=== PATIENT | female | born 1965 | race Caucasian/White ===

== ENCOUNTER 2018-05-13 12:10 | Emergency (ER) | payer MEDICARE, SELFPAY ==
[2018-05-13] VITALS (8 sets, daily range): BP systolic 106–135; BP diastolic 72–99; PULSE 116–145; RESP 2–33; TEMP 36.5–37.4; O2SAT 88–95
--- NOTE | 2018-05-13 12:49 | DI.RAD_ITS ---
SYMPTOMS/DIAGNOSIS: DYSPNEA CHEST: Frontal and lateral views. Comparison 06/16/13. The heart size and pulmonary vasculature are within normal limits. There is an infiltrate seen in the left lower lobe. The right lung is clear. No effusions or pneumothoraces are identified. Degenerative changes are seen in the spine. There are air filled loops of bowel seen in the abdomen. This may represent an ileus or possible obstruction. Please correlate clinically. IMPRESSION: Left lower lobe pneumonia.
[2018-05-13] MEDS: Albuterol/Ipratropium 3 ML UPD VIAL ×2 (12:53→13:00)
[2018-05-13] MEDS: Lactated Ringers 1,000 ML 1000 ML IV (13:20)
--- NOTE | 2018-05-13 13:27 | NUR.NOTE ---
To xray with Hallie via stretcher.Nursing Note:
--- NOTE | 2018-05-13 14:12 | DI.VRAD_ITS ---
EXAM: XR Chest, 2 Views EXAM DATE/TIME: 05/13/2018 1:43 PM CLINICAL HISTORY: 53 years old, female; Signs and symptoms; Other: Dyspnea TECHNIQUE: XR of the chest, 2 views. COMPARISON: CR CHEST 2 VIEWS PA,LAT 06/16/2013 5:49 PM FINDINGS: Lungs: Opacity in the left lower lobe may represent atelectasis or pneumonia. Pleural space: Unremarkable. No pleural effusion. No pneumothorax. Heart/Mediastinum: Stable cardiac silhouette Upper abdomen: Multiple air-filled loops of bowel may represent obstruction or ileus. Bones/joints: Osseous structures are stable IMPRESSION: 1. Multiple air-filled loops of bowel may represent obstruction or ileus. 2. Opacity in the left lower lobe may represent atelectasis or pneumonia. Dictated and Authenticated by: Steve Hinson MD. Ordering:SKINNY Vincent MD
[2018-05-13] MEDS: Azithromycin 250 MG TAB 500 MG PO (14:44)
[2018-05-13] MEDS: predniSONE 20 MG TAB 40 MG PO (14:46)
--- NOTE | 2018-05-13 15:00 | NUR.NOTE ---
Patient reports dizziness after sitting at stretcher edge x5 minutes. Return supine. HR and RR elevated; SpO2 on RA 88. Dr. Valero notified and now in room to reassess.Nursing Note:
[2018-05-13] MEDS: Lactated Ringers 500 ML IV ×2 (15:21→17:20)
[2018-05-13 15:23] LABS: Abs Immature Grans 0.09 k/cumm (0.0-0.09); Basophils % 0.1; HCT 40.4 % (36.0-46.0); HGB 13.5 g/dL (12.0-15.5); Immature Grans % 0.3; Lymphocytes % 2.4; Mean Corp. HGB Concentration 33.4 g/dL (32.0-36.0); Mean Corpuscular Hemoglobin 30.3 pg (27.0-33.0); Mean Corpuscular Volume 90.8 fL (80-95); Mean Platelet Volume 10.6 fL (8.0-11.0); Monocytes % 2.6; Neutrophils % 94.6; Platelet Count 331 x1000/uL (130-400); RBC 4.45 m/cumm (4.00-5.20); RBC Distribution Width 12.6 % (11.7-14.6)
[2018-05-13 15:27] LABS: Absolute Basophil Count 0.03 k/cumm (0.0-0.2); Absolute Lymphocyte Count 0.67 k/cumm (1.2-3.4); Absolute Monocyte Count 0.72 k/cumm (0.11-0.7); Absolute Neutrophil Count 26.31 k/cumm (1.2-6.7); White Blood Cell Count 27.81 k/cumm (4.4-10.8)
[2018-05-13 16:12] LABS: Anion Gap 14.8 mmol/L (3-11); BUN 16 mg/dL (7-18); CO2 22.2 mmol/L (21.0-32.0); CREATININE 1.21 mg/dL (0.55-1.02); Calcium 8.9 mg/dL (8.5-10.1); Chloride 101 mmol/L (98-107); Estimated GFR 46.55 (mL/min/1.73m2); Glucose 177 mg/dL (70-100); Potassium 3.9 mmol/L (3.5-5.1); Sodium 138 mmol/L (136-145)
[2018-05-13 16:20] LABS: Diff Comment Diff Reviewed; RBC Morphology Normal
--- NOTE | 2018-05-13 17:42 | NUR.NOTE ---
patient walked about 20 stepso2 sat maintained at 94% RA then HR increased 140 bpm and patient tachypenic Nursing Note:
--- NOTE | 2018-05-13 20:10 | ED.GENADUL_ITS ---
Discharge Plan Disposition Patient Disposition: HOME Condition: Improving Discharge Details Chief Complaint: RespSymp Clinical Impression: Bronchitis Primary Care Provider: ROMAIN MASTERSON ED Provider: Carlton Valero Home Meds and New Rx's Prescriptions: New azithromycin 250 mg tablet 250 mg PO DAILY 4 Days RF: 0 No Action gabapentin 300 MG capsule 300 mg PO TID RF: 0 Advair Diskus 1 EACH blister with device 1 puff Inhalation BID RF: 0 omeprazole 20 MG capsule,delayed release(DR/EC) 20 mg PO DAILY@0730 RF: 0 Proventil HFA 6.7 GM HFA aerosol inhaler 2 puff Inhalation PRN PRNRF: 0 fluoxetine 20 MG capsule 60 mg PO DAILY RF: 0 amitriptyline 25 mg Tablet 75 mg PO HS RF: 0 amlodipine 2.5 mg Tablet 2.5 mg PO DAILY RF: 0 mirtazapine 30 mg Tablet 30 mg PO HS RF: 0 aspirin 81 mg Tablet,Chewable 81 mg PO DAILY RF: 0 calcium carbonate-vitamin D3 [Calcium 500 + D (D3)] 500 mg(1,250mg) -125 unit Tablet 1 tab PO DAILY RF: 0 Discharge Instructions Instructions: Acute Bronchitis (ED) Additional Instructions: 1. Drink plenty fluids. 2. Continue usual medications, including prednisone as directed. 3. Azithromycin 250 mg once a day starting tomorrow. Return for worsening fever, difficulty breathing, chest pain, palpitations, nausea/vomiting, or any concerns. Referrals: ROMAIN MASTERSON [Primary Care Provider] - Medical Decision Making 53-year-old woman with previous episodes of bronchitis/RAD. Presents for persistent cough and dyspnea refractory to outpatient management with prednisone and albuterol. No distress on initial evaluation with mild tachypnea and diffuse wheezing. Minimal subjective improvement after receiving albuterol x2, however has improved respiratory function on reevaluation. Patient with mild hypoxia (SaO2 = 88) on room air and tachycardia. Gradual clinical improvement with IV hydration. Labs nondiagnostic (leukocytosis on steroids), CXR sugge stive of a possible left lower lobe process. Treated in the ED with additional prednisone and azithromycin. Multiple re-evaluations with gradual improvement in respiratory function and heart rate. Later walked in the ED with SaO2 = 94 on room air and heart rate 105. Discharge home with a plan for aggressive hydration, continue prednisone and albuterol, and azithromycin. She will follow-up with her PCP. Given usual and customary return instructions prior to discharge. Medical Records Medical records reviewed: Yes I reviewed the patient's medical records. Imaging Data Radiologic Study: Attestation: I personally reviewed and interpreted this imaging study as follows: Imaging: X-Ray My impression: No acute pulmonary findings. Images and interpreted independently and contemporaneously myself. Radiologist's impression: Possible left lower lobe opacity. Air-filled loops of bowel. Lab Data Lab results reviewed: Yes I reviewed the patient's lab results. Lab results narrative: WBC = 20 8K (patient on steroids), GFR = 47, glucose = 177 ECG Data Attestation: I personally reviewed and interpreted this ECG (s) as follows: (Rhythm strip: sinus tachycardia) 53-year-old woman with past medical history of anxiety, diverticulitis, and recurrent bronchitis/RAD. She typically uses albuterol at home as needed. Recently evaluated by her PCP for cough and dyspnea. Treated with prednisone. However, presents with persistent cough and subjective lack of improvement from her Tessalon Perles, prednisone, and albuterol. Denies fever/chills, chest pain, abdominal pain, palpitations. Symptoms it feels subjectively similar to previous episodes of bronchitis. HPI General Date/Time Provider Initiated Documentation: 05/13/18 12:35 . Related Data Home Medications Medication Instructions Recorded Confirmed Proventil HFA 2 puff INHALATION PRN PRN 09/26/12 05/13/18 fluoxetine 60 mg PO DAILY 09/26/12 05/13/18 fluticasone-salmeterol [Advair 1 puff INHALATION BID 09/26/12 05/13/18 250/50 Diskus] omeprazole 20 mg PO DAILY@0730 09/26/12 05/13/18 gabapentin 300 mg PO TID tab-cap NS 08/04/15 05/13/18 amitriptyline 75 mg PO HS 05/13/18 05/13/18 amlodipine 2.5 mg PO DAILY 05/13/18 05/13/18 aspirin 81 mg PO DAILY 05/13/18 05/13/18 azithromycin 250 mg PO DAILY 4 Days tab NS 05/13/18 calcium carbonate-vitamin D3 1 tab PO DAILY 05/13/18 05/13/18 [Calcium 500 + D (D3)] mirtazapine 30 mg PO HS 05/13/18 05/13/18 Previous Rx's Medication Instructions Recorded azithromycin 250 mg PO DAILY 4 Days tab NS 05/13/18 Allergies Allergy/AdvReac Type Severity Reaction Status Date / Time No Known Allergies Allergy Unverified 05/13/18 15:23 General Stated Complaint: RespSymp NIRU: 2 Review of Systems Review of Systems All systems reviewed & are unremarkable except as noted in HPI and below Constitutional Denies excessive sweating and Denies fatigue Eyes Denies change in vision ENT Reports as per HPI, Denies dysphagia and Denies dizziness Cardiovascular Reports as per HPI, Denies chest pain, Denies leg edema and Reports dyspnea Respiratory Reports cough, Reports dyspnea and Reports wheezing Gastrointestinal Denies dysphagia Genitourinary Reports as per HPI Musculoskeletal Reports as per HPI, Denies back pain and Denies muscle weakness Neurologic Denies confusion and Denies dizziness Psychiatric Reports as per HPI, Denies anxiety, Denies change in appetite and Denies confusion Endocrine Denies excessive sweating and Denies fatigue Hematologic/Lymphatic Denies easy bleeding and Denies easy bruising Allergic/Immunologic Reports wheezing PFSH Medical History Abnormal finding on EKG Anxiety Asthma Candidiasis of skin Depression GERD (gastroesophageal reflux disease) Hip pain IBS (irritable bowel syndrome) Learning disability Surgical History Appendectomy Arthroplasty of knee section Laparoscopy, diagnostic Ligation of fallopian tube Replacement of total knee joint cardiac cath Family History Other Diabetes Essential hypertension Hyperlipidemia Social History Smoking/Tobacco Use Status: Never Exam Const General: cooperative, comfortable and not in acute distress Orientation: alert and awake HENMT Head: normocephalic and atraumatic Eyes Conjunctivae: conjunctivae normal Sclera: sclerae normal Neck Neck: normal visual inspection and full ROM Resp Effort & Inspection: abnormal respiratory pattern, audible wheezes (DIFFUSE) and tachypneic (MILD) Auscultation: clear to auscultation bilaterally, no rales, no rhonchi and no wheezes Cardio Rate: regular rate Rhythm: regular rhythm Heart Sounds: S1 normal and S2 normal GI Palpation: soft, not rigid and nontender Skin Lesions: no lesions Rashes: no rashes Neuro General: alert and awake Speech: speech normal Motor: muscle tone normal throughout Extrem General: no edema Psych Mental Status: mental status grossly normal Speech and Movement: speech and movement normal Course Vital Signs Temperature 98.1 F 05/13/18 12:25 Pulse 145 H 05/13/18 12:25 Respiratory Rate 24 05/13/18 12:25 Blood Pressure 122/99 H 05/13/18 12:25 Pulse Oximetry 92 L 05/13/18 12:25 Temperature 98.1 F 05/13/18 12:25 Temperature Source Temporal Artery Scan 05/13/18 12:25 Pulse 145 H 05/13/18 12:25 Respiratory Rate 24 05/13/18 12:25 Blood Pressure 122/99 H 05/13/18 12:25 Blood Pressure Position Sitting 05/13/18 12:25 Pulse Oximetry 92 L 05/13/18 12:25 Oxygen Delivery Method Room Air 05/13/18 12:25 Oxygen Flow Rate 0 05/13/18 12:25 Pain Level 0 05/13/18 12:25
== END 2018-05-13 18:39 | disposition home or self-care (01) ==
PROVIDERS: Emergency Provider Emergency Medicine; PCP Family Medicine
DX: J40 Bronchitis, not specified as acute or chronic (principal)
CPT/HCPCS: 36415; 80048; 87449; 93005; 94640; 96360; 96361; 99284; 71046; 85025; 93010; 99283; J7512; J7620

== ENCOUNTER 2020-08-30 07:36 | Observation (INO) | payer SELFPAY ==
[2020-08-30] VITALS (94 sets, daily range): BP systolic 99–133; BP diastolic 55–104; PULSE 64–87; RESP 11–26; TEMP 36.1–36.9; O2SAT 95–100
--- NOTE | 2020-08-30 07:30 | RT.EKG_ITS ---
APPROVED REPORT Exam: Resting ECG Patient Location: E HR:81 bpm ECG Measurements Heart Rate 81 AXIS WA 175 P 54 QRSd 88 QRS 44 QT 390 T 35 QTc 455 Conclusion Sinus rhythm...normal P axis, V-rate 60- 99 Abnormal T, consider ischemia, anterior leads...T <-0.20mV, V2-V4 Physician: EKG 7: 47 Sinus rhythm, rate 81, intervals normal, inverted T waves and slight depression in V2 through V4. No reciprocal ST elevations. No evidence of STEMI. Comparison from prior EKG on 05/13/2018 demonstrates similar findings but the depression seems to be more pronounced now in V3.
--- NOTE | 2020-08-30 08:09 | DI.RAD_ITS ---
EXAM: XR PORTABLE CHEST AP CLINICAL HISTORY: chest heaviness. TECHNIQUE: 2D digital imaging was performed. COMPARISON: CR XR CHEST 2V PA LATERAL from 05/13/2018 FINDINGS: Heart size is normal. The mediastinum is not widened. Lungs are clear. No infiltrates nor obvious pleural effusions. Chest leads in place. IMPRESSION: No acute pulmonary findings on this single AP portable view of the chest. DATA REPOSITORY: RADIATION DOSE DELIVERED: All CT scans at this facility use at least one of these dose optimization techniques: automated exposure control; mA and/or kV adjustment per patient size (includes targeted e xams where dose is matched to clinical indication); or iterative reconstruction.
[2020-08-30] MEDS: nitroGLYcerin 0.4 MG TAB SL ×2 (08:21→08:33)
[2020-08-30] MEDS: Aspirin 81 MG CHEW 324 MG CH (08:21)
[2020-08-30 08:23] LABS: Abs Immature Grans 0.02 10^3/uL (0.0-0.06); Absolute Basophil Count 0.06 10^3/uL (0.0-0.2); Absolute Eosinophil Count 0.13 10^3/uL (0.0-0.7); Absolute Lymphocyte Count 1.96 10^3/uL (1.2-3.4); Absolute Monocyte Count 0.28 10^3/uL (0.1-0.8); Absolute Neutrophil Count 4.95 10^3/uL (1.2-6.7); Basophils % 0.8; Eosinophils % 1.8; HCT 41.4 % (36.0-46.0); HGB 13.6 g/dL (11.2-15.7); Immature Grans % 0.3; Lymphocytes % 26.5; MCH 30.8 pg (27.0-33.0); MCHC 32.9 % (32.0-36.0); MCV 93.9 fL (80-95); MPV 9.5 fL (8.0-11.0); Monocytes % 3.8; Neutrophils % 66.8; Nucleated RBC 0 %; Platelet Count 321 10^3/uL (130-400); RBC 4.41 10^6/uL (3.93-5.22); RDW 12.2 % (11.7-14.6); RDW-SD 42.5 fL
--- NOTE | 2020-08-30 08:28 | ED.GENADUL_ITS ---
Discharge Plan Disposition Patient Disposition: [facility] INPATIENT Condition: Stable Discharge Details Chief Complaint: Chest Pain Clinical Impression: Chest pain Primary Care Provider: Blanca Sky ED Provider: Gene Alberts Home Meds and New Rx's Prescriptions: No Action gabapentin 300 MG capsule 300 mg PO TID RF: 0 fluticasone propion-salmeterol [Advair Diskus] 1 EACH blister with device 1 puff Inhalation BID RF: 0 omeprazole 20 MG capsule,delayed release(DR/EC) 20 mg PO DAILY@0730 RF: 0 albuterol sulfate [Proventil HFA] 6.7 GM HFA aerosol inhaler 2 puff Inhalation PRN PRNRF: 0 fluoxetine 20 MG capsule 60 mg PO DAILY RF: 0 amitriptyline 25 mg Tablet 75 mg PO HS RF: 0 amlodipine 2.5 mg Tablet 2.5 mg PO DAILY RF: 0 mirtazapine 30 mg Tablet 30 mg PO HS RF: 0 aspirin 81 mg Tablet,Chewable 81 mg PO DAILY RF: 0 calcium carbonate-vitamin D3 [Calcium 500 + D (D3)] 500 mg(1,250mg) -125 unit Tablet 1 tab PO DAILY RF: 0 Medical Decision Making 55-year-old female with a past medical history of diverticulitis, GERD, anxiety, who has had previous chest pain and subsequent negative cardiac catheterization 3 years ago presents today for evaluation of left-sided chest pain. Patient states that since yesterday she has been having mild chest heaviness which she describes as a heavy brick being on her chest. It radiates to her left arm and has associated tingling down her left arm in her fingertips. It seems to be worsened with activity when she gets up and performs her work or goes up a flight of stairs, and seems to be mildly improved when she rests but does not go away with rest completely. She did take a single baby aspirin at home with no change. She has admitted to a significant amount of stress at home however over the last 2 days she states that she has been avoiding the person of stress and this is not been seemingly contributing to her symptoms. She denies any pleuritic chest pain, tearing sensation in her chest, syncope, previous cardiac disease or family history of heart attack. Denies PE risk factors such as recent long car rides, immobilization, recent surgery, prior history of DVT or PE, family history of PE or DVT, morbid obesity, exogenous estrogen and smoking, hemoptysis, history of cancer. Physical exam is unremarkable, no evidence of significant reproducible tenderness, vital signs are stable. Patient does not have any risk factors for ACS, however her symptoms of exertional and activity related chest pain are concerning. Her negative cardiac catheterization 3 years ago is certainly reassuring. Initial work-up here demonstrates normal CBC, unremarkable electrolytes, proBNP is not significantly elevated suggesting no significant cardiac strain. Symptoms appear inconsistent with PE or aortic dissection. Initial troponin is normal. EKG does show some concern. Inverted T waves with slight depression in V2 through V4. Previous EKG from 05/13/2018 demonstrates similar findings but the data depression seem to be slightly more exacerbated now. 2 nitroglycerin were given and this did slightly improve the patient's pain from 10 to a 6, but did not resolve it. Pain does seem to be mild though still at this time. She was given full dose aspirin. With her age and symptomatology in conjunction with EKG findings I do feel that observation and stress test tomorrow is indicated. We will contact the hospitalist for admis slava. 12:19 PM We did contact the hospitalist Dr. Daly. She did request that we get a repeat troponin prior to admission. Repeat troponin has returned and is normal. Patient remains clinically stable. Will admit for continued serial troponins and likely stress testing tomorrow. Dr. Daly agrees with plan and is placing orders for admission. I have extensively reviewed the treatment plan with the patient. I have addressed all patient concerns at this time. I have also discussed the plan with the admitting physician and they agree with the current assessment and plan and have agreed to assume responsibility for the patient. All parties demonstrate verbal understanding and agreement with our assessment and plan at this time. The documentation in this chart was dictated using [employer] dictation software. Please excuse any dictation errors. EKG 7: 47 Sinus rhythm, rate 81, intervals normal, inverted T waves and slight depression in V2 through V4. No reciprocal ST elevations. No evidence of STEMI. Comparison from prior EKG on 2017 demonstrates similar findings but the depression seems to be more pronounced now in V3. FINDINGS: Lungs: Unremarkable. No consolidation. Pleural spaces: Unremarkable. No pleural effusion. No pneumothorax. Heart/Mediastinum: The cardiomediastinal silhouette is fairly stable in appearance, allowing for differences in technique. Bones/joints: Unremarkable. IMPRESSION: No evidence for acute pulmonary disease. Thank you for allowing us to participate in the care of your patient. Dictated and Authenticated by: Mike Freeman MD 08/30/2020 10:03 AM Eastern Time ([place] & [place]) HPI General Date/Time Provider Initiated Documentation: 08/30/20 07:58 . HPI Narrative: 55-year-old female with a past medical history of diverticulitis, GERD, anxiety, who has had previous chest pain and subsequent negative cardiac catheterization 3 years ago presents today for evaluation of left-sided chest pain. Patient states that since yesterday she has been having mild chest heaviness which she describes as a heavy brick being on her chest. It radiates to her left arm and has associated tingling down her left arm in her fingertips. It seems to be worsened with activity when she gets up and performs her work or goes up a flight of stairs, and seems to be mildly improved when she rests but does not go away with rest completely. She did take a single baby aspirin at home with no change. She has admitted to a significant amount of stress at home however over the last 2 days she states that she has been avoiding the person of stress and this is not been seemingly contributing to her symptoms. She denies any pleuritic chest pain, tearing sensation in her chest, syncope, previous cardiac disease or family history of heart attack. Denies PE risk factors such as recent long car rides, immobilization, recent surgery, prior history of DVT or PE, family history of PE or DVT, morbid obesity, exogenous estrogen and smoking, hemoptysis, history of cancer. Related Data Home Medications Medication Instructions Recorded Confirmed albuterol sulfate [Proventil HFA] 2 puff INHALATION PRN PRN 09/26/12 08/30/20 fluoxetine 60 mg PO DAILY 09/26/12 08/30/20 fluticasone propion-salmeterol 1 puff INHALATION BID 09/26/12 08/30/20 [Advair 250/50 Diskus] omeprazole 20 mg PO DAILY@0730 09/26/12 08/30/20 gabapentin 300 mg PO TID tab-cap NS 08/04/15 08/30/20 amitriptyline 75 mg PO HS 05/13/18 08/30/20 amlodipine 2.5 mg PO DAILY 05/13/18 08/30/20 aspirin 81 mg PO DAILY 05/13/18 08/30/20 calcium carbonate-vitamin D3 1 tab PO DAILY 05/13/18 08/30/20 [Calcium 500 + D (D3)] mirtazapine 30 mg PO HS 05/13/18 08/30/20 Allergies Allergy/AdvReac Type Severity Reaction Status Date / Time No Known Allergies Allergy Unverified 05/13/18 15:23 General Stated Complaint: Chest Pain NIRU: 3 Review of Systems All systems reviewed & are unremarkable except as noted in HPI and below PFSH Medical History Abnormal finding on EKG had normal cath in past. Saw Cardiology resently and was cleared for surgery Anxiety Asthma Candidiasis of skin Depression GERD (gastroesophageal reflux disease) Hip pain IBS (irritable bowel syndrome) Learning disability Surgical History Appendectomy Arthroplasty of knee left cardiac cath section Laparoscopy, diagnostic with drainage of ovarian cyst Ligation of fallopian tube Replacement of total knee joint right Family History Other Diabetes Essential hypertension Hyperlipidemia Social History Smoking/Tobacco Use Status: Never Smoking risk assessment performed?: Yes Alcohol Intake: never Drug use: Never Substance use type: does not use Do you feel safe at home: Yes Do you feel safe in your relationship?: Yes Exam Narrative Exam Narrative: 1.Const: Well-nourished, Well-developed, appearing stated age 2.Eyes: PERRL, no conjunctival injection, and symmetrical lids. 3.ENT: Atraumatic external nose and ears. Moist MM. Neck: Symmetric, trachea midline, No thyromegaly. 4.CVS: +S1/S2, No murmurs or gallops. Peripheral pulses 2+ and equal in all extremities. Brisk capillary refill in all extremities. 5.RESP: Unlabored respiratory effort. Clear to auscultation bilaterally. No wheezes rales or rhonchi. No reproducible chest wall tenderness 6.GI: Soft, Nontender/Nondistended, No hepatosplenomegaly. No guarding or rebound. 7.MSK: Normocephalic/Atraumatic, Extremities w/o deformity or ttp No cyanosis or clubbing, Normal movement of all extremities 8.Skin: Warm, Dry. No rashes or lesions. 9.Neuro: sas clinical programmer II-XII grossly intact. Sensation grossly intact, no focal neurologic deficits. 10.Psych: (AAO) x3. Appropriate mood and affect Course Vital Signs Vital signs: Vital Signs Temperature 36.5 C 08/30/20 07:42 Pulse 77 08/30/20 07:42 Respiratory Rate 18 08/30/20 07:42 Blood Pressure 132/89 08/30/20 07:42 Pulse Oximetry 99 08/30/20 07:42 Temperature 36.5 C 08/30/20 07:42 Temperature Source Temporal Artery Scan 08/30/20 07:42 Pulse 75 08/30/20 08:26 Pulse 75 08/30/20 08:26 Respiratory Rate 14 08/30/20 08:26 Respiratory Effort Non-Labored 08/30/20 07:55 Respiratory Depth Normal 08/30/20 07:55 Respiratory Pattern Normal 08/30/20 07:55 Blood Pressure 126/72 08/30/20 08:26 Blood Pressure Mean 86 08/30/20 08:26 Blood Pressure Position Sitting 08/30/20 07:42 Pulse Oximetry 98 08/30/20 08:26 Oxygen Delivery Method Room Air 08/30/20 07:42 Oxygen Flow Rate 0 08/30/20 07:42 Lab/Test Results Lab/Test Results: Laboratory Tests Range/Units 08/30/20 07:52 WBC (4.4-10.8) 10^3/uL 7.40 RBC (3.93-5.22) 10^6/uL 4.41 Hgb (11.2-15.7) g/dL 13.6 Hct (36.0-46.0) % 41.4 MCV (80-95) fL 93.9 MCH (27.0-33.0) pg 30.8 MCHC (32.0-36.0) % 32.9 RDW (11.7-14.6) % 12.2 Plt Count (130-400) 10^3/uL 321 MPV (8.0-11.0) fL 9.5 Immature Gran % 0.3 Neutrophils % 66.8 Lymphocytes % 26.5 Monocytes % 3.8 Eosinophils % 1.8 Basophils % 0.8 Nucleated RBC % % 0 Absolute Neutrophils (1.2-6.7) 10^3/uL 4.95 Absolute Lymphocytes (1.2-3.4) 10^3/uL 1.96 Absolute Monocytes (0.1-0.8) 10^3/uL 0.28 Absolute Eosinophils (0.0-0.7) 10^3/uL 0.13 Absolute Basophils (0.0-0.2) 10^3/uL 0.06
[2020-08-30 08:39] LABS: PTT Activated 23.8 sec (21.0-27.5); Prothrombin Time 10.3 sec (9.3-11.0)
[2020-08-30 08:45] LABS: ALT 17 U/L (14-59); AST 9 U/L (15-37); Albumin 3.6 g/dL (3.4-5.0); Alkaline Phosphatase 86 U/L (46-116); BUN 21 mg/dL (7-18); Bilirubin, Total 0.3 mg/dL (0.2-1.0); CREATININE 0.8 mg/dL (0.55-1.02); Calcium 8.8 mg/dL (8.5-10.1); Chloride 107 mmol/L (98-107); Glucose 73 mg/dL (74-106); NT-proBNP 377 pg/mL (<300); Potassium 3.6 mmol/L (3.5-5.1); Sodium 144 mmol/L (136-145)
[2020-08-30 08:50] LABS: Troponin I < 0.05 ng/mL (<0.06)
--- NOTE | 2020-08-30 10:04 | DI.VRAD_ITS ---
PROCEDURE INFORMATION: Exam: XR Chest Exam date and time: 08/30/2020 9:31 AM Age: 55 years old Clinical indication: Other: Chest heaviness TECHNIQUE: Imaging protocol: XR of the chest. Views: 1 view. (2 images total) COMPARISON: CR XR CHEST 2V PA LATERAL 05/13/2018 1:37 PM FINDINGS: Lungs: Unremarkable. No consolidation. Pleural spaces: Unremarkable. No pleural effusion. No pneumothorax. Heart/Mediastinum: The cardiomediastinal silhouette is fairly stable in appearance, allowing for differences in technique. Bones/joints: Unremarkable. IMPRESSION: No evidence for acute pulmonary disease. Dictated and Authenticated by: Mike Freeman MD. Ordering:ABIEL Mills MD
[2020-08-30 11:33] LABS: Troponin I < 0.05 ng/mL (<0.06)
[2020-08-30 12:36] LABS: Source Nasal/Nares
--- NOTE | 2020-08-30 13:05 | W.PM.HP.N ---
Date of service: 08/30/20 Time of Service: 13:16 Assessment and Plan Assessment and plan (1) Chest pain: Start date: 08/30/20 Start time: 13:41 Status: Acute Assessment and plan: CP sounds to be more anxiety related with increased stresses in life in the last 2 weeks, however per ED abnormal EKG although she has had 2 negative cardiac caths and trops negative Will admit to obs on teley NPO after MN Stress in am Valium for anxiety Give prozac now as she has not taken yet Chest pain when pressing on chest. no numbness tingling or other associated sx at this time. (2) Anxiety: Start date: 08/30/20 Start time: 13:44 Status: Chronic Assessment and plan: as above. case discussed with Dr. Daly History of Present Illness History of Present Illness Chief Complaint: CP, Anxiety Narrative: 55 y.o female with hx of HLD, depression, anxiety, states worsening anxiety over the last week dealing with her mother and her nephew. She lives with her mother in a small 2 bd room apartment and states she has realized over the last 2 weeks she can no longer continue to live with her due to the way she is treated by her. Pt states CP started yesterday after dealing with her mother giving her nephew her cell phone and being treated poorly she developed CP, no associated SOB or other symptoms. She thought it was nothing until the chest pain started traveling down her left arm with numbness tingling to her fingers. ED work up with nothing unremarkable bnp 377, otherwise normal, imaging no evidence of acute pulmonary disease. She is being admitted to m/s on teley for further management. NPO after MN with Stress test tomorrow. Pain is point tenderness. Review of Systems All systems reviewed & are unremarkable except as noted in HPI and below PFSH Medical History Abnormal finding on EKG had normal cath in past. Saw Cardiology resently and was cleared for surgery Anxiety Asthma Candidiasis of skin Depression GERD (gastroesophageal reflux disease) Hip pain IBS (irritable bowel syndrome) Learning disability Surgical History Appendectomy Arthroplasty of knee left cardiac cath section Laparoscopy, diagnostic with drainage of ovarian cyst Ligation of fallopian tube Replacement of total knee joint right Family History Other Diabetes Essential hypertension Hyperlipidemia Social History Smoking/Tobacco Use Status: Never Smoking risk assessment performed?: Yes Alcohol Intake: never Drug use: Never Substance use type: does not use Do you feel safe at home: Yes Do you feel safe in your relationship?: Yes Meds Allergies and Home Medications Allergies Allergy/AdvReac Type Severity Reaction Status Date / Time No Known Allergies Allergy Unverified 05/13/18 15:23 Home Medications Medication Instructions Recorded Confirmed Type albuterol sulfate [Proventil HFA] 2 puff INHALATION PRN PRN 09/26/12 08/30/20 History fluoxetine 60 mg PO DAILY 09/26/12 08/30/20 History fluticasone propion-salmeterol 1 puff INHALATION BID 09/26/12 08/30/20 History [Advair 250/50 Diskus] omeprazole 20 mg PO DAILY@0730 09/26/12 08/30/20 History gabapentin 300 mg PO TID tab-cap NS 08/04/15 08/30/20 History amitriptyline 75 mg PO HS 05/13/18 08/30/20 History amlodipine 2.5 mg PO DAILY 05/13/18 08/30/20 History aspirin 81 mg PO DAILY 05/13/18 08/30/20 History calcium carbonate-vitamin D3 1 tab PO DAILY 05/13/18 08/30/20 History [Calcium 500 + D (D3)] mirtazapine 30 mg PO HS 05/13/18 08/30/20 History Exam Const General: cooperative, comfortable, no acute distress, No well groomed (disheveled), anxious and disheveled Nutritional Appearance: average body habitus Orientation: alert, awake and oriented x3 HENMT Head: normal to inspection, normocephalic and atraumatic Mouth: moist mucous membranes Teeth and gingiva: abnormal dentition and poor dentition Eyes Pupils: PERRL EOM: EOM intact bilaterally Neck Neck: full ROM and no JVD Lymphatic: no lymphadenopathy noted Chest Chest: normal inspection of the chest Resp Effort & Inspection: normal respiratory effort Auscultation: clear to auscultation bilaterally Cardio Jugular venous pressure: no JVD Rate: regular rate Rhythm: regular rhythm Heart Sounds: S1 normal and S2 normal GI Inspection: normal to inspection Auscultation: normal bowel sounds Skin General skin exam: no rashes or lesions noted Neuro General: patient alert, patient awake and patient oriented x3 Extrem General: normal to inspection, full ROM and no pedal edema Psych Appearance: disheveled Mental Status: mental status grossly normal Speech and Movement: speech and movement normal Mood: anxious mood Results Labs Result diagrams: 08/30/20 07:52 08/30/20 07:52 Labs: Laboratory Results - last 24 hr 08/30/20 08/30/20 08/30/20 07:52 07:52 07:52 WBC 7.40 RBC 4.41 Hgb 13.6 Hct 41.4 MCV 93.9 MCH 30.8 MCHC 32.9 RDW 12.2 Plt Count 321 MPV 9.5 Immature Gran % 0.3 Neutrophils % 66.8 Lymphocytes % 26.5 Monocytes % 3.8 Eosinophils % 1.8 Basophils % 0.8 Nucleated RBC % 0 Absolute Neutrophils 4.95 Absolute Lymphocytes 1.96 Absolute Monocytes 0.28 Absolute Eosinophils 0.13 Absolute Basophils 0.06 PT 10.3 INR 1.0 APTT 23.8 Sodium 144 Potassium 3.6 Chloride 107 Carbon Dioxide 29.0 Anion Gap 8.0 BUN 21 H Creatinine 0.8 Estimated GFR/1.73 m2 >= 60.00 Glucose 73 L Calcium 8.8 Magnesium 2.0 Total Bilirubin 0.3 AST 9 L ALT 17 Alkaline Phosphatase 86 Troponin I < 0.05 NT-Pro-B Natriuret Pep 377 H Total Protein 7.0 Albumin 3.6 COVID-19 Source 08/30/20 08/30/20 11:09 12:30 WBC RBC Hgb Hct MCV MCH MCHC RDW Plt Count MPV Immature Gran % Neutrophils % Lymphocytes % Monocytes % Eosinophils % Basophils % Nucleated RBC % Absolute Neutrophils Absolute Lymphocytes Absolute Monocytes Absolute Eosinophils Absolute Basophils PT INR APTT Sodium Potassium Chloride Carbon Dioxide Anion Gap BUN Creatinine Estimated GFR/1.73 m2 Glucose Calcium Magnesium Total Bilirubin AST ALT Alkaline Phosphatase Troponin I < 0.05 NT-Pro-B Natriuret Pep Total Protein Albumin COVID-19 Source Nasal/nares Last Vital Signs Temp 36.5 C 08/30/20 07:42 Pulse 75 08/30/20 12:31 Resp 22 08/30/20 12:31 BP 129/81 08/30/20 12:31 Pulse Ox 97 08/30/20 12:31 COVID-19 Screening Have you, or household traveled for leisure in last 14 days?: No Had IN PERSON contact w/suspected or confirmed C-19 person: No
[2020-08-30] MEDS: Enoxaparin 40 MG/0.4 ML SYR SC (13:58)
[2020-08-30] MEDS: FLUoxetine 20 MG CAP 60 MG PO (13:58)
[2020-08-30] MEDS: Gabapentin 300 MG CAP PO ×2 (13:58→19:47)
[2020-08-30] MEDS: diazePAM 5 MG TAB PO (13:58)
--- NOTE | 2020-08-30 15:45 | RT.EKG_ITS ---
APPROVED REPORT Exam: Resting ECG Patient Location: I HR:65 bpm ECG Measurements Heart Rate 65 AXIS MS 194 P 33 QRSd 89 QRS 41 QT 420 T 17 QTc 438 Conclusion Sinus rhythm...normal P axis, V-rate 60- 99 Abnormal T, consider ischemia, anterior leads...T <-0.20mV, V2-V4
[2020-08-30] MEDS: Ibuprofen 600 MG TAB PO ×2 (16:24→19:46)
[2020-08-30 19:40] LABS: COVID-19 PCR Negative (Negative)
[2020-08-30] MEDS: Budesonide/Formoterol 160/4.5 6 GM 60 PUFF INH IH (19:47)
[2020-08-30] MEDS: Normal Saline Flush 10 ML SYR IVP (20:28)
[2020-08-30 21:08] LABS: Troponin I < 0.05 ng/mL (<0.06)
[2020-08-30] MEDS: Amitriptyline 25 MG TAB 75 MG PO (21:09)
[2020-08-30] MEDS: Mirtazapine 15 MG TAB 30 MG PO (21:10)
[2020-08-31 00:27] VITALS: PULSE 68
[2020-08-31 03:53] VITALS: BP 102/67; PULSE 66; RESP 17; TEMP 36; O2SAT 95
[2020-08-31 06:37] VITALS: BP 105/71; PULSE 68; RESP 17; TEMP 36.2; O2SAT 97
[2020-08-31 07:09] LABS: Anion Gap 8.6 mmol/L (3-11); BUN 20 mg/dL (7-18); CO2 27.4 mmol/L (21.0-32.0); CREATININE 0.8 mg/dL (0.55-1.02); Calcium 8.9 mg/dL (8.5-10.1); Chloride 109 mmol/L (98-107); Glucose 83 mg/dL (74-106); Potassium 4.1 mmol/L (3.5-5.1); Sodium 145 mmol/L (136-145)
[2020-08-31 07:20] VITALS: PULSE 71
[2020-08-31] MEDS: Ibuprofen 600 MG TAB PO ×2 (07:48→14:01)
[2020-08-31] MEDS: Gabapentin 300 MG CAP PO ×2 (07:48→14:01)
[2020-08-31] MEDS: Omeprazole 20 MG CAPCR PO (07:48)
[2020-08-31] MEDS: Aspirin 81 MG CHEW PO (07:48)
[2020-08-31] MEDS: Normal Saline Flush 10 ML SYR IVP (07:49)
[2020-08-31] MEDS: FLUoxetine 20 MG CAP 60 MG PO (07:49)
[2020-08-31] MEDS: amLODIPine 2.5 MG TAB PO (07:49)
[2020-08-31] MEDS: Budesonide/Formoterol 160/4.5 6 GM 60 PUFF INH IH (09:26)
--- NOTE | 2020-08-31 12:19 | PDOC.CMIN ---
- If Service Date Differs Date of service: 08/31/20 Time of Service: 12:19 Care Management Initial Assess REASON FOR HOSPITALIZATION:: Chest Pain PAST MEDICAL HISTORY/PAST SURGICAL HISTORY:: Anxiety, Chest pain, abnormal finding on EKG, asthma, candidiasis of skin, depression, GERD, IBS, hip pain, learning disability, appendectomy, arthroplasty of knee, cardiac cath, section, diagnostic laparoscopy with drainage of ovarian cyst, ligation of fallopian tube, right TKA, picking self injurious behavior r/t anxiety with scattered scarring on body. Moderna vaccine [facility] in [place]. PREVIOUS FUNCTIONAL STATUS/SOCIAL/FAMILY SUPPORTS:: Ana resides in [place] with her mother and nephew in an apartment. She is and belongs to [employer]. She is employed and independent at baseline in the community. CURRENT FUNCTIONAL STATUS:: Ana discharged prior to CM connecting with her. IA developed from case review and chart review. CHAD Sumner connected with Ana who shared no concerns re: discharge and identified no additional needs at that time. ADVANCE DIRECTIVES:: On file at [facility]-patient provided new copy to update. Has patient been provided with info about the portal/API?: Yes Did the patient sign up for the portal?: No CODE STATUS:: Full Code INSURANCE COVERAGE / FINANCIAL ISSUES:: Self Pay-JOSE referral for education and financial asst. CURRENT HOME/COMMUNITY SERVICES/EQUIPMENT:: Hearing aide. PRIMARY CARE PHYSICIAN:: Blanca Sky POTENTIAL DISCHARGE NEEDS:: JOSE-insurance, updated AD, discussion central to anxiety/depression and self harm resources. Follow up appointments. MPI Stress test. PATIENT/FAMILY EDUCATION NEEDS:: Review of discharge instructions, discuss Ask Me Three. ANTICIPATED BARRIERS TO DISCHARGE:: None identified. TRANSPORTATION:: Via private vehicle with family/friend. PLAN:: Anticipate Ana will return home when ready per MD. She will follow up with her PCP and plan of care as prescribed. She will transport via private vehicle with family/friend.
--- NOTE | 2020-08-31 13:27 | W.PM.DS.N ---
Date of service: 08/31/20 Time of Service: 13:28 DS: Diagnosis Discharge Diagnosis (1) Chest pain: Status: Acute (2) Anxiety: Status: Chronic Discharge Plan Disposition Patient Disposition: HOME Condition: Stable Discharge Details Reason For Visit: CHEST PAIN Admit Date/Time: 08/30/20 12:07 Admit Provider: Courtney Daly Attending Provider: Courtney Daly Primary Care Provider: [facility] Course Hospital Course: This is a 55 y.o female with hx of HLD, depression, anxiety, who has experienced worsening anxiety over the last week dealing with her mother and her nephew. She lives with her mother in a small 2 bd room apartment and states she has realized over the last 2 weeks she can no longer continue to live with her due to the way she is treated by her. Pt states CP started after dealing with her mother giving her nephew her cell phone and being treated poorly. She thought it was nothing until the chest pain started traveling down her left arm with numbness tingling to her fingers. ED work up unremarkable except bnp 377, imaging no evidence of acute pulmonary disease. She referred to observation on m/s on telemetry for further monitoring. overnight she remained hemodynamically stable with no acute ST segment changes and negative serial troponins. her pain was responsive to heat and exacerbated with palpation. Her pain is not cardiac and she is safe for discharge to home to follow up with pcp outpatient. discharge discussed with Dr Daly. Home Meds and New Rx's Prescriptions: Continued gabapentin 300 MG capsule 300 mg PO TID RF: 0 fluticasone propion-salmeterol [Advair Diskus] 1 EACH blister with device 1 puff Inhalation BID RF: 0 omeprazole 20 MG capsule,delayed release(DR/EC) 20 mg PO DAILY@0730 RF: 0 albuterol sulfate [Proventil HFA] 6.7 GM HFA aerosol inhaler 2 puff Inhalation PRN PRNRF: 0 fluoxetine 20 MG capsule 60 mg PO DAILY RF: 0 amitriptyline 25 mg Tablet 75 mg PO HS RF: 0 amlodipine 2.5 mg Tablet 2.5 mg PO DAILY RF: 0 mirtazapine 30 mg Tablet 30 mg PO HS RF: 0 aspirin 81 mg Tablet,Chewable 81 mg PO DAILY RF: 0 calcium carbonate-vitamin D3 [Calcium 500 + D (D3)] 500 mg(1,250mg) -125 unit Tablet 1 tab PO DAILY RF: 0 Discharge Instructions Instructions: Noncardiac Chest Pain (DC) Additional Instructions: use heat to affected areas for comfort Referrals: Manoj Dee [ [facility] STAFF PHYSICIAN] - 09/01/20 11:50 am Activity:: Activity as Tolerated Equipment/Supplies:: No Equipment Needed Diet:: As Tolerated Discharge Orders Discharge Orders: Discharge Order (Routine); Ordered 08/31/20 Ordered By: Ami Holden DS: Summary Time Spent with Patient providing and/or coordinating discharge services: Less than 30 minutes Status at Discharge Functional status at discharge: independent ambulation Overall status at discharge: patient is back to baseline Mental Status: mental status grossly normal Speech and Movement: speech and movement normal Mood: anxious mood Affect: anxious affect Exam Const General: cooperative, comfortable, no acute distress, No well groomed (disheveled), anxious and disheveled Nutritional Appearance: average body habitus Orientation: alert, awake and oriented x3 HENMT Head: normal to inspection, normocephalic and atraumatic Mouth: moist mucous membranes Teeth and gingiva: abnormal dentition and poor dentition Eyes Pupils: PERRL EOM: EOM intact bilaterally Neck Neck: full ROM and no JVD Lymphatic: no lymphadenopathy noted Chest Chest: normal inspection of the chest Resp Effort & Inspection: normal respiratory effort Auscultation: clear to auscultation bilaterally Cardio Jugular venous pressure: no JVD Rate: regular rate Rhythm: regular rhythm Heart Sounds: S1 normal and S2 normal GI Inspection: normal to inspection Auscultation: normal bowel sounds Skin General skin exam: no rashes or lesions noted Neuro General: patient alert, patient awake and patient oriented x3 Extrem General: normal to inspection, full ROM and no pedal edema Psych Appearance: disheveled Mental Status: mental status grossly normal Speech and Movement: speech and movement normal Mood: anxious mood Affect: anxious affect DS: Data Vitals/I&O Vitals and I&O: Vital Signs Temperature 36.2 C L 08/31/20 06:37 Temperature Source Tympanic 08/31/20 06:37 Pulse 71 08/31/20 07:20 Pulse Rhythm Regular 08/31/20 07:45 Pulse 77 08/30/20 12:31 Respiratory Rate 17 08/31/20 06:37 Respiratory Effort Non-Labored 08/31/20 07:45 Respiratory Depth Normal 08/31/20 07:45 Respiratory Pattern Normal 08/31/20 07:45 Blood Pressure 105/71 08/31/20 06:37 Blood Pressure Mean 94 08/30/20 12:31 Blood Pressure Position Sitting 08/30/20 07:42 Pulse Oximetry 97 08/31/20 06:37 Oxygen Delivery Method Room Air 08/31/20 06:37 Oxygen Flow Rate 0 08/31/20 06:37 Pain Level 0 08/31/20 08:48 Intake & Output 08/30/20 08/31/20 08/31/20 23:59 11:59 23:59 Intake Total 250 / 250 Output Total 250 / 250 300 / 300 Balance 0 / 0 -300 / -300 Weight 87.7 kg Intake: IV 10 Oral 240 / 240 Output: Urine 250 / 250 300 / 300 Other: Urine Color Straw Yellow Urine Appearance Clear Clear Urine Odor Normal Comment Voided in toilet x1 Voiding Methods Toilet Toilet Data Completed and Pending Labs on day of discharge: Labs from last 24 hours 08/31/20 08/30/20 08/30/20 06:22 20:20 12:30 Sodium 145 Potassium 4.1 Chloride 109 H Carbon Dioxide 27.4 Anion Gap 8.6 BUN 20 H Creatinine 0.8 Estimated GFR/1.73 m2 >= 60.00 Glucose 83 Calcium 8.9 Troponin I < 0.05 SARS-CoV-2 (PCR) Negative [facility] Medical History (Updated 08/30/20 @ 13:44 by Soraya Nye NP) Abnormal finding on EKG had normal cath in past. Saw Cardiology resently and was cleared for surgery Anxiety Asthma Candidiasis of skin Depression GERD (gastroesophageal reflux disease) Hip pain IBS (irritable bowel syndrome) Learning disability Surgical History Appendectomy Arthroplasty of knee left cardiac cath section Laparoscopy, diagnostic with drainage of ovarian cyst Ligation of fallopian tube Replacement of total knee joint right Family History Other Diabetes Essential hypertension Hyperlipidemia Social History Smoking/Tobacco Use Status: Never Smoking risk assessment performed?: Yes Alcohol Intake: never Drug use: Never Substance use type: does not use Do you feel safe at home: Yes Do you feel safe in your relationship?: Yes
[2020-08-31 13:35] VITALS: BP 106/66; PULSE 71; RESP 17; TEMP 36.5; O2SAT 95
[2020-08-31] MEDS: Enoxaparin 40 MG/0.4 ML SYR SC (14:01)
--- NOTE | 2020-08-31 14:05 | CHAPLAIN ---
Zulema and I know each other from when other family members have been in the hospital and I've helped Zulema complete her ADs before. She said she is being discharged, and then talked about some of the stresses in her life. She hopes to be finding her own living situation soon, so she can move out from her mom's place. Zulema said she is not sure who are listed as agents on her Advance Directive, but she has an appointment with her PCP tomorrow. I suggested she ask the PCP's office to see what her current AD says, and I gave her a copy of a new AD and my phone number if she wants help completing a new one.
[2020-08-31 14:13] VITALS: PULSE 74
== END 2020-08-31 14:23 | disposition home or self-care (01) ==
LOC: ER 12:22 → MS 12:36
PROVIDERS: Nurse Practitioner Family; Admitting Provider Internal Medicine; Emergency Provider Student in an Organized Health Care Education/Training Program; PCP Family Medicine; Visit Provider Internal Medicine
DX: R07.9 Chest pain, unspecified (principal); F41.9 Anxiety disorder, unspecified; R94.31 Abnormal electrocardiogram [ECG] [EKG]; E78.5 Hyperlipidemia, unspecified; F32.9 Major depressive disorder, single episode, unspecified; J45.909 Unspecified asthma, uncomplicated; K21.9 Gastro-esophageal reflux disease without esophagitis; K58.9 Irritable bowel syndrome, unspecified; Z79.899 Other long term (current) drug therapy; Z20.822 Contact with and (suspected) exposure to COVID-19
CPT/HCPCS: 36415; 80048; 80053; 87635; 93005; 94640; 99285; J1650; 71045; 83735; 83880; 84484; 85025; 85610; 85730; 93010; 99217; 99220; G0378

== ENCOUNTER 2020-10-03 17:53 | Emergency (ER) | payer MEDICAID, SELFPAY ==
[2020-10-03 17:59] VITALS: BP 148/78; PULSE 69; RESP 18; TEMP 36.5; O2SAT 98
--- NOTE | 2020-10-03 18:15 | DI.CT_ITS ---
Exam(s) CT ABDOMEN PELVIS W EXAM: CT ABDOMEN PELVIS W CLINICAL HISTORY: lower abd pain, r/o acute process TECHNIQUE: Imaging Protocol: Axial computed tomography images with coronal and sagittal reformatted images were created and reviewed CONTRAST MATERIAL: Intravenous: Omnipaque 350 Contrast volume:100 mL Oral: No COMPARISON: No exams were available for comparison FINDINGS: The examination is limited due to patient motion artifact. ABDOMEN: Lung Bases: Normal where visualized. Liver: Normal density. No measurable mass. Portal, Superior Mesenteric, and Splenic Veins: Unremarkable. Gallbladder and Biliary Tract: No radiodense calculus or dilation. Pancreas: Normal density, no abnormal calcifications or inflammatory process. Spleen: Normal. Adrenals: No masses seen. Kidneys: Normal size, contour and axis. No radiodense stones or obstructive uropathy. No masses seen. Abdominal Aorta: Abdominal portion non-dilated. Bowel: No obstruction or bowel wall thickening. No evidence of appendicitis. Peritoneal Cavity: No ascites, collection or mesenteric inflammatory response. No free air. Lymph Nodes: Within normal limits. Bones: Within normal limits for the patient's age. There is a left total hip arthroplasty. Soft Tissues: Unremarkable. PELVIS: Bladder: Symmetric distention, no gross wall thickening. Portions of the urinary bladder obscured fro m artifact in the left hip prosthesis. Reproductive Organs: Unremarkable as visualized. Lymph Nodes: Within normal limits. Bones: Within normal limits for the patient's age. IMPRESSION: 1. Examination limited by patient motion artifact. 2. No acute abdominal or pelvic process. RADIATION DOSE DELIVERED: 1,015.51mGy.cm Total DLP DATA REPOSITORY: All CT scans at this facility are submitted to the National Radiology Data Registry (NRDR) Dose Index Registry (DIR) with the [employer] (A[employer]). RADIATION OPTIMIZATION: All CT scans at this facility use at least one of these dose optimization te chniques: automated exposure control; mA and/or kV adjustment per patient size (includes targeted exa ms where dose is matched to clinical indication); or iterative reconstruction.
--- NOTE | 2020-10-03 18:30 | ED.GENADUL_ITS ---
Discharge Plan Disposition Patient Disposition: HOME Condition: Improving Discharge Details Clinical Impression: Abdominal pain Primary Care Provider: Blanca Sky ED Provider: Karyna Craft Home Meds and New Rx's Prescriptions: New dicyclomine 20 mg tablet 20 mg PO TID PRN (Reason: pain) Qty: 10 RF: 0 Continued gabapentin 300 MG capsule 300 mg PO TID RF: 0 fluticasone propion-salmeterol [Advair Diskus] 1 EACH blister with device 1 puff Inhalation BID RF: 0 omeprazole 20 MG capsule,delayed release(DR/EC) 20 mg PO DAILY@0730 RF: 0 albuterol sulfate [Proventil HFA] 6.7 GM HFA aerosol inhaler 2 puff Inhalation PRN PRNRF: 0 fluoxetine 20 MG capsule 60 mg PO DAILY RF: 0 amitriptyline 25 mg Tablet 75 mg PO HS RF: 0 amlodipine 2.5 mg Tablet 2.5 mg PO DAILY RF: 0 mirtazapine 30 mg Tablet 30 mg PO HS RF: 0 aspirin 81 mg Tablet,Chewable 81 mg PO DAILY RF: 0 calcium carbonate-vitamin D3 [Calcium 500 + D (D3)] 500 mg(1,250mg) -125 unit Tablet 1 tab PO DAILY RF: 0 sulfamethoxazole-trimethoprim 800-160 mg tablet 1 tab PO BID RF: 0 Discharge Instructions Instructions: Abdominal Pain (ED) Additional Instructions: Drink plenty of fluids and get plenty of rest. Alternate tylenol and motrin as needed and directed for pain. Your prescriptions has been sent electronically to your pharmacy. Call the pharmacy to make sure your prescription is ready before pickup. Take the prescription as directed. Take Zofran as needed and directed for nausea and vomiting. You will receive a call from the radiology department regarding scheduling of your pelvic ultrasound. Follow-up with your primary care doctor in 1 week. Return to the emergency department with any worsening or new concerning symp toms. Discharge Data Discharge Date/Time-TO BE ENTERED AT DEPARTURE: 10/03/20 20:40 Discharge Physician: Karyna Craft Medical Decision Making 55-year-old female with a history of anxiety, GERD, asthma, depression, irritable bowel syndrome presents for lower abdominal pain for the past 5 days. She is currently on Bactrim for possible UTI per her PCP. Patient appears comfortable and nontoxic. Her abdomen is soft but tender in the lower quadrants. No rebound, rigidity or guarding. Differential diagnosis includes UTI, pyelonephritis, colitis, diverticulitis, appendicitis, bowel obstruction, irritable bowel syndrome, etc. We will place an IV, bolus IV fluids, screening labs, urinalysis, CT abdomen pelvis and give Toradol, Zofran and reassess. Labs and imaging reviewed and unremarkable. Normal white blood cell count. Urinalysis notes trace blood but no obvious infection. Patient states she is not sexually active and has had a tubal ligation and denies any chance of . Patient reassessed and still complaining of some lower abdominal pain but she feels good to go home. We will give a dose of Bentyl for possible irritable bowel syndrome. We will also order outpatient pelvic ultrasound for further assessment of uterus and ovaries. Disposition decision made weighing the risks and benefits of hospitalization versus outpatient treatment, the risk for further decompensation, and the patient's wishes. Advised to follow up with the primary care doctor for re-evaluation. Usual and customary return precautions given prior to discharge. Medical Records Medical records reviewed: Yes I reviewed the patient's medical records. Imaging Data Radiologic Study: Radiologist's impression: CT Abdomen And Pelvis With Contrast Exam date and time: 10/03/2020 6:31 PM Age: 55 years old Clinical indication: Abdominal pain TECHNIQUE: Imaging protocol: Computed tomography of the abdomen and pelvis with contrast. COMPARISON: No relevant prior studies available. FINDINGS: Limitations: Artifact from motion. Lungs: Mild dependent atelectasis at the lung bases. 5 mm right lower lobe pulmonary nodule, image 4 of series 4. Liver: Normal appearing liver. Gallbladder and bile ducts: Gallbladder partially obscured by motion but grossly unremarkable, as seen. No calcified gallstones or biliary dilatation. Pancreas: Pancreas partially obscured by motion but grossly unremarkable, as seen. Spleen: Spleen partially obscured by motion but grossly unremarkable, as seen. Adrenal glands: Normal appearing adrenal glands. Kidneys and ureters: Kidneys partially obscured by motion but grossly unremarkable, as seen. No hydronephrosis. Stomach and bowel: No oral contrast. Stomach partially decompressed. No small bowel dilatation to suggest obstruction. Normal-appearing colon. No evidence of diverticulitis or colitis. Appendix: Appendix not identified, obscured if present. Correlation with surgical history recommended. If there is clinical concern for acute appendicitis and the patient still has an appendix, additional evaluation would be recommended. Intraperitoneal space: No gross ascites or free air. Vasculature: Normal caliber abdominal aorta. Normal caliber abdominal aorta. Lymph nodes: No pathologically enlarged mesenteric, retroperitoneal, or pelvic sidewall lymph nodes. Urinary bladder: Urinary bladder partially obscured by streak artifact but grossly unremarkable, as seen. Reproductive: Uterus and ovaries partially obscured and not well evaluated but grossly normal in size. Bones/joints: Prior left hip arthroplasty with streak artifact created by the metallic prosthesis partially obscuring the lower pelvis. No acute fracture seen among the bones of the abdomen or pelvis. Spinal degenerative change with endplate irregularities and small Schmorl's nodes at multiple levels. Soft tissues: No significant ventral or inguinal hernia. IMPRESSION: No acute bowel pathology demonstrated. Lab Data Lab results reviewed: Yes I reviewed the patient's lab results. Labs: Laboratory Tests Range/Units 10/03/20 10/03/20 10/03/20 18:13 18:13 19:25 WBC (4.4-10.8) 10^3/uL 7.93 RBC (3.93-5.22) 10^6/uL 4.27 Hgb (11.2-15.7) g/dL 13.1 Hct (36.0-46.0) % 39.2 MCV (80-95) fL 91.8 MCH (27.0-33.0) pg 30.7 MCHC (32.0-36.0) % 33.4 RDW (11.7-14.6) % 11.9 Plt Count (130-400) 10^3/uL 274 MPV (8.0-11.0) fL 9.9 Immature Gran % 0.1 Neutrophils % 59.3 Lymphocytes % 34.0 Monocytes % 4.8 Eosinophils % 0.9 Basophils % 0.9 Nucleated RBC % % 0 Absolute Neutrophils (1.2-6.7) 10^3/uL 4.70 Absolute Lymphocytes (1.2-3.4) 10^3/uL 2.70 Absolute Monocytes (0.1-0.8) 10^3/uL 0.38 Absolute Eosinophils (0.0-0.7) 10^3/uL 0.07 Absolute Basophils (0.0-0.2) 10^3/uL 0.07 Sodium (136-145) mmol/L 139 Potassium (3.5-5.1) mmol/L 3.7 Chloride (98-107) mmol/L 105 Carbon Dioxide (21.0-32.0) mmol/L 26.0 Anion Gap (3-11) mmol/L 8.0 BUN (7-18) mg/dL 20 H Creatinine (0.55-1.02) mg/dL 1.1 H Estimated GFR/1.73 m2 (mL/min/1.73m2) 51.57 Glucose (74-106) mg/dL 103 Calcium (8.5-10.1) mg/dL 8.8 Total Bilirubin (0.2-1.0) mg/dL 0.4 AST (15-37) U/L 11 L ALT (14-59) U/L 16 Alkaline Phosphatase (46-116) U/L 81 Total Protein (6.4-8.2) g/dL 7.0 Albumin (3.4-5.0) g/dL 3.8 Lipase (73-393) U/L 59 Urine Color (Yellow) Yellow Urine Clarity (Clear) Clear Urine pH (5-8) 6.5 Ur Specific [place] (1.005-1.025) 1.015 Urine Protein (Negative) mg/dL Negative Urine Ketones (Negative) mg/dL Negative Urine Blood (Negative) Trace-intact H Urine Nitrite (Negative) Negative Urine Bilirubin (Negative) Negative Urine Urobilinogen (Up TO 0.2) EU/dL 0.2 Ur Leukocyte Esterase (Negative) Negative Urine RBC (0-2) HPF Urine WBC (0-5) HPF Negative Ur Epithelial Cells (Negative) HPF Negative Urine Crystals (Negative) HPF Negative Urine Bacteria (Negative) HPF Negative Urine Mucus (Negative) Negative Ur Culture Indicated? No Urine Glucose (Negative) mg/dL Negative HPI General Mode of arrival: ambulatory . Date/Time Provider Initiated Documentation: 10/03/20 17:58 . Limitations to Documentation: no limitations . Information obtained by: patient . HPI Narrative: Patient is a 55-year-old female with a history of anxiety, depression, GERD, irritable bowel syndrome, C- section, tubal ligation, presents with lower abdominal pain for the past several days. Patient states the abdominal pain has been intermittent, sharp without radiation. She states she saw her primary care doctor earlier this week for this pain and was started on antibiotics for possible urine infection. She states she is scheduled for a CT scan of her abdomen for this pain in 3 days but states the pain became worse today so she came to the emergency department. She admits to nausea but denies any vomiting. She states she is normally constipated and had a normal small bowel movement yesterday which is not unusual for her. She denies any urinary symptoms. She states she is not sexually active and denies any vaginal discharge or lesions. Related Data Home Medications Medication Instructions Recorded Confirmed albuterol sulfate [Proventil HFA] 2 puff INHALATION PRN PRN 09/26/12 10/03/20 fluoxetine 60 mg PO DAILY 09/26/12 10/03/20 fluticasone propion-salmeterol 1 puff INHALATION BID 09/26/12 10/03/20 [Advair Diskus] omeprazole 20 mg PO DAILY@0730 09/26/12 10/03/20 gabapentin 300 mg PO TID tab-cap NS 08/04/15 10/03/20 amitriptyline 75 mg PO HS 05/13/18 10/03/20 amlodipine 2.5 mg PO DAILY 05/13/18 10/03/20 aspirin 81 mg PO DAILY 05/13/18 10/03/20 calcium carbonate-vitamin D3 1 tab PO DAILY 05/13/18 10/03/20 [Calcium 500 + D (D3)] mirtazapine 30 mg PO HS 05/13/18 10/03/20 dicyclomine 20 mg PO TID PRN #10 tab 10/03/20 sulfamethoxazole-trimethoprim 1 tab PO BID 10/03/20 10/03/20 Previous Rx's Medication Instructions Recorded dicyclomine 20 mg PO TID PRN #10 tab 10/03/20 Allergies Allergy/AdvReac Type Severity Reaction Status Date / Time No Known Allergies Allergy Unverified 10/03/20 18:05 General Stated Complaint: Abd Prob NIRU: 3 Review of Systems All systems reviewed & are unremarkable except as noted in HPI and below Constitutional Constitutional: Reports as per HPI, Denies chills and Denies fever(s) Eyes Eyes: Denies blurry vision ENT Ears, Nose, Mouth, and Throat: Denies dizziness, Denies sore throat and Denies throat swelling Cardiovascular Cardiovascular: Denies chest pain and Denies dyspnea Respiratory Respiratory: Denies cough and Denies dyspnea Gastrointestinal Gastrointestinal: Reports abdominal pain, Denies diarrhea and Denies vomiting Genitourinary Genitourinary: Denies hematuria and Denies dysuria Musculoskeletal Musculoskeletal: Denies back pain and Denies numbness Integumentary/Breasts Skin/Breast: Denies lesions and Denies rash Neurologic Neurologic: Denies dizziness, Denies localized weakness and Denies numbness Allergic/Immunologic Allergic/Immunologic: Denies throat swelling [facility] Medical History (Updated 10/03/20 @ 20:14 by Karyna Craft DO) Abnormal finding on EKG had normal cath in past. Saw Cardiology resently and was cleared for surgery Anxiety Asthma Candidiasis of skin Depression GERD (gastroesophageal reflux disease) Hip pain IBS (irritable bowel syndrome) Learning disability Surgical History Appendectomy Arthroplasty of knee left cardiac cath section Laparoscopy, diagnostic with drainage of ovarian cyst Ligation of fallopian tube Replacement of total knee joint right Family History Other Diabetes Essential hypertension Hyperlipidemia Social History Smoking/Tobacco Use Status: Never Smoking risk assessment performed?: Yes Alcohol Intake: never Drug use: Never Substance use type: does not use Do you feel safe at home: Yes Do you feel safe in your relationship?: Yes Exam Const General: cooperative and no acute distress HENMT Head: normal to inspection Face and sinus: normal facial exam Eyes General: appearance normal, both eyes and all related structures EOM: EOM intact bilaterally Neck Neck: normal visual inspection and No submandibular swelling Lymphatic: no lymphadenopathy noted Chest Chest: normal inspection of the chest and no tenderness Resp Effort & Inspection: normal respiratory effort and able to speak in complete sentences Auscultation: clear to auscultation bilaterally Cardio Rate: regular rate Rhythm: regular rhythm GI Inspection: normal to inspection Palpation: soft, not firm, not rigid and tender (Minimal across lower abdomen) Auscultation: hypoactive bowel sounds Skin General skin exam: no rashes or lesions noted Neuro General: patient alert, patient awake and patient oriented x3 Cognition: normal cognition Speech: speech normal Motor: muscle tone normal throughout Sensory Exam: no sensory deficits noted Extrem General: normal to inspection, full ROM, capillary refill normal, no calf tenderness bilaterally and no edema Psych Appearance: grossly normal Mental Status: mental status grossly normal Speech and Movement: speech and movement normal Affect: normal affect Course Vital Signs Vital signs: Vital Signs Temperature 97.7 F 10/03/20 17:59 Pulse 69 10/03/20 17:59 Respiratory Rate 18 10/03/20 17:59 Blood Pressure 148/78 H 10/03/20 17:59 Pulse Oximetry 98 10/03/20 17:59 Temperature 97.7 F 10/03/20 17:59 Temperature Source Temporal Artery Scan 10/03/20 17:59 Pulse 69 10/03/20 17:59 Respiratory Rate 18 10/03/20 17:59 Respiratory Effort Non-Labored 10/03/20 17:59 Blood Pressure 148/78 H 10/03/20 17:59 Blood Pressure Position Supine 10/03/20 17:59 Pulse Oximetry 98 10/03/20 17:59 Oxygen Delivery Method Room Air 10/03/20 17:59 Oxygen Flow Rate 0 10/03/20 17:59 Pain Level 9 10/03/20 17:59
[2020-10-03 18:38] LABS: Abs Immature Grans 0.01 10^3/uL (0.0-0.06); Absolute Basophil Count 0.07 10^3/uL (0.0-0.2); Absolute Eosinophil Count 0.07 10^3/uL (0.0-0.7); Absolute Monocyte Count 0.38 10^3/uL (0.1-0.8); Basophils % 0.9; Eosinophils % 0.9; HCT 39.2 % (36.0-46.0); HGB 13.1 g/dL (11.2-15.7); Immature Grans % 0.1; MCH 30.7 pg (27.0-33.0); MCHC 33.4 % (32.0-36.0); MCV 91.8 fL (80-95); MPV 9.9 fL (8.0-11.0); Monocytes % 4.8; Neutrophils % 59.3; Nucleated RBC 0 %; Platelet Count 274 10^3/uL (130-400); RBC 4.27 10^6/uL (3.93-5.22); RDW 11.9 % (11.7-14.6); RDW-SD 40.2 fL; WBC 7.93 10^3/uL (4.4-10.8)
[2020-10-03 18:50] LABS: ALT 16 U/L (14-59); AST 11 U/L (15-37); Albumin 3.8 g/dL (3.4-5.0); Alkaline Phosphatase 81 U/L (46-116); BUN 20 mg/dL (7-18); Bilirubin, Total 0.4 mg/dL (0.2-1.0); CREATININE 1.1 mg/dL (0.55-1.02); Calcium 8.8 mg/dL (8.5-10.1); Chloride 105 mmol/L (98-107); Estimated GFR 51.57 (mL/min/1.73m2); Glucose 103 mg/dL (74-106); Lipase 59 U/L (73-393); Potassium 3.7 mmol/L (3.5-5.1); Sodium 139 mmol/L (136-145)
[2020-10-03] MEDS: Ketorolac 30 MG/ML VIAL IVP (18:57)
[2020-10-03] MEDS: Ondansetron 4 MG/2 ML VIAL IVP (18:57)
[2020-10-03] MEDS: Normal Saline 1,000 ML 1000 ML IV (18:57)
[2020-10-03] MEDS: Omnipaque 350 MG/ML 100 ML BTL IJ (18:58)
[2020-10-03] MEDS: Normal Saline - Diluent 50 ML VIAL IV (18:59)
--- NOTE | 2020-10-03 19:32 | DI.VRAD_ITS ---
PROCEDURE INFORMATION: Exam: CT Abdomen And Pelvis With Contrast Exam date and time: 10/03/2020 6:31 PM Age: 55 years old Clinical indication: Abdominal pain TECHNIQUE: Imaging protocol: Computed tomography of the abdomen and pelvis with contrast. COMPARISON: No relevant prior studies available. FINDINGS: Limitations: Artifact from motion. Lungs: Mild dependent atelectasis at the lung bases. 5 mm right lower lobe pulmonary nodule, image 4 of series 4. Liver: Normal appearing liver. Gallbladder and bile ducts: Gallbladder partially obscured by motion but grossly unremarkable, as seen. No calcified gallstones or biliary dilatation. Pancreas: Pancreas partially obscured by motion but grossly unremarkable, as seen. Spleen: Spleen partially obscured by motion but grossly unremarkable, as seen. Adrenal glands: Normal appearing adrenal glands. Kidneys and ureters: Kidneys partially obscured by motion but grossly unremarkable, as seen. No hydronephrosis. Stomach and bowel: No oral contrast. Stomach partially decompressed. No small bowel dilatation to suggest obstruction. Normal-appearing colon. No evidence of diverticulitis or colitis. Appendix: Appendix not identified, obscured if present. Correlation with surgical history recommended. If there is clinical concern for acute appendicitis and the patient still has an appendix, additional evaluation would be recommended. Intraperitoneal space: No gross ascites or free air. Vasculature: Normal caliber abdominal aorta. Normal caliber abdominal aorta. Lymph nodes: No pathologically enlarged mesenteric, retroperitoneal, or pelvic sidewall lymph nodes. Urinary bladder: Urinary bladder partially obscured by streak artifact but grossly unremarkable, as seen. Reproductive: Uterus and ovaries partially obscured and not well evaluated but grossly normal in size. Bones/joints: Prior left hip arthroplasty with streak artifact created by the metallic prosthesis partially obscuring the lower pelvis. No acute fracture seen among the bones of the abdomen or pelvis. Spinal degenerative change with endplate irregularities and small Schmorl's nodes at multiple levels. Soft tissues: No significant ventral or inguinal hernia. IMPRESSION: No acute bowel pathology demonstrated. Dictated and Authenticated by: Anjel Serrano MD. Ordering:ANTONIETTA Troncoso MD
[2020-10-03 19:34] LABS: Bilirubin Negative (Negative); Blood Trace-intact (Negative); Clarity Clear (Clear); Glucose Negative (Negative); Ketones Negative (Negative); Leukocyte Esterase Negative (Negative); Nitrite Negative (Negative); Specific Gravity 1.015 (1.005-1.025); Urobilinogen 0.2 EU/dL (Up TO 0.2); pH 6.5 (5-8)
[2020-10-03 19:59] LABS: Bacteria Negative HPF (Negative); C & S Indicated? No; Crystals Negative HPF (Negative); Epithelial Cells Negative HPF (Negative); Mucus Negative (Negative); WBC Negative HPF (0-5)
[2020-10-03] MEDS: Dicyclomine 20 MG TAB 40 MG PO (20:25)
[2020-10-03] MEDS: Dicyclomine 20 MG TAB PO (20:25)
[2020-10-03] MEDS: Ondansetron O.D.T. 4 MG TABEF, 3 TABS/BTL PO (20:26)
[2020-10-03 20:27] VITALS: BP 126/73; PULSE 71; RESP 18; TEMP 36.5; O2SAT 99
== END 2020-10-03 20:40 | disposition home or self-care (01) ==
PROVIDERS: Emergency Provider Physician Assistant; PCP Family Medicine
DX: R10.30 Lower abdominal pain, unspecified (principal); R11.0 Nausea
CPT/HCPCS: 36415; 80053; 83690; 96361; 96374; 96375; 99285; 74177; 81003; 81015; 85025; J1885; J2405; J3490

== ENCOUNTER 2020-10-06 13:49 | Outpatient (CLI) | payer MEDICAID, SELFPAY ==
--- NOTE | 2020-10-06 | DI.US_ITS ---
Exam(s) US PELVIS TRANSVAGINAL EXAM: US PELVIS TRANSVAGINAL CLINICAL HISTORY: LOWER ABD PAIN TECHNIQUE: Ultrasound performed using standard protocol. COMPARISON: No exams were available for comparison FINDINGS: Pelvic ultrasound was performed transabdominally and transvaginally. 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 There is an apparent small fibroid in the left uterine horn. Overall uterine measurements, 6.5 cm x 2.0 cm x 3.5 cm. Endometrial stripe measures around 1 millimeter in thickness and appears homogeneous. The ovaries are unremarkable in appearance, right ovary measures 17 x 10 x 7 millimeters and left ova ry measures 10 x 6 x 8 millimeters. Limited scanning of the kidneys is unremarkable. No free fluid in the cul-de-sac. IMPRESSION: Probable uterine fibroid in a bicornuate uterus. No other significant findings. DATA REPOSITORY:
== END 2020-10-06 14:09 ==
PROVIDERS: PCP Family Medicine; Visit Provider Physician Assistant
DX: R10.31 Right lower quadrant pain (principal); D25.9 Leiomyoma of uterus, unspecified
CPT/HCPCS: 76830; 76856

== ENCOUNTER 2021-03-09 12:01 | Emergency (ER) | payer MEDICAID, SELFPAY ==
--- NOTE | 2021-03-09 12:07 | ED.GENADUL_ITS ---
Discharge Plan Disposition Patient Disposition: HOME Condition: Improving Discharge Details Clinical Impression: UTI (urinary tract infection), Enteritis Primary Care Provider: Manoj Dee ED Provider: Karyna Craft Home Meds and New Rx's Prescriptions: New cephalexin 500 mg capsule 500 mg PO BID 7 Days Qty: 14 RF: 0 dicyclomine 20 mg tablet 20 mg PO TID PRN (Reason: pain) Qty: 14 RF: 0 Continued gabapentin 300 MG capsule 300 mg PO TID RF: 0 fluticasone propion-salmeterol [Advair Diskus] 1 EACH blister with device 1 puff Inhalation BID RF: 0 omeprazole 20 MG capsule,delayed release(DR/EC) 20 mg PO DAILY@0730 RF: 0 albuterol sulfate [Proventil HFA] 6.7 GM HFA aerosol inhaler 2 puff Inhalation PRN PRNRF: 0 fluoxetine 20 MG capsule 60 mg PO DAILY RF: 0 amitriptyline 25 mg Tablet 50 mg PO HS RF: 0 amlodipine 2.5 mg Tablet 2.5 mg PO DAILY RF: 0 mirtazapine 30 mg Tablet 30 mg PO HS RF: 0 aspirin 81 mg Tablet,Chewable 81 mg PO DAILY RF: 0 calcium carbonate-vitamin D3 [Calcium 500 + D (D3)] 500 mg(1,250mg) -125 unit Tablet 1 tab PO DAILY RF: 0 sulfamethoxazole-trimethoprim 800-160 mg tablet 1 tab PO BID RF: 0 dicyclomine 20 mg tablet 20 mg PO TID PRN (Reason: pain) Qty: 10 RF: 0 celecoxib [Celebrex] 200 mg capsule 200 mg PO PRN PRNRF: 0 atorvastatin 80 mg Tablet 80 mg PO DAILY RF: 0 nitroglycerin 0.4 mg Tablet, Sublingual 0.4 mg sublingual PRN PRNRF: 0 oxybutynin chloride 5 mg tablet extended release 24hr 5 mg PO HS RF: 0 montelukast 10 mg Tablet 10 mg PO DAILY RF: 0 hydroxyzine HCl 25 mg tablet 25 mg PO DAILY RF: 0 diclofenac sodium 1 % gel 2 g TOPICAL QID RF: 0 Discontinued hyoscyamine 0.15 mg Tablet 0.125 mg PO TID RF: 0 Discharge Instructions Instructions: Urinary Tract Infection in Women (ED), Enteritis (ED) Additional Instructions: Drink plenty of fluids and get plenty of rest. A prescription for the antibiotic Keflex and a medication for abdominal spasms called Bentyl has been sent electronically to your pharmacy. You can stop taking your hyoscyamine if you start taking the medication Bentyl as they have similar indications and actions. Call your primary care doctor tomorrow to schedule a follow-up appointment for reevaluation in the next week. Call the general surgery office to schedule a follow-up appointment for reeva luation and for referral for outpatient endoscopy if your symptoms do not improve or worsen. Return immediately to the emergency department if you develop any worsening or new concerning symptoms. Referrals: Korin Florian DO [OSTEOPATHIC DOCTOR] - Discharge Data Discharge Date/Time-TO BE ENTERED AT DEPARTURE: 03/09/21 18:03 Discharge Physician: Karyna Craft Medical Decision Making 56-year-old female with a history of anxiety, depression, asthma, GERD, IBS, learning disability, appendectomy, and tubal ligation presents for lower abdominal pain for the past 2 months. Vitals within normal limits. She appears comfortable and nontoxic. She has tenderness across her lower abdomen. Differential diagnosis includes small bowel obstruction, UTI, gastroenteritis, colitis, etc. Will place an IV, bolus IV fluids, screening labs, CT abdomen pelvis, Toradol and reassess. Labs and imaging reviewed. Labs unremarkable. Urinalysis notes findings consistent with UTI. CT notes: IMPRESSION: Question of inflammatory process involving left upper quadrant small and/or large bowel. No evidence of obstruction, abscess, or perforation. Appropriate follow-up studies requested. CT findings reviewed with Dr. Florian who evaluated patient at bedside. No acute recommendations at this time but recommend follow-up outpatient for colonscopy. Patient reassessed and her pain is improved. Patient has been taking hy oscyamine from her PCP. Bentyl has similar properties but as she has not had significant relief with hyoscyamine, will DC this and give a prescription for Bentyl in addition to antibiotics for her UTI. She was given 1 dose of Keflex here and prescription sent electronically to her pharmacy. Patient placed on surgery follow-up list. Advised to follow up with the primary care doctor for re-evaluation. Usual and customary return precautions given prior to discharge. Medical Records Medical records reviewed: Yes I reviewed the patient's medical records. Imaging Data Radiologic Study: Radiologist's impression: CT ABDOMEN PELVIS W INDICATION: lower abd pain, nausea, r/o sbo, colitis. COMPARISON: CT CT ABDOMEN PELVIS W from 10/03/2020 TECHNIQUE: FINDINGS: CT examination of the abdomen and pelvis was performed with a bolus infusion of 100 cc of Omnipaque 350. Images obtained through the lung bases are unremarkable. There is a small hiatal hernia. The liver is unremarkable in appearance. Gallbladder and bile ducts are CT normal. Pancreas appears normal. Spleen is unremarkable in appearance. Adrenals appear normal. The kidneys are unremarkable with no evidence of hydronephrosis, nephrol ithiasis, or renal mass.. Urinary bladder unremarkable. Abdominal aorta is of normal diameter and no major vascular abnormality is seen. No abdominal wall hernia. No abdominal or pelvic adenopathy. [employer] structures not well seen due to artifact from left hip prosthesis. Appendix is not specifically visualized but is appendicitis.. There is no specific evidence of diverticulitis. There is a moderate quantity gas and fecal material in the colon. There are few mildly dilated loops small and/or large bowel in the left upper quadrant which may represent an ileus. There appear to be a few mildly enlarged mesenteric lymph nodes in the left upper quadrant as well.There is mild mesenteric edema in this region as well. Possibility of inflammatory process is raised. No evidence of obstruction or perforation. No abscess identified. These findings were not present on prior abdominal CT of October 03. IMPRESSION: Question of inflammatory process involving left upper quadrant small and/or lar ge bowel. No evidence of obstruction, abscess, or perforation. Appropriate follow-up studies requested. Lab Data Lab results reviewed: Yes I reviewed the patient's lab results. Labs: 03/09/21 13:15 Urine - Reflex from Ua Urine Culture - Pending Laboratory Tests Range/Units 03/09/21 03/09/21 03/09/21 12:45 12:45 13:15 WBC (4.4-10.8) 10^3/uL 8.38 RBC (3.93-5.22) 10^6/uL 4.51 Hgb (11.2-15.7) g/dL 13.4 Hct (36.0-46.0) % 40.1 MCV (80-95) fL 88.9 MCH (27.0-33.0) pg 29.7 MCHC (32.0-36.0) % 33.4 RDW (11.7-14.6) % 12.0 Plt Count (130-400) 10^3/uL 273 MPV (8.0-11.0) fL 9.8 Immature Gran % 0.2 Neutrophils % 70.0 Lymphocytes % 22.6 Monocytes % 4.9 Eosinophils % 1.3 Basophils % 1.0 Nucleated RBC % % 0 Absolute Neutrophils (1.2-6.7) 10^3/uL 5.87 Absolute Lymphocytes (1.2-3.4) 10^3/uL 1.89 Absolute Monocytes (0.1-0.8) 10^3/uL 0.41 Absolute Eosinophils (0.0-0.7) 10^3/uL 0.11 Absolute Basophils (0.0-0.2) 10^3/uL 0.08 Sodium (136-145) mmol/L 141 Potassium (3.5-5.1) mmol/L 3.2 L Chloride (98-107) mmol/L 105 Carbon Dioxide (21.0-32.0) mmol/L 24.8 Anion Gap (3-11) mmol/L 11.2 H BUN (7-18) mg/dL 12 Creatinine (0.55-1.02) mg/dL 1.0 Estimated GFR/1.73 m2 (mL/min/1.73m2) 57.35 Glucose (74-106) mg/dL 93 Calcium (8.5-10.1) mg/dL 9.2 Total Bilirubin (0.2-1.0) mg/dL 0.5 AST (15-37) U/L 12 L ALT (14-59) U/L 14 Alkaline Phosphatase (46-116) U/L 79 Total Protein (6.4-8.2) g/dL 7.4 Albumin (3.4-5.0) g/dL 3.8 Lipase (73-393) U/L 81 Urine Color (Yellow) Yellow Urine Clarity (Clear) Sl Cloudy Urine pH (5-8) 8.5 H Ur Specific [place] (1.005-1.025) 1.020 Urine Protein (Negative) mg/dL Negative Urine Ketones (Negative) mg/dL Negative Urine Blood (Negative) Negative Urine Nitrite (Negative) Positive H Urine Bilirubin (Negative) Negative Urine Urobilinogen (Up TO 0.2) EU/dL 1.0 H Ur Leukocyte Esterase (Negative) Moderate H Urine RBC (0-2) HPF 0-2 Urine WBC (0-5) HPF 10-20 H Ur Epithelial Cells (Negative) HPF Few Urine Crystals (Negative) HPF Negative Urine Bacteria (Negative) HPF Many Urine Casts (Negative) LPF Negative Urine Mucus (Negative) Moderate Ur Culture Indicated? Yes Urine Glucose (Negative) mg/dL Negative HPI General Mode of arrival: ambulatory . Date/Time Provider Initiated Documentation: 03/09/21 12:06 . Limitations to Documentation: no limitations . Information obtained by: patient . HPI Narrative: Patient is a 56-year-old female with a history of anxiety, depression, GERD, IBS, asthma, learning disability, appendectomy, section and tubal ligation presents for lower abdominal pain for the past 2 months. She states she was seen in the [facility] last month for the same complaint and had an evaluation in the emergency department with a CAT scan which noted a mobile cecum and she was referred to her PCP who started her on hyoscyamine. She states she took her last dose this morning with minimal relief. She states her pain is intermittent, aching, sharp and located in the lower abdomen with radiation around to both sides or back. She admits to occasional nausea but denies any fever, vomiting, urinary symptoms, diarrhea. Related Data Home Medications Medication Instructions Recorded Confirmed albuterol sulfate [Proventil HFA] 2 puff INHALATION PRN PRN 09/26/12 03/09/21 fluoxetine 60 mg PO DAILY 09/26/12 10/03/20 fluticasone propion-salmeterol 1 puff INHALATION BID 09/26/12 03/09/21 [Advair Diskus] omeprazole 20 mg PO DAILY@0730 09/26/12 03/09/21 gabapentin 300 mg PO TID tab-cap NS 08/04/15 03/09/21 amitriptyline 50 mg PO HS 05/13/18 03/09/21 amlodipine 2.5 mg PO DAILY 05/13/18 03/09/21 aspirin 81 mg PO DAILY 05/13/18 03/09/21 calcium carbonate-vitamin D3 1 tab PO DAILY 05/13/18 03/09/21 [Calcium 500 + D (D3)] mirtazapine 30 mg PO HS 05/13/18 10/03/20 dicyclomine 20 mg PO TID PRN #10 tab 10/03/20 sulfamethoxazole-trimethoprim 1 tab PO BID 10/03/20 03/09/21 atorvastatin 80 mg PO DAILY 03/09/21 03/09/21 celecoxib [Celebrex] 200 mg PO PRN PRN 03/09/21 03/09/21 cephalexin 500 mg PO BID 7 Days #14 cap 03/09/21 diclofenac sodium 2 g TOPICAL QID 03/09/21 03/09/21 dicyclomine 20 mg PO TID PRN #14 tab 03/09/21 hydroxyzine HCl 25 mg PO DAILY 03/09/21 03/09/21 montelukast 10 mg PO DAILY 03/09/21 03/09/21 nitroglycerin 0.4 mg SUBLINGUAL PRN PRN 03/09/21 03/09/21 oxybutynin chloride 5 mg PO HS 03/09/21 03/09/21 Previous Rx's Medication Instructions Recorded dicyclomine 20 mg PO TID PRN #10 tab 10/03/20 cephalexin 500 mg PO BID 7 Days #14 cap 03/09/21 dicyclomine 20 mg PO TID PRN #14 tab 03/09/21 Allergies Allergy/AdvReac Type Severity Reaction Status Date / Time No Known Allergies Allergy Unverified 03/09/21 12:36 General NIRU: 3 Review of Systems All systems reviewed & are unremarkable except as noted in HPI and below Constitutional Constitutional: Reports as per HPI, Denies chills and Denies fever(s) Eyes Eyes: Denies blurry vision ENT Ears, Nose, Mouth, and Throat: Denies dizziness, Denies sore throat and Denies throat swelling Cardiovascular Cardiovascular: Denies chest pain and Denies dyspnea Respiratory Respiratory: Denies cough and Denies dyspnea Gastrointestinal Gastrointestinal: Reports abdominal pain, Denies diarrhea, Reports nausea and Denies vomiting Genitourinary Genitourinary: Denies hematuria and Denies dysuria Musculoskeletal Musculoskeletal: Denies back pain and Denies numbness Integumentary/Breasts Skin/Breast: Denies lesions and Denies rash Neurologic Neurologic: Denies dizziness, Denies localized weakness and Denies numbness Allergic/Immunologic Allergic/Immunologic: Denies throat swelling [facility] Medical History (Updated 03/09/21 @ 17:19 by Karyna Craft DO) Abnormal finding on EKG had normal cath in past. Saw Cardiology resently and was cleared for surgery Anxiety Asthma Candidiasis of skin Depression GERD (gastroesophageal reflux disease) Hip pain IBS (irritable bowel syndrome) Learning disability Surgical History Appendectomy Arthroplasty of knee left cardiac cath section Laparoscopy, diagnostic with drainage of ovarian cyst Ligation of fallopian tube Replacement of total knee joint right Family History Other Diabetes Essential hypertension Hyperlipidemia Social History Smoking/Tobacco Use Status: Never Smoking risk assessment performed?: Yes Alcohol Intake: never Drug use: Never Substance use type: does not use Do you feel safe at home: Yes Do you feel safe in your relationship?: Yes Exam Const General: cooperative and no acute distress HENMT Head: normal to inspection Face and sinus: normal facial exam Eyes General: appearance normal, both eyes and all related structures EOM: EOM intact bilaterally Neck Neck: normal visual inspection and No submandibular swelling Lymphatic: no lymphadenopathy noted Chest Chest: normal inspection of the chest and no tenderness Resp Effort & Inspection: normal respiratory effort and able to speak in complete sentences Auscultation: clear to auscultation bilaterally Cardio Rate: regular rate Rhythm: regular rhythm GI Inspection: normal to inspection Palpation: soft, not firm, not rigid and tender in the LLQ, in the RLQ and suprapubicly Auscultation: normal bowel sounds and hypoactive bowel sounds Skin General skin exam: no rashes or lesions noted Neuro General: patient alert, patient awake and patient oriented x3 Cognition: normal cognition Speech: speech normal Motor: muscle tone normal throughout Sensory Exam: no sensory deficits noted Extrem General: normal to inspection, full ROM, capillary refill normal, no calf tenderness bilaterally and no edema Psych Appearance: grossly normal Mental Status: mental status grossly normal Speech and Movement: speech and movement normal Affect: normal affect
[2021-03-09 12:32] VITALS: BP 114/74; PULSE 84; RESP 16; TEMP 36.6; O2SAT 99
[2021-03-09 12:58] LABS: Abs Immature Grans 0.02 10^3/uL (0.0-0.06); Absolute Basophil Count 0.08 10^3/uL (0.0-0.2); Absolute Eosinophil Count 0.11 10^3/uL (0.0-0.7); Absolute Lymphocyte Count 1.89 10^3/uL (1.2-3.4); Absolute Monocyte Count 0.41 10^3/uL (0.1-0.8); Absolute Neutrophil Count 5.87 10^3/uL (1.2-6.7); Eosinophils % 1.3; HCT 40.1 % (36.0-46.0); HGB 13.4 g/dL (11.2-15.7); Immature Grans % 0.2; Lymphocytes % 22.6; MCH 29.7 pg (27.0-33.0); MCHC 33.4 % (32.0-36.0); MCV 88.9 fL (80-95); MPV 9.8 fL (8.0-11.0); Monocytes % 4.9; Nucleated RBC 0 %; Platelet Count 273 10^3/uL (130-400); RBC 4.51 10^6/uL (3.93-5.22); RDW-SD 38.9 fL; WBC 8.38 10^3/uL (4.4-10.8)
[2021-03-09 13:14] LABS: ALT 14 U/L (14-59); AST 12 U/L (15-37); Albumin 3.8 g/dL (3.4-5.0); Alkaline Phosphatase 79 U/L (46-116); Anion Gap 11.2 mmol/L (3-11); BUN 12 mg/dL (7-18); Bilirubin, Total 0.5 mg/dL (0.2-1.0); CO2 24.8 mmol/L (21.0-32.0); Calcium 9.2 mg/dL (8.5-10.1); Chloride 105 mmol/L (98-107); Estimated GFR 57.35 (mL/min/1.73m2); Glucose 93 mg/dL (74-106); Lipase 81 U/L (73-393); Potassium 3.2 mmol/L (3.5-5.1); Sodium 141 mmol/L (136-145); Total Protein 7.4 g/dL (6.4-8.2)
--- NOTE | 2021-03-09 13:15 | DI.CT_ITS ---
Exam(s) CT ABDOMEN PELVIS W EXAM: CT ABDOMEN PELVIS W INDICATION: lower abd pain, nausea, r/o sbo, colitis. COMPARISON: CT CT ABDOMEN PELVIS W from 10/03/2020 TECHNIQUE: FINDINGS: CT examination of the abdomen and pelvis was performed with a bolus infusion of 100 cc of Omnipaque 3 50. Images obtained through the lung bases are unremarkable. There is a small hiatal hernia. The liver is unremarkable in appearance. Gallbladder and bile ducts are CT normal. Pancreas appears normal. Spleen is unremarkable in appearance. Adrenals appear normal. The kidneys are unremarkable with no evidence of hydronephrosis, nephrolithiasis, or renal mass.. Ur inary bladder unremarkable. Abdominal aorta is of normal diameter and no major vascular abnormality is seen. No abdominal wall hernia. No abdominal or pelvic adenopathy. [employer]ATING [employer] structures not well seen due to artifact from left hip prosthesis. Appendix is not specifically visualized but is appendicitis.. There is no specific evidence of diver ticulitis. There is a moderate quantity gas and fecal material in the colon. There are few mildly dilated loops small and/or large bowel in the left upper quadrant which may repr esent an ileus. There appear to be a few mildly enlarged mesenteric lymph nodes in the left upper qu adrant as well.There is mild mesenteric edema in this region as well. Possibility of inflammatory pro cess is raised. No evidence of obstruction or perforation. No abscess identified. These findings wer e not present on prior abdominal CT of October 03. IMPRESSION: Question of inflammatory process involving left upper quadrant small and/or large bowel. No evidence of obstruction, abscess, or perforation. Appropriate follow-up studies requested. RADIATION DOSE DELIVERED: 1,021.63mGy.cm Total DLP 1,021.63mGy.cm Total DLP 18.62mGy CTDIvol RADIATION OPTIMIZATION: All CT scans at this facility use at least one of these dose optimization te chniques: automated exposure control; mA and/or kV adjustment per patient size (includes targeted exa ms where dose is matched to clinical indication); or iterative reconstruction.
[2021-03-09 13:20] LABS: Bilirubin Negative (Negative); Blood Negative (Negative); Clarity Sl Cloudy (Clear); Glucose Negative (Negative); Ketones Negative (Negative); Leukocyte Esterase Moderate (Negative); Nitrite Positive (Negative); pH 8.5 (5-8)
[2021-03-09 13:27] LABS: Epithelial Cells Few HPF (Negative); RBC 0-2 HPF (0-2)
[2021-03-09 13:28] LABS: Bacteria Many HPF (Negative); C & S Indicated? Yes; Casts Negative LPF (Negative); Crystals Negative HPF (Negative); Mucus Moderate (Negative)
[2021-03-09] MEDS: Normal Saline 1,000 ML 1000 ML IV (13:46)
[2021-03-09] MEDS: Ketorolac 30 MG/ML VIAL IVP (13:46)
[2021-03-09] MEDS: Ondansetron 4 MG/2 ML VIAL IVP (13:46)
[2021-03-09] MEDS: Potassium Chloride 20 MEQ TABCR 40 MEQ PO (13:47)
[2021-03-09] MEDS: Normal Saline - Diluent 50 ML VIAL IV (14:09)
[2021-03-09] MEDS: Omnipaque 350 MG/ML 100 ML BTL IJ (14:10)
[2021-03-09 15:22] VITALS: BP 114/71; PULSE 77; TEMP 36.6; O2SAT 97
[2021-03-09 17:50] VITALS: BP 114/71; PULSE 77; RESP 16; TEMP 36.6; O2SAT 97
[2021-03-09] MEDS: Cephalexin 500 MG CAP PO (17:50)
[2021-03-09] MEDS: Dicyclomine 20 MG TAB PO (17:50)
--- NOTE | 2021-03-10 10:27 | NUR.NOTE ---
Nursing Note: Referral [facility] for follow up for colonoscopy within 2 weeks. Elaine Kirby
== END 2021-03-09 18:03 | disposition home or self-care (01) ==
PROVIDERS: Emergency Provider Physician Assistant; PCP Nurse Practitioner Acute Care
DX: N39.0 Urinary tract infection, site not specified (principal); B96.20 Unspecified Escherichia coli [E. coli] as the cause of diseases classified elsewhere; K52.9 Noninfective gastroenteritis and colitis, unspecified
CPT/HCPCS: 36415; 80053; 83690; 87077; 96361; 96374; 96375; 99285; 74177; 81003; 81015; 85025; 87086; 87186; 99284; J1885; J2405; J3490

== ENCOUNTER 2021-03-17 02:32 | Outpatient (CLI) | payer MEDICAID, SELFPAY ==
[2021-03-17 10:10] LABS: Source Nasal/Nares
[2021-03-17 19:29] LABS: COVID-19 PCR Negative (Negative)
== END 2021-03-17 02:33 | disposition home or self-care (01) ==
LOC: LBO 02:32
PROVIDERS: PCP Nurse Practitioner Acute Care; Visit Provider Surgery
DX: Z20.822 Contact with and (suspected) exposure to COVID-19 (principal); Z01.818 Encounter for other preprocedural examination
CPT/HCPCS: 87635

== ENCOUNTER 2021-03-19 12:07 | Day surgery (SDC) | payer MEDICAID, SELFPAY ==
--- NOTE | 2021-03-18 23:29 | COLE_ITS ---
Colonoscopy Report Date of procedure: 03/19/21 Pre-op diagnosis general: abnl CT Post-op diagnosis procedure note: other (mild chronic inflammation in sigmoid/rectum) Surgeon: Korin Florian Anesthesia Type: General:No Airway Estimated blood loss (mL): 1 Pathology: other Complications: None Disposition: same day Prep: Miralax/Dulcolax Retraction Time: 9 Procedure Description: After informed consent was obtained the patient was taken to the procedure room and placed in a left decubitous position. Monitors were applied and a time out was done. The patients name, date of , procedure, allergies to medications and metal in their body was reviewed. The patient was then sedated. Once sedated and comfortable a rectal exam was done. External exam was normal. Internal exam revealed a normal sphincter tone and no palpable masses. The scope was then introduced and retrofelexed. no internal hemorrhoids were identified. The scope was then advanced to the cecum w/out difficulty. The TI and appendiceal orifice were identified. The prep was good. The scope was then slowly retracted over 9 minutes back into the rectum. There are no polyps, AVMs, or diverticula visualized today. The scope was removed and the patient was woken up and taken back to Same day surgery in stable condition. no diverticula. no polyps. mild chronic inflammation in left colon. Bx taken - cecum/rectum/30cm. The patient tolerated the procedure well and there were no immediate complications. Follow up: The patient should follow up in [] years unless they develop changes in bowel habits or other new gastrointestinal complaints.
--- NOTE | 2021-03-18 23:30 | PDOC.DSDIS_ITS ---
Discharge Plan Disposition Patient Disposition: HOME Condition: Good Discharge Details Reason For Visit: colon scope Attending Provider: Korin Florian Primary Care Provider: Manoj Dee Home Meds and New Rx's Prescriptions: Continued bisacodyl [Dulcolax (bisacodyl)] 5 mg tablet,delayed release (DR/EC) 5 mg PO ONCE Qty: 4 RF: 0 gabapentin 300 MG capsule 300 mg PO TID RF: 0 omeprazole 20 MG capsule,delayed release(DR/EC) 20 mg PO DAILY@0730 RF: 0 albuterol sulfate [Proventil HFA] 6.7 GM HFA aerosol inhaler 2 puff Inhalation PRN PRNRF: 0 fluoxetine 20 mg capsule 40 mg PO DAILY RF: 0 amitriptyline 25 mg Tablet 50 mg PO HS RF: 0 amlodipine 2.5 mg Tablet 2.5 mg PO DAILY RF: 0 aspirin 81 mg Tablet,Chewable 81 mg PO DAILY RF: 0 calcium carbonate-vitamin D3 [Calcium 500 + D (D3)] 500 mg(1,250mg) -125 unit Tablet 1 tab PO DAILY RF: 0 celecoxib [Celebrex] 200 mg capsule 200 mg PO PRN PRNRF: 0 atorvastatin 80 mg Tablet 80 mg PO DAILY RF: 0 nitroglycerin 0.4 mg Tablet, Sublingual 0.4 mg sublingual PRN PRNRF: 0 oxybutynin chloride 5 mg tablet extended release 24hr 5 mg PO HS RF: 0 montelukast 10 mg Tablet 10 mg PO DAILY RF: 0 hydroxyzine HCl 25 mg tablet 25 mg PO DAILY RF: 0 diclofenac sodium 1 % gel 2 g TOPICAL QID RF: 0 dicyclomine 20 mg tablet 20 mg PO TID PRN (Reason: pain) Qty: 14 RF: 0 Discontinued polyethylene glycol 3350 17 gram/dose powder 238 g PO ONCE Qty: 238 RF: 0 Discharge Instructions Additional Instructions: DSU Colonoscopy Post- Op Instructions Instructions for Everyone who is given Anesthesia: For your safety, please do the following for the next twenty-four (24) hours: *Do Not operate a motor vehicle (car, truck, motorcycle, etc.) *Do Not drink alcoholic beverages or use any recreational drugs for the first 24 hours or while taking pain medications. The medications in your body may have a reaction that can be dangerous. *Do Not make any important decisions or sign any important papers. Findings: mild chronic inflammation of left colon Follow up: f/u in office in 2 wks time 1. No lifting over 20 pounds or strenuous activity for the first 24 hours after your procedure. After 24 hours there are no restrictions on your activity but you may feel fatigued for a few days. 2. After you arrive home you may have a light meal and return to your normal diet as you can tolerate it without feeling sick to your stomach. 3. You may have a bloated, gaseous feeling in your belly (abdomen) after a colonoscopy. Passing gas and belching will help. Walking or lying down on your left side with your knees flexed may relieve the discomfort. Call the office at [phone] (Office) or [phone] (Hospital) right away if you notice any of the following: a.Vomiting of blood or ?coffee ground stools?. b.Rectal bleeding 1Tbsp, blood clots or continuous bleeding. c.Severe belly (abdominal) pain. d.A hard distended belly (abdomen) and an inability to pass gas. 4. Please don?t expect to have a normal BM (bowel movement) for 2-3 days after your procedure. 5. If there are questions regarding the findings of your procedure, please contact your doctor 6. If you are unable to contact your doctor with a problem, contact the hospital at [phone]. 7. Continue all your regular medications unless directed otherwise. I understand the above instructions and have no questions. Signature of Patient or Adult Escort Name of Responsible Adult Escort Signature of Nurse Date/Time Activity:: see above Diet:: see above Discharge Orders Discharge Orders: Discharge Order (Routine); Ordered 03/18/21 Ordered By: Korin Florian DS: Diagnosis Discharge Diagnosis (1) Abdominal pain: Status: Acute (2) Enteritis: Status: Acute (3) Abnormal CT of the abdomen: Status: Acute (4) IBS (irritable bowel syndrome): Status: None (5) GERD (gastroesophageal reflux disease): Status: None
--- NOTE | 2021-03-19 07:04 | ANES.PREOP_ITS ---
General Info Date of Service Date Performed: 03/19/21 Height: 5 ft 8 in Weight: 83.574 kg Body Mass Index (BMI): 28.0 Surgical Procedure: Operation Date: 03/19/21 12:35 Proposed Procedures Side Surgeon jay Florian, DO Meds Allergies and Home Medications Allergies Allergy/AdvReac Type Severity Reaction Status Date / Time No Known Allergies Allergy Unverified 03/19/21 12:22 Home Medication Medication Instructions Recorded albuterol sulfate [Proventil HFA] 2 puff INHALATION PRN PRN 09/26/12 omeprazole 20 mg PO DAILY@0730 09/26/12 gabapentin 300 mg PO TID tab-cap NS 08/04/15 amitriptyline 50 mg PO HS 05/13/18 amlodipine 2.5 mg PO DAILY 05/13/18 aspirin 81 mg PO DAILY 05/13/18 calcium carbonate-vitamin D3 1 tab PO DAILY 05/13/18 [Calcium 500 + D (D3)] atorvastatin 80 mg PO DAILY 03/09/21 celecoxib [Celebrex] 200 mg PO PRN PRN 03/09/21 diclofenac sodium 2 g TOPICAL QID 03/09/21 dicyclomine 20 mg PO TID PRN #14 tab 03/09/21 hydroxyzine HCl 25 mg PO DAILY 03/09/21 montelukast 10 mg PO DAILY 03/09/21 nitroglycerin 0.4 mg SUBLINGUAL PRN PRN 03/09/21 oxybutynin chloride 5 mg PO HS 03/09/21 bisacodyl 5 mg tablet,delayed 5 mg PO ONCE #4 tab 03/11/21 release fluoxetine 20 mg capsule 40 mg PO DAILY cap 03/11/21 polyethylene glycol 3350 17 238 g PO ONCE #238 g 03/11/21 gram/dose oral powder Current Visit Medications: Current Medications Generic Name Dose Route Start Last Admin Trade Name Freq PRN Reason Stop Dose Admin Hyoscyamine Sulfate 0.125 mg 03/18/21 23:30 Hyoscyamine 0.125 Mg Sl/Oral/Chew SL DIRECTED PRN Ringer's Solution 1,000 mls @ 80 mls/hr 03/19/21 06:00 IV 04/06/21 23:59 INFUSION ROMY IV Miscellaneous Supplies 1 each 03/19/21 06:00 Iv Access IV 04/06/21 23:59 DIRECTED ROMY Sodium Chloride 0 ml 03/19/21 06:00 Normal Saline Flush 10 Ml Syr IV 04/06/21 23:59 PRN PRN Sodium Chloride 0 ml 03/19/21 06:00 Normal Saline 10 Ml Vial IJ 04/06/21 23:59 DIRECTED PRN Sterile Water 0 ml 03/19/21 06:00 Water,Injection,Sterile 10 Ml Vial IJ 04/06/21 23:59 DIRECTED PRN PFSH Active Problems Active Problems: Problem Status Onset Code Abnormal CT of the abdomen R93.5 Chest pain R07.9 Abdominal pain R10.9 UTI (urinary tract infection) N39.0 Enteritis K52.9 Edentulous K08.109 Hearing deficit H91.90 Asthma J45.909 Acute constipation K59.00 Anxiety Medical History Medical History Abnormal finding on EKG had normal cath in past. Saw Cardiology resently and was cleared for surgery Anxiety Asthma Candidiasis of skin Depression GERD (gastroesophageal reflux disease) Hip pain IBS (irritable bowel syndrome) Learning disability Surgical History Surgical History Appendectomy Arthroplasty of knee left cardiac cath pt. states 4-5 days, and f/u with PCP section History of hip replacement Laparoscopy, diagnostic with drainage of ovarian cyst Ligation of fallopian tube Replacement of total knee joint right Tobacco Smoking/Tobacco Use Status: Never Alcohol Alcohol Intake: never Substance Use Substance use: Never Substance use type: does not use Vital Signs and Lab Results Vital Signs Most Recent Vital Signs in EMR: Temp Pulse Resp BP Pulse Ox 36.8 C 74 18 116/72 97 03/19/21 12:35 03/19/21 12:35 03/19/21 12:35 03/19/21 12:35 03/19/21 12:35 Lab Results Blood Type / Crossmatch: No Data to Display Complete Blood Count: White Blood Count 8.38 10^3/uL (4.4-10.8) 03/09/21 12:45 03/09/21 Red Blood Count 4.51 10^6/uL (3.93-5.22) 03/09/21 12:45 03/09/21 Hemoglobin 13.4 g/dL (11.2-15.7) 03/09/21 12:45 03/09/21 Hematocrit 40.1 % (36.0-46.0) 03/09/21 12:45 03/09/21 Platelet Count 273 10^3/uL (130-400) 03/09/21 12:45 03/09/21 Complete Metabolic Panel: Sodium Level 141 mmol/L (136-145) 03/09/21 12:45 03/09/21 Potassium Level 3.2 mmol/L (3.5-5.1) L 03/09/21 12:45 03/09/21 Chloride Level 105 mmol/L (98-107) 03/09/21 12:45 03/09/21 Carbon Dioxide Level 24.8 mmol/L (21.0-32.0) 03/09/21 12:45 03/09/21 Blood Urea Nitrogen 12 mg/dL (7-18) 03/09/21 12:45 03/09/21 Creatinine 1.0 mg/dL (0.55-1.02) 03/09/21 12:45 03/09/21 Estimated GFR/1.73 m2 57.35 (mL/min/1.73m2) 03/09/21 12:45 03/09/21 Calcium Level 9.2 mg/dL (8.5-10.1) 03/09/21 12:45 03/09/21 Albumin 3.8 g/dL (3.4-5.0) 03/09/21 12:45 03/09/21 Glucose Level 93 mg/dL (74-106) 03/09/21 12:45 03/09/21 Liver Function Panel: Alanine Aminotransferase (ALT/SGPT) 14 U/L (14-59) 03/09/21 12:45 03/09/21 Aspartate Amino Transf (AST/SGOT) 12 U/L (15-37) L 03/09/21 12:45 03/09/21 Coagulation Panel: No Data to Display Cardiac Panel: No Data to Display Arterial Blood Gas: No Data to Display Venous Blood Gas: No Data to Display Pancreas Panel: Lipase 81 U/L (73-393) 03/09/21 12:45 03/09/21 Thyroid Panel: No Data to Display Infectious Disease: Coronavirus (COVID-19)(PCR) Negative (Negative) 03/17/21 09:58 03/17/21 Coronavirus 2019 Source Nasal/Nares 03/17/21 09:58 03/17/21 Blood Cultures: No Data to Display Toxicology Panel: No Data to Display Imaging and Studies Imaging and Studies EKG Summary: 08/2020: sinus rhythm, abnormal t. Echocardiogram Summary: 2019: PASP 20 mmhg, LVEF 71%, no hemodynamically s igificant valve dz. Cardiac Catheterization Summary: 2018: normal coronaries. Anesthesia Assessment and Plan Anesthesia History Personal History: No History of Anesthesia Complications Family History: No Family History of Anesthesia Complications Exercise Tolerance Exercise Tolerance: Metabolic Equivalents>4 Cardiac & Pulmonary Exam Cardiac Exam: Normal S1/S2 Heart Sounds Pulmonary Exam: Clear Bilateral Breath Sounds Implantable Cardiac Device Does patient have a Pacemaker or an ICD?: No Airway Exam Known Difficult Airway: No Mallampati Class: 2 Mouth Opening: Narrow (< 3cm) Thyromental Distance: Less than 3 cm Neck Range of Motion: Full ROM Neck Circumference: Normal Teeth Condition: Edentulous ASA Classification ASA Score: ASA 2 Emergency Case?: No NPO Status NPO Status: NPO Clears >2 hours, Solids >8 hours Anesthesia Plan Resuscitation Status: Full Code Anesthesia Technique: General Anesthesia Airway Planned: Natural Airway Monitors Used: Standard Monitors Preoperative Comments:: 56 yo female for colo. Sig PMHx: GERD, Asthma, anxiety,
[2021-03-19 12:35] VITALS: BP 116/72; PULSE 74; RESP 18; TEMP 36.8; O2SAT 97
[2021-03-19 12:50] VITALS: BMI 28.0
[2021-03-19] MEDS: Lactated Ringers 1,000 ML 80 ML IV (13:11)
--- NOTE | 2021-03-19 13:31 | BOWEL_PTH ---
PATIENT: Ana Pollock LOC: [facility] U#:[id number] AGE/SX: 56/F ROOM: RE03/19/[address]: Korin Florian : 1965 BED: DIS: 03/19/2021 SPEC #: [id number] RECD: 03/19/21 18:44 STATUS: CHEN RECherelle #: [id number] CORNELIUS: 03/19/21 13:[address]: Korin Florian DEPT: Surgical Specimen RECD BY: Jada Lacy ENTERED: 03/19/21 18:45 SP TYPE: Bowel OTHR DR: Manoj Dee Tissues: 1 - BIOPSY BOWEL 2 - BIOPSY BOWEL 3 - BIOPSY BOWEL Procedures: GROSS AND MICRO LEVEL 4 Comments: [id number]
[2021-03-19 13:46] VITALS: BP 98/61; PULSE 78; RESP 16; TEMP 36.4; O2SAT 95
--- NOTE | 2021-03-19 14:09 | W.ANESPOSTOP ---
Postoperative Evaluation Date, Time and Location Date Performed: 03/19/21 Time Performed: 14:09 Patient Location: Day Surgery Unit Vital Signs Most Recent Imported Vital Signs: Most Recent Vital Signs Temp Pulse Resp BP Pulse Ox 36.4 C L 78 16 98/61 L 95 03/19/21 13:46 03/19/21 13:46 03/19/21 13:46 03/19/21 13:46 03/19/21 13:46 Pain Score Most Recent Pain Score: Most Recent Pain Score Pain Level 0 03/19/21 13:46 Assessment Mental Status: Awake (Alert & Oriented to Patient Baseline) Airway and Respiratory Function: Patent airway with normal (patient baseline) respiratory exam Cardiovascular Function: Hemodynamically Stable Hydration Status: Adequately Hydrated Nausea & Vomiting: No Nausea or Vomiting Pain: Pt. Denies Any Pain Peripheral Nerve Block: Patient did not receive a nerve block
[2021-03-19 14:16] VITALS: BP 114/89; PULSE 71; RESP 18; TEMP 36.3; O2SAT 98
== END 2021-03-19 14:50 | disposition home or self-care (01) ==
PROVIDERS: PCP Nurse Practitioner Acute Care; Visit Provider Surgery
PROC: 0DJD8ZZ Inspection of Lower Intestinal Tract, Via Natural or Artificial Opening Endoscopic (ICD-10-PCS; CPT 45378; principal; 2021-03-19 12:30)
DX: K58.9 Irritable bowel syndrome, unspecified (principal); K21.9 Gastro-esophageal reflux disease without esophagitis; K63.89 Other specified diseases of intestine
CPT/HCPCS: 45380; 88305

== ENCOUNTER 2021-09-26 15:11 | Emergency (ER) | payer MEDICAID, SELFPAY ==
[2021-09-26] VITALS (41 sets, daily range): BP systolic 94–174; BP diastolic 41–103; PULSE 78–115; RESP 13–28; TEMP 37.3–37.6; O2SAT 93–98
--- NOTE | 2021-09-26 15:00 | RT.EKG_ITS ---
APPROVED REPORT Exam: Resting ECG Reason for Exam: chest pain Patient Location: E HR:95 bpm ECG Measurements Heart Rate 95 AXIS OH 157 P 26 QRSd 86 QRS 24 QT 353 T 63 QTc 445 Conclusion Sinus rhythm...normal P axis Probable left atrial enlargement No ST elevation
--- NOTE | 2021-09-26 15:40 | ED.GENADUL_ITS ---
Discharge Plan Disposition Patient Disposition: HOME Condition: Stable Discharge Details Clinical Impression: Bilateral pneumonia Primary Care Provider: Manoj Dee ED Provider: Emerita Elmore Home Meds and New Rx's Prescriptions: New doxycycline hyclate 100 mg tablet 100 mg PO BID 10 Days Qty: 20 0RF Continued lubiprostone [Amitiza] 8 mcg capsule 8 mcg PO DAILY Qty: 30 6RF omeprazole 20 MG capsule,delayed release(DR/EC) 20 mg PO DAILY@0730 albuterol sulfate [Proventil HFA] 6.7 GM HFA aerosol inhaler 2 puff Inhalation PRN PRN amitriptyline 25 mg Tablet 50 mg PO HS amlodipine 2.5 mg Tablet 2.5 mg PO DAILY aspirin 81 mg Tablet,Chewable 81 mg PO DAILY celecoxib [Celebrex] 200 mg capsule 200 mg PO PRN PRN Label Comments: TAKE 1 TO 2 CAPSULES BY MOUTH AT BEDTIME NEEDED FOR PAIN atorvastatin 80 mg Tablet 80 mg PO DAILY oxybutynin chloride 5 mg tablet extended release 24hr 5 mg PO HS No Action bisacodyl [Dulcolax (bisacodyl)] 5 mg tablet,delayed release (DR/EC) 5 mg PO ONCE Qty: 4 0RF Rx Instructions: take per colonoscopy instructions cyclobenzaprine 5 mg tablet 5 mg PO TID PRN gabapentin 300 MG capsule 300 mg PO TID fluoxetine 20 mg capsule 40 mg PO DAILY calcium carbonate-vitamin D3 [Calcium 500 + D (D3)] 500 mg(1,250mg) -125 unit Tablet 1 tab PO DAILY nitroglycerin 0.4 mg Tablet, Sublingual 0.4 mg sublingual PRN PRN montelukast 10 mg Tablet 10 mg PO DAILY Label Comments: does not take hydroxyzine HCl 25 mg tablet 25 mg PO DAILY diclofenac sodium 1 % gel 2 g TOPICAL QID Label Comments: APPLY EXTERNALLY TO THE AFFECTED AREA FOUR TIMES DAILY dicyclomine 20 mg tablet 20 mg PO TID PRN (Reason: pain) Qty: 14 0RF Discharge Instructions Instructions: Community Acquired Pneumonia (ED) Additional Instructions: Take the antibiotics twice daily with food as directed. Use the albuterol inhaler 1 to 2 puffs every 4-6 hours as needed for wheezing. Follow up with primary care provider in 3-5 days. Return to ED sooner if any worsening or concerns. Increase oral fluids. The COVID swab was negative today. Please take Tylenol or Ibuprofen with food every 4-6 hours as needed for pain and swelling. Referrals: Manoj Dee [Primary Care Provider] - 5 days Medical Decision Making 56-year-old female presents to the ER with chief complaint of midsternal chest pain which began last night. She reports that yesterday at work she was exposed to some propane for short period of time. In last night she began coughing and had onset of chest pain. She rates it an 8 out of 10 and constant. Denies any radiation. She reports nausea no vomiting no diarrhea. Denies any fever or chills. She is vaccinated for COVID. She denies any productive cough. She does have a congested cough noted on exam with some rales in the lower lobes. No significant swelling in her lower extremities. She does have a past medical history of asthma, GERD, IBS and anxiety. She does take a daily baby aspirin which she did take this morning. She reports a couple years ago she had some chest pain and a stress test which she reports all the results were normal from that. Labs ordered including CBC, CMP, serial troponins and proBNP. Chest x-ray. COVID swab. CBC shows slightly elevated white blood cell count at 13.93, potassium 3.3, proBNP is 441 COVID is pending at this time. Chest x-ray shows bilateral patchy infiltrate at the bases. Patient given doxycycline here in the department. Solu-Medrol 125 and Zofran was given. Second troponin within normal limits. Patient discharged home with strict return instructions and follow-up care she verbalizes understanding. This text was generated using [employer] system, please disregard any oddities of phrase or misspellings. Imaging Data Radiologic Study: Imaging: X-Ray Radiologist's impression: Imaging protocol: XR of the chest. Views: 1 view. COMPARISON: CR XR PORTABLE CHEST AP 30/08/2020 09:26 FINDINGS: Tubes, catheters and devices: EKG wires overlie the chest. Lungs: Decreased lung volumes. Patchy infiltrate at the lung bases. Pleural spaces: Unremarkable. No pleural effusion. No pneumothorax. Heart/Mediastinum: Stable cardiomediastinal silhouette. Bones/joints: Unremarkable for patient's age. IMPRESSION: Bilateral patchy infiltrates. Thank you for allowing us to participate in the care of your patient. Dictated and Authenticated by: Jaja Santos MD [facility] General Mode of arrival: ambulatory . Date/Time Provider Initiated Documentation: 09/26/21 15:12 . Limitations to Documentation: no limitations . Information obtained by: patient, RN notes reviewed and old records reviewed . HPI Narrative: 56-year-old female presents to the ER with chief complaint of midsternal chest pain which began last night. She reports that yesterday at work she was exposed to some propane for short period of time. In last night she began coughing and had onset of chest pain. She rates it an 8 out of 10 and constant. Denies any radiation. She reports nausea no vomiting no diarrhea. Denies any fever or chi lls. She is vaccinated for COVID. She denies any productive cough. She does have a congested cough noted on exam with some rales in the lower lobes. No significant swelling in her lower extremities. She does have a past medical history of asthma, GERD, IBS and anxiety. She does take a daily baby aspirin which she did take this morning. She reports a couple years ago she had some chest pain and a stress test which she reports all the results were normal from that. Related Data Home Medications Medication Instructions Recorded Confirmed albuterol sulfate 90 mcg/actuation 2 puff inhalation PRN PRN 09/26/12 04/09/21 aerosol inhaler (Proventil HFA) omeprazole 20 mg capsule,delayed 20 mg PO DAILY@0730 09/26/12 09/26/21 release gabapentin 300 mg capsule 300 mg PO TID 08/04/15 04/09/21 amitriptyline 25 mg tablet 50 mg PO HS 05/13/18 04/09/21 amlodipine 2.5 mg tablet 2.5 mg PO DAILY 05/13/18 04/09/21 aspirin 81 mg chewable tablet 81 mg PO DAILY 05/13/18 09/26/21 calcium carbonate 500 mg-vitamin 1 tab PO DAILY 05/13/18 09/26/21 D3 3.125 mcg (125 unit) tablet (Calcium) atorvastatin 80 mg tablet 80 mg PO DAILY 03/09/21 04/09/21 celecoxib 200 mg capsule (Celebrex) 200 mg PO PRN PRN 03/09/21 09/26/21 diclofenac sodium 1 % topical gel 2 g topical QID 03/09/21 09/26/21 dicyclomine 20 mg tablet 20 mg PO TID PRN pain #14 tabs 03/09/21 09/26/21 hydroxyzine HCl 25 mg tablet 25 mg PO DAILY 03/09/21 04/09/21 montelukast 10 mg tablet 10 mg PO DAILY 03/09/21 04/09/21 nitroglycerin 0.4 mg sublingual 0.4 mg sublingual PRN PRN 03/09/21 09/26/21 tablet oxybutynin chloride 5 mg 5 mg PO HS 03/09/21 09/26/21 tablet,extended release 24 hr bisacodyl 5 mg tablet,delayed 5 mg PO ONCE colonscopy bowel prep 03/11/21 09/26/21 release (Dulcolax (bisacodyl)) #4 tabs fluoxetine 20 mg capsule 40 mg PO DAILY 03/11/21 09/26/21 lubiprostone 8 mcg capsule 8 mcg PO DAILY #30 caps 03/24/21 09/26/21 (Amitiza) cyclobenzaprine 5 mg tablet 5 mg PO TID PRN 04/05/21 09/26/21 doxycycline hyclate 100 mg tablet 100 mg PO BID 10 days #20 tabs 09/26/21 Previous Rx's Medication Instructions Recorded dicyclomine 20 mg tablet 20 mg PO TID PRN pain #14 tabs 03/09/21 bisacodyl 5 mg tablet,delayed 5 mg PO ONCE colonscopy bowel prep 03/11/21 release (Dulcolax (bisacodyl)) #4 tabs lubiprostone 8 mcg capsule 8 mcg PO DAILY #30 caps 03/24/21 (Amitiza) doxycycline hyclate 100 mg tablet 100 mg PO BID 10 days #20 tabs 09/26/21 Allergies Allergy/AdvReac Type Severity Reaction Status Date / Time No Known Allergies Allergy Unverified 09/26/21 16:06 General Stated Complaint: Chest Pain NIRU: 2 Review of Systems All systems reviewed & are unremarkable except as noted in HPI and below Cardiovascular Cardiovascular: Reports as per HPI, Reports chest pain, Denies leg edema and Reports dyspnea Respiratory Respiratory: Reports cough and Reports dyspnea Gastrointestinal Gastrointestinal: Denies diarrhea, Reports nausea and Denies vomiting Genitourinary Genitourinary: Denies dysuria PFSH All Active Problems (Updated 09/26/21 @ 17:07 by Emerita Elmore) Bilateral pneumonia (Acute) Chest pain (Acute) UTI (urinary tract infection) (Acute) Edentulous (Acute) Hearing deficit (Acute) Asthma (Chronic) Anxiety (Chronic) Medical History Abnormal finding on EKG had normal cath in past. Saw Cardiology resently and was cleared for surgery Asthma Candidiasis of skin Depression Hip pain Normal colonoscopy (~03/19/21) Surgical History Appendectomy Arthroplasty of knee left cardiac cath pt. states 4-5 days, and f/u with PCP section History of colonoscopy (~03/19/21) stoiber History of hip replacement Laparoscopy, diagnostic with drainage of ovarian cyst Ligation of fallopian tube Replacement of total knee joint right Family History Other Diabetes Essential hypertension Hyperlipidemia Social History Smoking/Tobacco Use Status: Never Smoking risk assessment performed?: Yes Alcohol Intake: never Drug use: Never Substance use type: does not use Do you feel safe at home: Yes Do you feel safe in your relationship?: Yes Exam Narrative Exam Narrative: Constitutional: Alert and oriented x3. Appears stated age. Normal body habitus. Head: Normocephalic, no trauma. Eyes: Pupils PERRL, Red reflex noted, EOM's intact. Eyelids symmetrical without lesions, discharge, or swelling. ENT: Bilateral TM's WNL, External ear normal to inspection, no mastoid TTP, swelling, or erythema, Nasal turbinates WNL, no nasal discharge. Normal dentition, Posterior pharynx WNL, no exudate. Chest: RRR, Normal S1, S2, distal pulses intact. Resp: Rales to auscultation bilaterally in the lower lobes. Abdomen: Soft, non-distended, Normoactive bowel sounds all 4 quads. Musculoskeletal: Normal gait, 5/5 strength to all four extremities. Skin: No suspicious rashes or lesions. Capillary refill less than 2 sec. Neurologic: Cranial nerves II-XII intact. Alert and oriented x 3. Motor: No deficits noted. Sensory: Intact bilaterally all 4 extremities. Reflexes: DTR's intact bilaterally.. Hematologic/Lymphatic: No ecchymosis, no lymphadenopathy. Course Vital Signs Vital signs: Vital Signs Temperature 37.6 C H 09/26/21 15:15 Pulse 108 H 09/26/21 15:15 Respiratory Rate 26 H 09/26/21 15:15 Blood Pressure 146/80 H 09/26/21 15:15 Pulse Oximetry 96 09/26/21 15:15 Temperature 37.6 C H 09/26/21 15:15 Temperature Source Temporal Artery Scan 09/26/21 15:15 Pulse 108 H 09/26/21 15:15 Respiratory Rate 26 H 09/26/21 15:15 Blood Pressure 146/80 H 09/26/21 15:15 Pulse Oximetry 96 09/26/21 15:15 Oxygen Delivery Method Room Air 09/26/21 15:15 Oxygen Flow Rate 0 09/26/21 15:15 Pain Level 8 09/26/21 15:15
[2021-09-26 15:47] LABS: Abs Immature Grans 0.05 10^3/uL (0.0-0.06); Absolute Basophil Count 0.07 10^3/uL (0.0-0.2); Absolute Monocyte Count 0.45 10^3/uL (0.1-0.8); Absolute Neutrophil Count 11.46 10^3/uL (1.2-6.7); Basophils % 0.5; Eosinophils % 0.7; HGB 12.3 g/dL (11.2-15.7); Immature Grans % 0.4; Lymphocytes % 12.9; MCH 30.2 pg (27.0-33.0); MCHC 33.2 % (32.0-36.0); MCV 91 fL (80-95); MPV 9.5 fL (8.0-11.0); Monocytes % 3.2; Neutrophils % 82.3; Platelet Count 261 10^3/uL (130-400); RBC 4.07 10^6/uL (3.93-5.22); RDW 12.7 % (11.7-14.6); RDW-SD 41.5 fL; WBC 13.93 10^3/uL (4.4-10.8)
[2021-09-26 16:05] LABS: ALT 17 U/L (14-59); AST 7 U/L (15-37); Albumin 3.7 g/dL (3.4-5.0); Alkaline Phosphatase 85 U/L (46-116); Anion Gap 7.5 mmol/L (3-11); BUN 13 mg/dL (7-18); Bilirubin, Total 0.5 mg/dL (0.2-1.0); CO2 27.5 mmol/L (21.0-32.0); Calcium 8.7 mg/dL (8.5-10.1); Chloride 105 mmol/L (98-107); Estimated GFR 57.35 (mL/min/1.73m2); Glucose 96 mg/dL (74-106); Potassium 3.3 mmol/L (3.5-5.1); Sodium 140 mmol/L (136-145); Troponin I < 50 ng/L (<or=60)
[2021-09-26 16:12] LABS: Source Nasal/Nares
--- NOTE | 2021-09-26 16:15 | DI.RAD_ITS ---
Exam(s) XR PORTABLE CHEST AP EXAM: XR PORTABLE CHEST AP CLINICAL HISTORY: chest tightness TECHNIQUE: 2D digital imaging was performed. COMPARISON: CR,XR XR PORTABLE CHEST AP from 08/30/2020 FINDINGS: LUNGS: Mild bibasilar infiltrates, left greater than right. Lungs poorly inflated. No pleural abnor mality seen. HEART: Normal. AORTA: Normal. BONES: Unremarkable for age. Soft tissues: Unremarkable. IMPRESSION: Mild basilar infiltrates, left greater than right. DATA REPOSITORY: RADIATION DOSE DELIVERED:
[2021-09-26 16:32] LABS: NT-proBNP 441 pg/mL (<300)
--- NOTE | 2021-09-26 16:54 | DI.VRAD_ITS ---
PROCEDURE INFORMATION: Exam: XR Chest Exam date and time: 09/26/2021 4:25 PM Age: 56 years old Clinical indication: Other: Cough, chest tightness TECHNIQUE: Imaging protocol: XR of the chest. Views: 1 view. COMPARISON: CR XR PORTABLE CHEST AP 30/08/2020 09:26 FINDINGS: Tubes, catheters and devices: EKG wires overlie the chest. Lungs: Decreased lung volumes. Patchy infiltrate at the lung bases. Pleural spaces: Unremarkable. No pleural effusion. No pneumothorax. Heart/Mediastinum: Stable cardiomediastinal silhouette. Bones/joints: Unremarkable for patient's age. IMPRESSION: Bilateral patchy infiltrates. Dictated and Authenticated by: Jaja Santos MD. Ordering:FARTUN Pastor MD
[2021-09-26 17:03] LABS: COVID-19 PCR Negative (Negative)
[2021-09-26] MEDS: Acetaminophen 325 MG TAB 650 MG PO (17:11)
[2021-09-26] MEDS: Doxycycline Hyclate 100 MG CAP PO (17:17)
[2021-09-26] MEDS: Ondansetron 4 MG/2 ML VIAL IVP (17:57)
[2021-09-26] MEDS: methylPREDNISolone SUCC 125 MG VIAL IVP (17:59)
[2021-09-26] MEDS: Albuterol HFA 8 GM 60 PUFF INH IH (18:00)
[2021-09-26] MEDS: Inhaler, Assist Device 1 EACH MC (18:01)
[2021-09-26 19:06] LABS: Troponin I < 50 ng/L (<or=60)
== END 2021-09-26 19:34 | disposition home or self-care (01) ==
PROVIDERS: Physician Assistant; Emergency Provider Registered Nurse Emergency; PCP Nurse Practitioner Acute Care
DX: J18.9 Pneumonia, unspecified organism (principal); R07.9 Chest pain, unspecified; R07.89 Other chest pain; R06.02 Shortness of breath
CPT/HCPCS: 36415; 80053; 87040; 87635; 93005; 96374; 96375; 99284; 71045; 83880; 84484; 85025; 93010; J2405; J2930

== ENCOUNTER 2021-12-27 19:12 | Emergency (ER) | payer MEDICAID, SELFPAY ==
[2021-12-27 19:30] VITALS: BP 112/68; PULSE 87; RESP 16; TEMP 36.8; O2SAT 97
--- NOTE | 2021-12-27 19:54 | W.ED.GENAD ---
Discharge Plan Disposition Patient Disposition: HOME Condition: Stable Discharge Details Clinical Impression: Abnormal vaginal bleeding Primary Care Provider: Manoj Dee ED Provider: Mike Chauhan Home Meds and New Rx's Prescriptions: Continued omeprazole 20 MG capsule,delayed release(DR/EC) 20 mg PO DAILY@0730 albuterol sulfate [Proventil HFA] 6.7 GM HFA aerosol inhaler 2 puff Inhalation PRN PRN fluoxetine 20 mg capsule 40 mg PO DAILY amitriptyline 25 mg Tablet 50 mg PO HS calcium carbonate-vitamin D3 [Calcium 500 + D (D3)] 500 mg(1,250mg) -125 unit Tablet 1 tab PO DAILY fluticasone propion-salmeterol [Advair Diskus] 250-50 mcg/dose Blister With Device 1 inh INHALATION 1XD celecoxib [Celebrex] 200 mg capsule 200 mg PO PRN PRN Label Comments: TAKE 1 TO 2 CAPSULES BY MOUTH AT BEDTIME NEEDED FOR PAIN atorvastatin 80 mg Tablet 80 mg PO DAILY nitroglycerin 0.4 mg Tablet, Sublingual 0.4 mg sublingual PRN PRN oxybutynin chloride 5 mg tablet extended release 24hr 5 mg PO HS montelukast 10 mg Tablet 10 mg PO DAILY Label Comments: does not take Discharge Instructions Instructions: Abnormal (Dysfunctional) Uterine Bleeding (ED) Additional Instructions: call the radiology department to arrange for an ultrasound if you feel more ill, have weakness, difficulty breathing return to the emergency departmen you should be contacted for an appointment with [facility], if you don't hear by Monday call their clinic at [phone] Medical Decision Making 56 yo female with hx gerd, ibs, anxiety, who comes in with cc of blood running down her leg. She states she was taking a bath stood up and noticed blood running down her leg so came here. She is unsure where the blood was coming from, denies abdomen pain, lightheadedness, weakness. She states she otherwise feels fine and has no symptoms. She is caox4, no abdomen tenderness. With nurse plasterer helper Maritza Barreto performed rectal exam which was normal without bleeding, did appear she had blood coming from her vagina, will perform speculum exam after nursing sets up patient for this. again using nuse plasterer helper speculum exam performed, had small amount of vaginal bleeding in vaginal vault, unable to visualize cervix but suspect uterine bleed, will have her return for u/s and have her follow up with [facility]. Discussed with pt and advised potential diagnoses such as fibroid and cancer, she understands importance of f/u and return precautions given Differential Diagnosis Differential Diagnosis: rectal bleeding, postmenopausal bleeding, uterine cancer, fibroid Lab Data Lab results reviewed: Yes I reviewed the patient's lab results. HPI General Mode of arrival: ambulatory. Date/Time Provider Initiated Documentation: 12/27/21 19:39. Limitations to Documentation: no limitations. Information obtained by: patient. History of Present Illness 56 year old F presents to the emergency department with the chief complaint of had blood going down her leg, described as moderate, and it has been constant. No relieving factors improve symptom(s), No exacerbating factors reported . Patient notes no other symptoms.. Patient did receive the following treatments prior to arrival, none Related Data Home Medications Medication Instructions Recorded Confirmed albuterol sulfate 90 mcg/actuation 2 puff inhalation PRN PRN 09/26/12 12/27/21 aerosol inhaler (Proventil HFA) omeprazole 20 mg capsule,delayed 20 mg PO DAILY@0730 09/26/12 12/27/21 release amitriptyline 25 mg tablet 50 mg PO HS 05/13/18 12/27/21 calcium carbonate 500 mg-vitamin 1 tab PO DAILY 05/13/18 12/27/21 D3 3.125 mcg (125 unit) tablet (Calcium) atorvastatin 80 mg tablet 80 mg PO DAILY 03/09/21 12/27/21 celecoxib 200 mg capsule (Celebrex) 200 mg PO PRN PRN 03/09/21 12/27/21 montelukast 10 mg tablet 10 mg PO DAILY 03/09/21 12/27/21 nitroglycerin 0.4 mg sublingual 0.4 mg sublingual PRN PRN 03/09/21 12/27/21 tablet oxybutynin chloride 5 mg 5 mg PO HS 03/09/21 12/27/21 tablet,extended release 24 hr fluoxetine 20 mg capsule 40 mg PO DAILY 03/11/21 12/27/21 fluticasone 250 mcg-salmeterol 50 1 inh inhalation 1XD 12/27/21 12/27/21 mcg/dose blistr powdr for inhalation (Advair Diskus) Allergies Allergy/AdvReac Type Severity Reaction Status Date / Time No Known Allergies Allergy Unverified 12/27/21 19:36 General Stated Complaint: GI Bleed NIRU: 3 Review of Systems All systems reviewed & are unremarkable except as noted in HPI and below Constitutional Constitutional: Denies chills, Denies fever(s) and Denies weakness Eyes Eyes: Denies loss of vision ENT Ears, Nose, Mouth, and Throat: Denies change in voice Cardiovascular Cardiovascular: Denies chest pain and Denies dyspnea Respiratory Respiratory: Denies cough and Denies dyspnea Gastrointestinal Gastrointestinal: Denies abdominal pain, Denies nausea and Denies vomiting Integumentary/Breasts Skin/Breast: Denies rash Neurologic Neurologic: Denies loss of vision and Denies weakness PFSH All Active Problems (Updated 12/27/21 @ 21:15 by Mike Chauhan MD) Abnormal vaginal bleeding (Acute) Chest pain (Acute) UTI (urinary tract infection) (Acute) Edentulous (Acute) Hearing deficit (Acute) Asthma (Chronic) Anxiety (Chronic) Medical History Abnormal finding on EKG had normal cath in past. Saw Cardiology resently and was cleared for surgery Asthma Candidiasis of skin Depression Hip pain Normal colonoscopy (~03/19/21) Surgical History Appendectomy Arthroplasty of knee left cardiac cath pt. states 4-5 days, and f/u with PCP section History of colonoscopy (~03/19/21) stoiber History of hip replacement Laparoscopy, diagnostic with drainage of ovarian cyst Ligation of fallopian tube Replacement of total knee joint right Family History Other Diabetes Essential hypertension Hyperlipidemia Social History Smoking/Tobacco Use Status: Never Smoking risk assessment performed?: Yes Alcohol Intake: never Drug use: Never Substance use type: does not use Do you feel safe at home: Yes Do you feel safe in your relationship?: Yes Exam Const General: no acute distress Orientation: alert HENMT Head: normal to inspection Ears: external ears normal General nose exam: external nose normal Mouth: moist mucous membranes Eyes General: appearance normal, both eyes and all related structures Neck Neck: normal visual inspection Resp Effort & Inspection: normal respiratory effort and able to speak in complete sentences Cardio Rate: regular rate GI Palpation: soft and nontender Skin General skin exam: no rashes or lesions noted Neuro General: patient alert and patient oriented x3 Extrem General: normal to inspection Psych Mental Status: mental status grossly normal Course Vital Signs Vital signs: Vital Signs Temperature 36.8 C 12/27/21 19:30 Pulse 87 12/27/21 19:30 Respiratory Rate 16 12/27/21 19:30 Blood Pressure 112/68 12/27/21 19:30 Pulse Oximetry 97 12/27/21 19:30 Temperature 36.8 C 12/27/21 19:30 Temperature Source Temporal Artery Scan 12/27/21 19:30 Pulse 87 12/27/21 19:30 Respiratory Rate 16 12/27/21 19:30 Respiratory Effort Non-Labored 12/27/21 19:35 Blood Pressure 112/68 12/27/21 19:30 Blood Pressure Position Sitting 12/27/21 19:30 Pulse Oximetry 97 12/27/21 19:30 Oxygen Delivery Method Room Air 12/27/21 19:30 Oxygen Flow Rate 0 12/27/21 19:30 Pain Level 0 12/27/21 19:30
[2021-12-27 20:37] LABS: HCT 37.6 % (36.0-46.0); HGB 12.2 g/dL (11.2-15.7); MCH 29.3 pg (27.0-33.0); MCHC 32.4 % (32.0-36.0); MCV 90 fL (80-95); MPV 9.5 fL (8.0-11.0); Platelet Count 296 10^3/uL (130-400); RBC 4.17 10^6/uL (3.93-5.22); RDW 12.4 % (11.7-14.6); RDW-SD 41.1 fL; WBC 9.47 10^3/uL (4.4-10.8)
--- NOTE | 2021-12-27 21:02 | NUR.NOTE ---
Ultrasound requisition faxed to [facility] and referral [facility] to [facility]. Patient needs to follow up with [facility] after Ultrasound for post menopausal bleeding.Nursing Note:
[2021-12-27 21:19] VITALS: BP 123/67; PULSE 82; RESP 16; O2SAT 98
== END 2021-12-27 21:28 | disposition home or self-care (01) ==
PROVIDERS: Emergency Provider Emergency Medicine; PCP Nurse Practitioner Acute Care
DX: N93.9 Abnormal uterine and vaginal bleeding, unspecified (principal); J45.909 Unspecified asthma, uncomplicated; Z79.51 Long term (current) use of inhaled steroids
CPT/HCPCS: 85027; 99282

== ENCOUNTER → 2021-12-28 12:36 | Outpatient (CLI) | payer MEDICAID, SELFPAY ==
--- NOTE | 2021-12-28 | DI.US_ITS ---
Exam(s) US PELVIS TRANSVAGINAL EXAM: US PELVIS TRANSVAGINAL CLINICAL HISTORY: POST MENOPAUSAL BLEEDING TECHNIQUE: Ultrasound performed using standard protocol. COMPARISON: US US PELVIS TRANSVAGINAL from 10/06/2020 FINDINGS: Pelvic ultrasound was performed transabdominally and transvaginally. Uterus measures about 5.7 x 2.5 x 4.0 cm. Endometrial stripe is 5 millimeters in thickness and appea rs homogeneous. There are a couple of apparent sub centimeter anterior fundal uterine fibroids. No other myometrial abnormality seen. Ovaries were nonvisualized. Limited scanning of the kidneys is unremarkable. No free fluid in the pelvis. IMPRESSION: Presumed small uterine fibroids. No other specific abnormality. Ovaries were nonvisualized. DATA REPOSITORY:
== END ==
PROVIDERS: PCP Nurse Practitioner Acute Care; Visit Provider Emergency Medicine
DX: D25.9 Leiomyoma of uterus, unspecified (principal)
CPT/HCPCS: 76830; 76856

== ENCOUNTER 2021-12-29 12:09 | Outpatient (REF) | payer MEDICAID, SELFPAY ==
--- NOTE | 2021-12-29 11:30 | PAPFT_PTH ---
PATIENT: Ana Pollock LOC: [facility] U#:[id number] AGE/SX: 56/F ROOM: RE12/29/[address]: Ani Purvis MD : [id number] BED: DIS: 12/29/2021 SPEC #: [id number] RECD: 12/29/21 12:53 STATUS: MATTKim REQ #: [id number] CORNELIUS: 12/29/21 11:[address]: Ani Purvis DEPT: [facility] Cytology RECD BY: Jada Lacy ENTERED: 12/29/21 12:54 SP TYPE: PAPFT OTHR DR: Manoj Dee Tissues: 1 - CX/ENDOCX FOR PAP SMEARS Procedures: PAP THIN PREP/UVM Screening HPV DNA PROBE Comments: [id number] (HPV 16 & 18/45)
== END 2021-12-29 12:10 | disposition home or self-care (01) ==
LOC: LBN 12:09
PROVIDERS: PCP Nurse Practitioner Acute Care; Visit Provider Obstetrics & Gynecology
DX: Z12.4 Encounter for screening for malignant neoplasm of cervix (principal); Z11.51 Encounter for screening for human papillomavirus (HPV); R87.810 Cervical high risk human papillomavirus (HPV) DNA test positive
CPT/HCPCS: 88142; 87624

== ENCOUNTER 2022-01-17 12:03 | Emergency (ER) | payer MEDICAID, SELFPAY ==
[2022-01-17 12:05] VITALS: BP 118/79; PULSE 102; TEMP 36.5; O2SAT 96
[2022-01-17 12:15] VITALS: RESP 20
--- NOTE | 2022-01-17 12:30 | RT.EKG_ITS ---
APPROVED REPORT Exam: Resting ECG Reason for Exam: syncope Patient Location: E HR:96 bpm ECG Measurements Heart Rate 96 AXIS IL 166 P 29 QRSd 91 QRS 49 QT 345 T -26 QTc 437 Conclusion Sinus rhythm...normal P axis, V-rate 60- 99 Nonspecific repol abnormality, diffuse leads...ST dep, T flat/neg, ant/lat/inf sinus rhythm at 96, normal axis, nonspecific ST changes V3 through V4, chronic similar morphology of prior EKGs, no STEMI, nondiagnostic EKG
--- NOTE | 2022-01-17 13:30 | DI.CT_ITS ---
Exam(s) CT HEAD WO EXAM: CT HEAD WO CLINICAL HISTORY: trauma, headache. TECHNIQUE: Imaging Protocol: Axial computed tomography images with coronal and sagittal reformatted images were created and reviewed COMPARISON: No exams were available for comparison FINDINGS: There are no skull fractures nor fluid in the visualized paranasal sinuses. There is no evidence of intracranial hemorrhage, mass effect, or shift of midline structures. There are no extra-axial fluid collections. The ventricles are not enlarged or shifted and there is no blo od within the ventricular system nor within the basal cisterns. IMPRESSION: No acute intracranial findings on this noninfused CT scan of the brain. RADIATION DOSE DELIVERED: 739.91mGy.cm Total DLP DATA REPOSITORY: All CT scans at this facility are submitted to the National Radiology Data Registry (NRDR) Dose Index Registry (DIR) with the [employer] (A[employer]). RADIATION OPTIMIZATION: All CT scans at this facility use at least one of these dose optimization te chniques: automated exposure control; mA and/or kV adjustment per patient size (includes targeted exa ms where dose is matched to clinical indication); or iterative reconstruction.
[2022-01-17 14:31] LABS: Abs Immature Grans 0.06 10^3/uL (0.0-0.06); Absolute Lymphocyte Count 0.95 10^3/uL (1.2-3.4); Absolute Monocyte Count 0.67 10^3/uL (0.1-0.8); Basophils % 0.3; Eosinophils % 0.1; HCT 38.6 % (36.0-46.0); HGB 12.7 g/dL (11.2-15.7); Immature Grans % 0.4; MCH 29.5 pg (27.0-33.0); MCHC 32.9 % (32.0-36.0); MCV 90 fL (80-95); MPV 10.2 fL (8.0-11.0); Monocytes % 4.2; Platelet Count 255 10^3/uL (130-400); RDW 12.2 % (11.7-14.6); RDW-SD 40.1 fL; WBC 15.88 10^3/uL (4.4-10.8)
[2022-01-17 14:33] LABS: Absolute Basophil Count 0.05 10^3/uL (0.0-0.2); Absolute Eosinophil Count 0.02 10^3/uL (0.0-0.7); Absolute Neutrophil Count 14.13 10^3/uL (1.2-6.7)
[2022-01-17 14:53] LABS: COVID-19 PCR Negative (Negative); Influenza A PCR Negative (Negative); Influenza B PCR Negative (Negative); RSV PCR Negative (Negative)
[2022-01-17 14:55] LABS: ALT 19 U/L (14-59); AST 23 U/L (15-37); Albumin 3.4 g/dL (3.4-5.0); Alkaline Phosphatase 87 U/L (46-116); Anion Gap 10.6 mmol/L (3-11); BUN 25 mg/dL (7-18); Bilirubin, Total 0.9 mg/dL (0.2-1.0); CO2 25.4 mmol/L (21.0-32.0); Calcium 8.6 mg/dL (8.5-10.1); Chloride 101 mmol/L (98-107); Estimated GFR 66.12 (mL/min/1.73m2); Glucose 140 mg/dL (74-106); Potassium 3.4 mmol/L (3.5-5.1); Sodium 137 mmol/L (136-145); Total Protein 7.6 g/dL (6.4-8.2); Troponin I < 50 ng/L (<or=60)
[2022-01-17 15:01] LABS: Lactate 0.8 mmol/L (0.6-1.4)
--- NOTE | 2022-01-17 15:30 | DI.CT_ITS ---
Exam(s) CT CHEST PE CTA EXAM: CT CHEST PE CTA CLINICAL HISTORY: syncope. TECHNIQUE: Imaging Protocol: CT angiography of the chest was performed using pulmonary embolus shae col. Multi planar reconstructions were performed. CONTRAST MATERIAL: Intravenous: Omnipaque 350 Contrast volume: 100 cc COMPARISON: CT CT ABDOMEN PELVIS W from 03/09/[address] HEAD WO from 01/17/2022 FINDINGS: CHEST: PULMONARY ARTERIES: There are no intraluminal filling defects to suggest acute pulmonary emboli. LUNGS: Prominent area of infiltrate in the left lower lobe, predominantly involving the posterior bas al segment. No associated pleural effusion. There is relative sparing of the left upper lobe and li ngular segment and there is no infiltrate in the right lung. No pleural effusion on either side.. MEDIASTINUM: There is no hilar nor mediastinal adenopathy. CARDIAC: Heart size is upper normal. There is no pericardial effusion.Caliber of the thoracic aorta is within normal limits. No dissection. Independent origin of the left vertebral artery seen off the aortic arch. There is no significant shift of the interventricular septum. PARTIALLY VISUALIZED UPPERMOST ABDOMEN: No obvious findings OSSEOUS: No significant osseous lesions.. IMPRESSION: 1. Main finding here is prominent area of infiltrate in the left lower lobe..No pleural effusion. Ri ght lung is clear. No adenopathy evident. 2. No obvious pulmonary emboli. 3. RADIATION DOSE DELIVERED: 472.59mGy.cm Total DLP DATA REPOSITORY: All CT scans at this facility are submitted to the National Radiology Data Registry (NRDR) Dose Index Registry (DIR) with the [employer] (ACR). RADIATION OPTIMIZATION: All CT scans at this facility use at least one of these dose optimization te chniques: automated exposure control; mA and/or kV adjustment per patient size (includes targeted exa ms where dose is matched to clinical indication); or iterative reconstruction.
[2022-01-17 15:35] LABS: D-Dimer 969 ng/mlFEU (<500)
--- NOTE | 2022-01-17 16:24 | ED.GENADUL_ITS ---
Discharge Plan Disposition Patient Disposition: HOME Condition: Improving Discharge Details Clinical Impression: Pneumonia, Syncope Primary Care Provider: Manoj Dee ED Provider: Imelda Warren Home Meds and New Rx's Prescriptions: New doxycycline hyclate 100 mg tablet 100 mg PO BID Qty: 9 0RF Continued albuterol sulfate [Proventil HFA] 6.7 GM HFA aerosol inhaler 2 puff Inhalation PRN PRN fluoxetine 20 mg capsule 40 mg PO DAILY amitriptyline 25 mg Tablet 50 mg PO HS calcium carbonate-vitamin D3 [Calcium 500 + D (D3)] 500 mg(1,250mg) -125 unit Tablet 1 tab PO DAILY fluticasone propion-salmeterol [Advair Diskus] 250-50 mcg/dose Blister With Device 1 inh INHALATION 1XD atorvastatin 80 mg Tablet 80 mg PO DAILY nitroglycerin 0.4 mg Tablet, Sublingual 0.4 mg sublingual PRN PRN oxybutynin chloride 5 mg tablet extended release 24hr 5 mg PO HS montelukast 10 mg Tablet 10 mg PO DAILY Label Comments: does not take Discharge Instructions Instructions: Syncope (ED), Pneumonia (ED) Additional Instructions: Please return immediately to the emergency department if you develop any new or worsening symptoms, if your condition does not improve as expected, or if you become otherwise concerned. It is extremely important that you call soon as possible to make an appointment to be seen in follow-up for this visit by your primary care doctor. Referrals: Manoj Dee [Primary Care Provider] - Discharge Orders Other Ambulatory Orders: Holter Monitor (Routine) Timeframe: 1 Week Facility: [facility] - Location: Respiratory Therapy Ordered By: Imleda Warren Discharge Data Discharge Date/Time-TO BE ENTERED AT DEPARTURE: 01/17/22 18:56 Medical Decision Making Concern for COVID, PNA, dehydration, PE, intracranial trauma, other. Doubt arrhythmia, doubt ACS. Exam/hx at this time not c/w cervical spine trauma, acute aortic pathology, sepsis. Plan for IV placement, EKG, screening labs, cxr, CT head, IVF hydration, will monitor and reassess. CT head neg for acute process. d-dimer elevated, plan for CT chest. CT shows infiltrate. Pt reports that she has not been hospitalized in the past 3 months, did have PNA 09/26, was treated with oral abx and developed c.diff. Unsure which abx she was treated with. Plan for doxy for lower c. diff risk profile. Plan for outpt f/u with PCP, outpt holter. Patient states she feels much better and states that she is ready to go home. Tolerated p.o. without issue. I had a discussion with Patient regarding return to emergency department precautions, home care, and importance of outpatient follow-up. Pt verbalizes understanding of the plan and is amenable. Patient discharged to home with clear plan for outpatient follow-up. All questions were answered. Disposition decision was made weighing the risks and benefits of hospitalization versus outpatient treatment, the risk for further decompensation, and the patient's wishes. Medical Records Medical records reviewed: Yes I reviewed the patient's medical records. Imaging Data Radiologic Study: Attestation: I personally reviewed and interpreted this imaging study as follows: Radiologist's impression: EXAM: ? CT CHEST PE CTA CLINICAL HISTORY: ? syncope. ? TECHNIQUE:? Imaging Protocol: CT angiography of the chest was performed using pulmonary embolus protocol.? Multi planar reconstructions were performed. CONTRAST MATERIAL:? Intravenous: Omnipaque 350 Contrast volume: 100 cc COMPARISON:? CT CT ABDOMEN ? PELVIS W from 03/09/[address] HEAD WO from 01/17/2022 FINDINGS: CHEST: PULMONARY ARTERIES: There are no intraluminal filling defects to suggest acute pulmonary emboli. LUNGS: Prominent area of infiltrate in the left lower lobe, predominantly involving the posterior basal segment.? No associated pleural effusion.? There is relative sparing of the left upper lobe and lingular segment and there is no infiltrate in the right lung.? No pleural effusion on either side.. MEDIASTINUM: There is no hilar nor mediastinal adenopathy.? CARDIAC: Heart size is upper normal.? There is no pericardial effusion.Caliber of the thoracic aorta is within normal limits. No dissection.? Independent origin of the left vertebral artery seen off the aortic arch.? There is no significant shift of the interventricular septum. PARTIALLY VISUALIZED UPPERMOST ABDOMEN: No obvious findings OSSEOUS: No significant osseous lesions.. IMPRESSION: 1. Main finding here is prominent area of infiltrate in the left lower lobe..No pleural effusion.? Right lung is clear.? No adenopathy evident. 2. No obvious pulmonary emboli. EXAM: ? CT HEAD WO CLINICAL HISTORY: ? trauma, headache. ? TECHNIQUE:? Imaging Protocol: Axial computed tomography images with coronal and sagittal reformatted images were created and reviewed COMPARISON:? No exams were available for comparison FINDINGS: ?There are no skull fractures nor fluid in the visualized paranasal sinuses. There is no evidence of intracranial hemorrhage, mass effect, or shift of midline structures.? There are no extra-axial fluid collections.? The ventricles are not enlarged or shifted and there is no blood within the ventricular system nor within the basal cisterns. IMPRESSION: No acute intracranial findings on this noninfused CT scan of the brain. Lab Data Lab results reviewed: Yes I reviewed the patient's lab results. Labs: 01/17/22 14:40 Blood Blood Culture - Final NO GROWTH 120 HOURS 01/17/22 14:53 Blood Blood Culture - Final NO GROWTH 120 HOURS Laboratory Tests Range/Units 01/17/22 01/17/22 01/17/22 13:45 13:45 14:00 WBC (4.4-10.8) 10^3/uL 15.88 H RBC (3.93-5.22) 10^6/uL 4.30 Hgb (11.2-15.7) g/dL 12.7 Hct (36.0-46.0) % 38.6 MCV (80-95) fL 90 MCH (27.0-33.0) pg 29.5 MCHC (32.0-36.0) % 32.9 RDW (11.7-14.6) % 12.2 Plt Count (130-400) 10^3/uL 255 MPV (8.0-11.0) fL 10.2 Immature Gran % 0.4 Neutrophils % 89.0 Lymphocytes % 6.0 Monocytes % 4.2 Eosinophils % 0.1 Basophils % 0.3 Nucleated RBC % (0.0-0.3) % 0.0 Absolute Neutrophils (1.2-6.7) 10^3/uL 14.13 H Absolute Lymphocytes (1.2-3.4) 10^3/uL 0.95 L Absolute Monocytes (0.1-0.8) 10^3/uL 0.67 Absolute Eosinophils (0.0-0.7) 10^3/uL 0.02 Absolute Basophils (0.0-0.2) 10^3/uL 0.05 D-Dimer (<500) ng/mlFEU VBG Lactate (0.6-1.4) mmol/L Sodium (136-145) mmol/L 137 Potassium (3.5-5.1) mmol/L 3.4 L Chloride (98-107) mmol/L 101 Carbon Dioxide (21.0-32.0) mmol/L 25.4 Anion Gap (3-11) mmol/L 10.6 BUN (7-18) mg/dL 25 H Creatinine (0.55-1.02) mg/dL 1.0 Est GFR (CKD-EPI 2020) (mL/min/1.73m2) 66.12 Glucose (74-106) mg/dL 140 H Calcium (8.5-10.1) mg/dL 8.6 Total Bilirubin (0.2-1.0) mg/dL 0.9 AST (15-37) U/L 23 ALT (14-59) U/L 19 Alkaline Phosphatase (46-116) U/L 87 Troponin I (<or=60) ng/L < 50 Total Protein (6.4-8.2) g/dL 7.6 Albumin (3.4-5.0) g/dL 3.4 COVID-19 Source Not Applicable SARS-CoV-2 (PCR) (Negative) Negative Influenza Type A (PCR) (Negative) Negative Influenza Type B (PCR) (Negative) Negative RSV (PCR) (Negative) Negative Range/Units 01/17/22 01/17/22 01/17/22 14:53 14:53 18:00 WBC (4.4-10.8) 10^3/uL RBC (3.93-5.22) 10^6/uL Hgb (11.2-15.7) g/dL Hct (36.0-46.0) % MCV (80-95) fL MCH (27.0-33.0) pg MCHC (32.0-36.0) % RDW (11.7-14.6) % Plt Count (130-400) 10^3/uL MPV (8.0-11.0) fL Immature Gran % Neutrophils % Lymphocytes % Monocytes % Eosinophils % Basophils % Nucleated RBC % (0.0-0.3) % Absolute Neutrophils (1.2-6.7) 10^3/uL Absolute Lymphocytes (1.2-3.4) 10^3/uL Absolute Monocytes (0.1-0.8) 10^3/uL Absolute Eosinophils (0.0-0.7) 10^3/uL Absolute Basophils (0.0-0.2) 10^3/uL D-Dimer (<500) ng/mlFEU 969 H VBG Lactate (0.6-1.4) mmol/L 0.8 Sodium (136-145) mmol/L Potassium (3.5-5.1) mmol/L Chloride (98-107) mmol/L Carbon Dioxide (21.0-32.0) mmol/L Anion Gap (3-11) mmol/L BUN (7-18) mg/dL Creatinine (0.55-1.02) mg/dL Est GFR (CKD-EPI 2020) (mL/min/1.73m2) Glucose (74-106) mg/dL Calcium (8.5-10.1) mg/dL Total Bilirubin (0.2-1.0) mg/dL AST (15-37) U/L ALT (14-59) U/L Alkaline Phosphatase (46-116) U/L Troponin I (<or=60) ng/L < 50 Total Protein (6.4-8.2) g/dL Albumin (3.4-5.0) g/dL COVID-19 Source SARS-CoV-2 (PCR) (Negative) Influenza Type A (PCR) (Negative) Influenza Type B (PCR) (Negative) RSV (PCR) (Negative) ECG Data Attestation: I personally reviewed and interpreted this ECG (s) as follows: Interpretation: EKG shows sinus rhythm at 96, normal axis, nonspecific ST changes V3 through V4, chronic similar morphology of prior EKGs, no STEMI, nondiagnostic EKG HPI General Date/Time Provider Initiated Documentation: 01/17/22 12:23 . Limitations to Documentation: no limitations . Information obtained by: patient, RN notes reviewed and old records reviewed . HPI Narrative: Ana Pollock is a 56 y/o woman with h/o HLD, asthma presenting to the [facility] with syncopal episode. Pt reports that she has had cough for approximately one week. Yesterday had some vomiting (nonbilious, nonbloody), now resolved, ate today without issue. 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 Pt reports that she then lost consciousness, remembers waking up on the ground. Pt denies h/o syncope in the past. Reports mild headache. Denies any other pain, fever, SOB, diarrhea, numbness, weakness, rash. Related Data Home Medications Medication Instructions Recorded Confirmed albuterol sulfate 90 mcg/actuation 2 puff inhalation PRN PRN 09/26/12 01/17/22 aerosol inhaler (Proventil HFA) amitriptyline 25 mg tablet 50 mg PO HS 05/13/18 01/17/22 calcium carbonate 500 mg-vitamin 1 tab PO DAILY 05/13/18 01/17/22 D3 3.125 mcg (125 unit) tablet (Calcium) atorvastatin 80 mg tablet 80 mg PO DAILY 03/09/21 01/17/22 montelukast 10 mg tablet 10 mg PO DAILY 03/09/21 01/17/22 nitroglycerin 0.4 mg sublingual 0.4 mg sublingual PRN PRN 03/09/21 01/17/22 tablet oxybutynin chloride 5 mg 5 mg PO HS 03/09/21 01/17/22 tablet,extended release 24 hr fluoxetine 20 mg capsule 40 mg PO DAILY 03/11/21 01/17/22 fluticasone 250 mcg-salmeterol 50 1 inh inhalation 1XD 12/27/21 01/17/22 mcg/dose blistr powdr for inhalation (Advair Diskus) doxycycline hyclate 100 mg tablet 100 mg PO BID #9 tabs 01/17/22 Previous Rx's Medication Instructions Recorded doxycycline hyclate 100 mg tablet 100 mg PO BID #9 tabs 01/17/22 Allergies Allergy/AdvReac Type Severity Reaction Status Date / Time No Known Allergies Allergy Unverified 01/17/22 12:11 General Stated Complaint: Dizzy/Sync NIRU: 3 Review of Systems Narrative: Constitutional: denies fevers Eyes: denies eye pain ENT: denies ear pain, dental pain, sore throat Cardiovascular: denies chest pain, edema, palpitations reports lightheadedness, syncope Respiratory: denies SOB, reports cough GI: denies abdominal pain, diarrhea, reports vomiting : denies flank pain MSK: denies back pain, neck pain, arthralgias, myalgias Skin: denies rash Neuro: denies headaches, numbness, weakness PFSH All Active Problems (Updated 01/27/22 @ 00:10 by ROSCOE DUVALL) Pneumonia (Acute) Syncope (Chronic) Syncope (Chronic) Postmenopausal bleeding (Acute) Chest pain (Acute) UTI (urinary tract infection) (Acute) Edentulous (Acute) Hearing deficit (Acute) Asthma (Chronic) Anxiety (Chronic) Medical History (Updated 01/27/22 @ 00:10 by ROSCOE DUVALL) Abnormal finding on EKG had normal cath in past. Saw Cardiology resently and was cleared for surgery Abnormal vaginal bleeding Candidiasis of skin Depression Hip pain Normal colonoscopy (~03/19/21) Surgical History Appendectomy Arthroplasty of knee left cardiac cath pt. states 4-5 days, and f/u with PCP section History of colonoscopy (~03/19/21) stoiber History of hip replacement Laparoscopy, diagnostic with drainage of ovarian cyst Ligation of fallopian tube Replacement of total knee joint right Family History Other Diabetes Essential hypertension Hyperlipidemia Social History Smoking/Tobacco Use Status: Never Smoking risk assessment performed?: Yes Alcohol Intake: never Drug use: Never Substance use type: does not use Do you feel safe at home: Yes Do you feel safe in your relationship?: Yes Female Reproductive History Menstrual Age of Menarche: 13 Duration of menses: 3-5 days control method: none Menopause type: natural History History 3 Para 0 Hx # Term Pregnancies Multiple births Hx # Pregnancies Ectopic pregnancies AB induced Hx Number of Living Children AB spontaneous Exam Narrative Exam Narrative: Constitutional: well and [id number], pleasant, conversing normally HENT: head atraumatic/normocephalic/normal inspection, mucous membranes somewhat dry Eyes: conjunctiva normal, sclera normal, pupils 3mm b/l Neck: no stridor, normal ROM, trachea midline Chest: normal inspection Resp: normal work of breathing, mild rhonchi throughout the left lung mueller, otherwise normal auscultation Cardio: borderline tachycardic rate 100, normal rhythm, no murmur appreciated GI: abdomen soft, non-tender, non-distended Back: normal inspection, no rash Skin: warm, dry, normal color, no rash Neuro: alert, not altered, grossly non-focal, normal tone Ext: no edema, no posterior calf TTP Psych: normal mood, normal affect, normal behavior Course Vital Signs Vital signs: Vital Signs Temperature 36.5 C 01/17/22 12:05 Pulse 102 H 01/17/22 12:05 Blood Pressure 118/79 01/17/22 12:05 Pulse Oximetry 96 01/17/22 12:05 Temperature 36.5 C 01/17/22 12:05 Temperature Source Temporal Artery Scan 01/17/22 12:05 Pulse 102 H 01/17/22 12:05 Respiratory Rate 20 01/17/22 12:15 Respiratory Effort Non-Labored 01/17/22 15:16 Respiratory Depth Normal 01/17/22 15:16 Respiratory Pattern Normal 01/17/22 15:16 Blood Pressure 118/79 01/17/22 12:05 Blood Pressure Position Supine 01/17/22 12:05 Pulse Oximetry 96 01/17/22 12:05 Oxygen Delivery Method Room Air 01/17/22 15:16 Oxygen Flow Rate 0 01/17/22 15:16 Pain Level 0 01/17/22 12:05 Lab/Test Results Lab/Test Results: 01/17/22 14:40 Blood Blood Culture - Pending 01/17/22 14:53 Blood Blood Culture - Pending Laboratory Tests Range/Units 01/17/22 01/17/22 01/17/22 13:45 13:45 14:00 WBC (4.4-10.8) 10^3/uL 15.88 H RBC (3.93-5.22) 10^6/uL 4.30 Hgb (11.2-15.7) g/dL 12.7 Hct (36.0-46.0) % 38.6 MCV (80-95) fL 90 MCH (27.0-33.0) pg 29.5 MCHC (32.0-36.0) % 32.9 RDW (11.7-14.6) % 12.2 Plt Count (130-400) 10^3/uL 255 MPV (8.0-11.0) fL 10.2 Immature Gran % 0.4 Neutrophils % 89.0 Lymphocytes % 6.0 Monocytes % 4.2 Eosinophils % 0.1 Basophils % 0.3 Nucleated RBC % (0.0-0.3) % 0.0 Absolute Neutrophils (1.2-6.7) 10^3/uL 14.13 H Absolute Lymphocytes (1.2-3.4) 10^3/uL 0.95 L Absolute Monocytes (0.1-0.8) 10^3/uL 0.67 Absolute Eosinophils (0.0-0.7) 10^3/uL 0.02 Absolute Basophils (0.0-0.2) 10^3/uL 0.05 D-Dimer (<500) ng/mlFEU VBG Lactate (0.6-1.4) mmol/L Sodium (136-145) mmol/L 137 Potassium (3.5-5.1) mmol/L 3.4 L Chloride (98-107) mmol/L 101 Carbon Dioxide (21.0-32.0) mmol/L 25.4 Anion Gap (3-11) mmol/L 10.6 BUN (7-18) mg/dL 25 H Creatinine (0.55-1.02) mg/dL 1.0 Est GFR (CKD-EPI 2020) (mL/min/1.73m2) 66.12 Glucose (74-106) mg/dL 140 H Calcium (8.5-10.1) mg/dL 8.6 Total Bilirubin (0.2-1.0) mg/dL 0.9 AST (15-37) U/L 23 ALT (14-59) U/L 19 Alkaline Phosphatase (46-116) U/L 87 Troponin I (<or=60) ng/L < 50 Total Protein (6.4-8.2) g/dL 7.6 Albumin (3.4-5.0) g/dL 3.4 COVID-19 Source Not Applicable SARS-CoV-2 (PCR) (Negative) Negative Influenza Type A (PCR) (Negative) Negative Influenza Type B (PCR) (Negative) Negative RSV (PCR) (Negative) Negative Range/Units 01/17/22 01/17/22 14:53 14:53 WBC (4.4-10.8) 10^3/uL RBC (3.93-5.22) 10^6/uL Hgb (11.2-15.7) g/dL Hct (36.0-46.0) % MCV (80-95) fL MCH (27.0-33.0) pg MCHC (32.0-36.0) % RDW (11.7-14.6) % Plt Count (130-400) 10^3/uL MPV (8.0-11.0) fL Immature Gran % Neutrophils % Lymphocytes % Monocytes % Eosinophils % Basophils % Nucleated RBC % (0.0-0.3) % Absolute Neutrophils (1.2-6.7) 10^3/uL Absolute Lymphocytes (1.2-3.4) 10^3/uL Absolute Monocytes (0.1-0.8) 10^3/uL Absolute Eosinophils (0.0-0.7) 10^3/uL Absolute Basophils (0.0-0.2) 10^3/uL D-Dimer (<500) ng/mlFEU 969 H VBG Lactate (0.6-1.4) mmol/L 0.8 Sodium (136-145) mmol/L Potassium (3.5-5.1) mmol/L Chloride (98-107) mmol/L Carbon Dioxide (21.0-32.0) mmol/L Anion Gap (3-11) mmol/L BUN (7-18) mg/dL Creatinine (0.55-1.02) mg/dL Est GFR (CKD-EPI 2020) (mL/min/1.73m2) Glucose (74-106) mg/dL Calcium (8.5-10.1) mg/dL Total Bilirubin (0.2-1.0) mg/dL AST (15-37) U/L ALT (14-59) U/L Alkaline Phosphatase (46-116) U/L Troponin I (<or=60) ng/L Total Protein (6.4-8.2) g/dL Albumin (3.4-5.0) g/dL COVID-19 Source SARS-CoV-2 (PCR) (Negative) Influenza Type A (PCR) (Negative) Influenza Type B (PCR) (Negative) RSV (PCR) (Negative)
[2022-01-17] MEDS: Omnipaque 350 MG/ML 100 ML BTL IJ (16:27)
[2022-01-17] MEDS: Doxycycline Hyclate 100 MG CAP PO (17:42)
[2022-01-17] MEDS: Normal Saline 1,000 ML 1000 ML IV (17:42)
[2022-01-17 18:21] VITALS: BP 130/80; PULSE 98; O2SAT 95
[2022-01-17 18:31] LABS: Troponin I < 50 ng/L (<or=60)
--- NOTE | 2022-01-18 07:26 | NUR.NOTE ---
Nursing Note: Referral given to Care Management for PCP appt. for pneumonia in 1 week.
--- NOTE | 2022-01-20 11:16 | PDOC.ERCMACT ---
- If Service Date Differs Date of service: 01/18/22 Time of Service: 11:16 Care Management Activity Note Ana is seen in the ED for pneumonia. At the request of ED provider, CM contacts Ana's PCP's office via fax to request they schedule a follow up appointment for Ana within one week.
== END 2022-01-17 18:56 | disposition home or self-care (01) ==
PROVIDERS: Emergency Provider Student in an Organized Health Care Education/Training Program; PCP Nurse Practitioner Acute Care
DX: R55 Syncope and collapse (principal); J18.9 Pneumonia, unspecified organism; R79.89 Other specified abnormal findings of blood chemistry; R91.8 Other nonspecific abnormal finding of lung field; Z20.822 Contact with and (suspected) exposure to COVID-19
CPT/HCPCS: 36410; 36415; 71275; 80053; 87040; 87637; 93005; 96360; 99285; 70450; 83605; 84484; 85025; 85379; 93010; J3490

== ENCOUNTER 2022-06-26 13:44 | Emergency (ER) | payer MEDICAID, SELFPAY ==
[2022-06-26 13:45] VITALS: BP 133/70; PULSE 89; RESP 16; TEMP 37.1; O2SAT 99
--- NOTE | 2022-06-26 13:52 | W.ED.GENAD ---
Discharge Plan Disposition Patient Disposition: Home Condition: Improving Discharge Details Clinical Impression: Acute foreign body of left ear canal Primary Care Provider: Manoj Dee ED Provider: Lan Richmond Home Meds and New Rx's Prescriptions: No Action albuterol sulfate [Proventil HFA] 6.7 GM HFA aerosol inhaler 2 puff Inhalation PRN PRN fluoxetine 20 mg capsule 40 mg PO DAILY amitriptyline 25 mg Tablet 50 mg PO HS calcium carbonate-vitamin D3 [Calcium 500 + D (D3)] 500 mg(1,250mg) -125 unit Tablet 1 tab PO DAILY fluticasone propion-salmeterol [Advair Diskus] 250-50 mcg/dose Blister With Device 1 inh INHALATION 1XD atorvastatin 80 mg Tablet 80 mg PO DAILY nitroglycerin 0.4 mg Tablet, Sublingual 0.4 mg sublingual PRN PRN oxybutynin chloride 5 mg tablet extended release 24hr 5 mg PO HS montelukast 10 mg Tablet 10 mg PO DAILY Patient Comments: does not take doxycycline hyclate 100 mg tablet 100 mg PO BID Qty: 9 0RF Discharge Instructions Instructions: Ear Foreign Body (ED) Additional Instructions: It is recommended that you do not insert anything into your left ear over the next 24 to 48 hours. Monitor for signs of infection, and change the tip of your hearing aid to a new one. If you are having any new or significant worsening of symptoms feel free to return the emergency department otherwise follow-up with your primary care provider as needed. Referrals: Manoj Dee [Primary Care Provider] - (As needed for reassessment) Discharge Data Discharge Date/Time-TO BE ENTERED AT DEPARTURE: 06/26/22 14:03 Medical Decision Making Patient presenting to the emergency department for chief complaint of end of hearing aid stuck in left ear. Patient denies all other symptoms. Physical exam shows plastic hearing aid tip in left ear canal. Cannot see anything past the tip so unaware of what TM and canal looks like otherwise. Manual removal was utilized using alligator clips which patient tolerated appropriately. There was some slight abrasions to the ear canal otherwise TM is intact with no obvious damage noted. Patient does state that she attempted multiple times of getting it out on her own which I do feel may have caused the abrasions as my removal was very benign. Patient was encouraged to not place anything in the left ear canal for the next 2 days and monitor for signs of infection, change the tip of her hearing aid and follow-up as needed. After discussion of diagnosis and plan of care patient has no further needs, questions, or concerns and states clear understanding to return to the emergency department for any worsening symptoms. This documentation was generated using [employer] dictation system, please disregard any oddities of phrase or misspellings. HPI General Mode of arrival: ambulatory. Date/Time Provider Initiated Documentation: 06/26/22 13:52. Limitations to Documentation: no limitations. Information obtained by: patient, family and RN notes reviewed. History of Present Illness 57 year old F presents to the emergency department with the chief complaint of Foreign body left ear, Quality is described as other (Denies pain), Patient started experiencing this hour(s) (1) and it has been constant. No relieving factors improve symptom(s), No exacerbating factors reported . Patient notes no other symptoms.. Patient did receive the following treatments prior to arrival, none Related Data Home Medications Medication Instructions Recorded Confirmed albuterol sulfate 90 mcg/actuation 2 puff inhalation PRN PRN 09/26/12 03/14/22 aerosol inhaler (Proventil HFA) amitriptyline 25 mg tablet 50 mg PO HS 05/13/18 03/14/22 calcium carbonate 500 mg-vitamin 1 tab PO DAILY 05/13/18 03/14/22 D3 3.125 mcg (125 unit) tablet (Calcium) atorvastatin 80 mg tablet 80 mg PO DAILY 03/09/21 03/14/22 montelukast 10 mg tablet 10 mg PO DAILY 03/09/21 03/14/22 nitroglycerin 0.4 mg sublingual 0.4 mg sublingual PRN PRN 03/09/21 03/14/22 tablet oxybutynin chloride 5 mg 5 mg PO HS 03/09/21 03/14/22 tablet,extended release 24 hr fluoxetine 20 mg capsule 40 mg PO DAILY 03/11/21 03/14/22 fluticasone 250 mcg-salmeterol 50 1 inh inhalation 1XD 12/27/21 03/14/22 mcg/dose blistr powdr for inhalation (Advair Diskus) doxycycline hyclate 100 mg tablet 100 mg PO BID #9 tabs 01/17/22 03/14/22 Previous Rx's Medication Instructions Recorded doxycycline hyclate 100 mg tablet 100 mg PO BID #9 tabs 01/17/22 Allergies Allergy/AdvReac Type Severity Reaction Status Date / Time No Known Allergies Allergy Unverified 03/14/22 09:31 General Stated Complaint: EarProblem NIRU: 4 Review of Systems Narrative: 6 systems reviewed and unremarkable except what is marked below. ENT Ears, Nose, Mouth, and Throat: Reports as per HPI, Denies ear discharge and Denies otalgia PFSH All Active Problems (Updated 06/26/22 @ 13:55 by Lan Richmond NP) Acute foreign body of left ear canal (Acute) Medical History (Updated 06/26/22 @ 13:55 by Lan Richmond NP) Abnormal finding on EKG had normal cath in past. Saw Cardiology resently and was cleared for surgery Anxiety Asthma Depression Edentulous GERD (gastroesophageal reflux disease) Hearing deficit History of abnormal cervical Pap smear Jan 2022: HPV+/normal cytology. [place]: no bx. Needs repeat pap Fall 2022 IBS (irritable bowel syndrome) Learning disability Normal colonoscopy (~03/19/21) Postmenopausal bleeding 1 episode in Dec 2021, normal sono so no bx done. Will need bx if any future bleeding. Syncope Surgical History Appendectomy Arthroplasty of knee left cardiac cath pt. states 4-5 days, and f/u with PCP section History of colonoscopy (~03/19/21) stoiber History of hip replacement Laparoscopy, diagnostic with drainage of ovarian cyst Ligation of fallopian tube Replacement of total knee joint right Family History Other Diabetes Essential hypertension Hyperlipidemia Social History Smoking/Tobacco Use Status: Never Smoking risk assessment performed?: Yes Alcohol Intake: never Drug use: Never Substance use type: does not use Do you feel safe at home: Yes Do you feel safe in your relationship?: Yes Female Reproductive History Menstrual Age of Menarche: 13 Duration of menses: 3-5 days control method: none Menopause type: natural History History 3 Para 0 Hx # Term Pregnancies Multiple births Hx # Pregnancies Ectopic pregnancies AB induced Hx Number of Living Children AB spontaneous Exam Const General: cooperative, no acute distress and not ill appearing Orientation: alert, awake and oriented x3 HENMT Head: normal to inspection, normocephalic and atraumatic Ears: hearing grossly normal bilaterally, external ears normal and EAC abnormal foreign body on the left Mouth: moist mucous membranes Resp Effort & Inspection: normal respiratory effort, able to speak in complete sentences and no respiratory distress Skin General skin exam: no rashes or lesions noted Neuro General: patient alert, patient awake, patient oriented x3, moves all extremities and no focal motor deficits Course Vital Signs Vital signs: Vital Signs Temperature 37.1 C 06/26/22 13:45 Pulse 89 06/26/22 13:45 Respiratory Rate 16 06/26/22 13:45 Blood Pressure 133/70 06/26/22 13:45 Pulse Oximetry 99 06/26/22 13:45 Temperature 37.1 C 06/26/22 13:45 Temperature Source Skin 06/26/22 13:45 Pulse 89 06/26/22 13:45 Respiratory Rate 16 06/26/22 13:45 Respiratory Effort Normal 06/26/22 13:51 Blood Pressure 133/70 06/26/22 13:45 Blood Pressure Position Sitting 06/26/22 13:45 Pulse Oximetry 99 06/26/22 13:45 Oxygen Delivery Method Room Air 06/26/22 13:45 Oxygen Flow Rate 0 06/26/22 13:45 Pain Level 4 06/26/22 13:45 Procedures FB Removal Ear Location: ear canal (L) Foreign Body Suspected: plastic bead/other plastic TM intact pre-procedure: unable to visualize Foreign Body Removed: yes Foreign Body Removal Technique: instrumentation Tympanic Membrane Intact: Yes Patient Tolerated Procedure: well and no complications
== END 2022-06-26 14:03 | disposition home or self-care (01) ==
PROVIDERS: Emergency Provider Nurse Practitioner Family; PCP Nurse Practitioner Acute Care
DX: S00.452A Superficial foreign body of left ear, initial encounter (principal); J45.909 Unspecified asthma, uncomplicated; X58.XXXA Exposure to other specified factors, initial encounter
CPT/HCPCS: 69200; 99281; 99282

== ENCOUNTER 2023-03-27 11:49 | Outpatient (REF) | payer MEDICAID, SELFPAY ==
--- NOTE | 2023-03-27 10:00 | PAPFT_PTH ---
PATIENT: Ana Pollock LOC: [facility] U#:[id number] AGE/SX: 58/F ROOM: RE03/27/[address]: Ani Purvis MD : 1965 BED: DIS: 03/27/2023 SPEC #: [id number] RECD: 03/27/23 12:53 STATUS: CHEN REQ #: [id number] CORNELIUS: 03/27/23 10:[address]: Ani Purvis DEPT: [facility] Cytology RECD BY: Jada Lacy ENTERED: 03/27/23 12:53 SP TYPE: PAPFT OTHR DR: Manoj Dee Tissues: 1 - CX/ENDOCX FOR PAP SMEARS Procedures: PAP THIN PREP/UVM Screening HPV DNA PROBE Comments:
== END 2023-03-27 11:50 | disposition home or self-care (01) ==
LOC: LBN 11:49
PROVIDERS: PCP Nurse Practitioner Acute Care; Visit Provider Obstetrics & Gynecology
DX: Z12.4 Encounter for screening for malignant neoplasm of cervix (principal); Z11.51 Encounter for screening for human papillomavirus (HPV); R87.610 Atypical squamous cells of undetermined significance on cytologic smear of cervix (ASC-US)
CPT/HCPCS: 88142; 87624

== ENCOUNTER 2024-05-14 13:52 | Outpatient (REF) | payer MEDICAID, SELFPAY ==
--- NOTE | 2024-05-14 13:30 | PAPFT_PTH ---
PATIENT: Ana Pollock LOC: [facility] U#:[id number] AGE/SX: 59/F ROOM: RE05/14/[address]: Ani Purvis MD : 1965 BED: DIS: 05/14/2024 SPEC #: [id number] RECD: 05/14/24 17:52 STATUS: CHEN RECherelle #: [id number] CORNELIUS: 05/14/24 13:[address]: Ani Purvis DEPT: [facility] Cytology RECD BY: Jada Lacy ENTERED: 05/14/24 17:53 SP TYPE: PAPFT OTHR DR: Manoj Dee Tissues: 1 - CX/ENDOCX FOR PAP SMEARS Procedures: PAP THIN PREP/UVM Screening HPV DNA PROBE Comments: [id number] (HPV 16 & 18/45)
== END 2024-05-14 13:53 | disposition home or self-care (01) ==
LOC: LBN 13:52
PROVIDERS: PCP Nurse Practitioner Acute Care; Visit Provider Obstetrics & Gynecology
DX: Z11.51 Encounter for screening for human papillomavirus (HPV) (principal); Z01.419 Encounter for gynecological examination (general) (routine) without abnormal findings
CPT/HCPCS: 88142; 87624

== ENCOUNTER 2024-06-18 03:55 | Emergency (ER) | payer MEDICAID, SELFPAY ==
[2024-06-18] VITALS (26 sets, daily range): BP systolic 107–141; BP diastolic 63–88; PULSE 80–98; RESP 12–26; TEMP 36.8; O2SAT 93–100
--- NOTE | 2024-06-18 03:45 | RT.EKG_ITS ---
APPROVED REPORT Exam: Resting ECG Reason for Exam: sob Patient Location: E HR:82 bpm ECG Measurements Heart Rate 82 AXIS IA 172 P 23 QRSd 89 QRS 27 QT 393 T 13 QTc 461 Conclusion Sinus rhythm...normal P axis, V-rate 60- 99 Nonspecific repol abnormality, diffuse leads...ST dep, T flat/neg, ant/lat/inf However, these findings are noted on prior ekgs
--- NOTE | 2024-06-18 04:00 | DI.RAD_ITS ---
Exam(s) XR PORTABLE CHEST AP EXAM: XR PORTABLE CHEST AP CLINICAL HISTORY: sob, cough. TECHNIQUE: 2D digital imaging was performed. COMPARISON: CR,XR XR PORTABLE CHEST AP from 09/26/2021 FINDINGS: Single AP portable view. Heart size is upper normal. The mediastinum is not widened. No confluent infiltrates nor pleural effusions. No pulmonary edema. Regional bones unremarkable. IMPRESSION: No acute pulmonary findings on this single AP portable view of the chest. DATA REPOSITORY: RADIATION DOSE DELIVERED:
--- NOTE | 2024-06-18 04:06 | ED.GENADUL_ITS ---
Discharge Plan Disposition Patient Disposition: Home Condition: Good Discharge Details Clinical Impression: Viral URI with cough, Pleurisy Primary Care Provider: Manoj Dee ED Provider: Gene Alberts Home Meds and New Rx's Prescriptions: New benzonatate 100 mg capsule 100 mg PO TID Qty: 30 0RF No Action buspirone 5 mg tablet 5 mg PO TID naproxen 250 mg tablet 250 mg PO BID PRN nystatin 100,000 unit/gram powder 1 applic topical BID Qty: 30 2RF albuterol sulfate [Proventil HFA] 6.7 GM HFA aerosol inhaler 2 puff Inhalation PRN PRN fluoxetine 20 mg capsule 40 mg PO DAILY amitriptyline 25 mg Tablet 50 mg PO HS calcium carbonate-vitamin D3 [Calcium 500 + D (D3)] 500 mg(1,250mg) -125 unit Tablet 1 tab PO DAILY fluticasone propion-salmeterol [Advair Diskus] 250-50 mcg/dose Blister With Device 1 inh INHALATION 1XD atorvastatin 80 mg Tablet 80 mg PO DAILY nitroglycerin 0.4 mg Tablet, Sublingual 0.4 mg sublingual PRN PRN montelukast 10 mg Tablet 10 mg PO DAILY Patient Comments: does not take Discharge Instructions Instructions: Cough, Adult ED Additional Instructions: At this time your workup demonstrates no evidence of pneumonia, heart attack, blood clots or other significant abnormality. I suspect your symptoms are a component of mild reactive airway disease and a viral etiology. Please continue to take your inhaler, 2 puffs every 6 hours. Take the cough pill as prescribed. It has been sent to your pharmacy on file. If you notice any worsening of your symptoms, or any new symptoms such as vomiting, diarrhea, fever, chills, shortness of breath, chest pain, numbness, weakness, or fainting , please return immediately to the emergency department for reevaluation. Please follow up with your primary care provider as soon as possible for reassessment and reevaluation. As always, it was a pleasure participating in your medical care today. Referrals: Manoj Dee [Primary Care Provider] - HPI General Date/Time Provider Initiated Documentation: 06/18/24 03:56 . HPI Narrative: This is a 59-year-old female with a past medical history of asthma, irritable bowel syndrome, GERD, atypical EKG findings with chronic ST depression leading to 2 cardiac catheterizations without showing any evidence of disease or need for stenting, who presents today for evaluation of shortness of breath and chest pain. Patient states that for the last day or 2 she has had a cough and congestion, and tonight she developed worsening shortness of breath with some associated chest tightness. Worse when she breathes. She also admits to mild achiness in her calves bilaterally. She denies fever or chills. 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 She denies hemoptysis long trips surgeries or procedures. She denies numbness tingling or weakness. No tearing or ripping sensation. No heaviness on her chest. No other complaints at this time. Related Data Home Medications ?Medication ?Instructions ?Recorded ?Confirmed albuterol sulfate 90 mcg/actuation 2 puff inhalation PRN PRN 09/26/12 06/18/24 aerosol inhaler (Proventil HFA) amitriptyline 25 mg tablet 50 mg PO HS 05/13/18 06/18/24 calcium 500 mg (as 1 tab PO DAILY 05/13/18 06/18/24 carbonate)-vitamin D3 3.125 mcg (125 unit) tablet (Calcium) atorvastatin 80 mg tablet 80 mg PO DAILY 03/09/21 06/18/24 montelukast 10 mg tablet 10 mg PO DAILY 03/09/21 06/18/24 nitroglycerin 0.4 mg sublingual 0.4 mg sublingual PRN PRN 03/09/21 06/18/24 tablet fluoxetine 20 mg capsule 40 mg PO DAILY 03/11/21 06/18/24 fluticasone 250 mcg-salmeterol 50 1 inh inhalation 1XD 12/27/21 06/18/24 mcg/dose blistr powdr for inhalation (Advair Diskus) buspirone 5 mg tablet 5 mg PO TID 05/14/24 06/18/24 naproxen 250 mg tablet 250 mg PO BID PRN 05/14/24 06/18/24 nystatin 100,000 unit/gram topical 1 applic topical BID #30 grams 05/14/24 06/18/24 powder benzonatate 100 mg capsule 100 mg PO TID #30 caps 06/18/24 Previous Rx's ?Medication ?Instructions ?Recorded nystatin 100,000 unit/gram topical 1 applic topical BID #30 grams 05/14/24 powder benzonatate 100 mg capsule 100 mg PO TID #30 caps 06/18/24 Allergies Allergy/AdvReac Type Severity Reaction Status Date / Time No Known Allergies Allergy Unverified 06/18/24 04:03 General Stated Complaint: RespSymp NIRU: 3 Exam Narrative Exam Narrative: 1.Const: Well-nourished, Well-developed, appearing stated age 2.Eyes: PERRL, no conjunctival injection, and symmetrical lids. 3.ENT: Atraumatic external nose and ears. Moist MM. Neck: Symmetric, trachea midline, No thyromegaly. 4.CVS: +S1/S2, Peripheral pulses 2+ and equal in all extremities. Brisk capillary refill in all extremities. 5.RESP: Unlabored respiratory effort. minimal wheeze in the base. 6.GI: Soft, Nontender/Nondistended, No hepatosplenomegaly. No guarding or rebound. 7.MSK: Normocephalic/Atraumatic, Extremities w/o deformity or ttp No cyanosis or clubbing, Normal movement of all extremities 8.Skin: Warm, Dry. No rashes or lesions. 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 Sensation grossly intact, no focal neurologic deficits. 10.Psych: (AAO) x3. Appropriate mood and affect Course Vital Signs Vital signs: Vital Signs Temperature 36.8 C 06/18/24 03:58 Pulse 98 H 06/18/24 03:58 Respiratory Rate 20 06/18/24 03:58 Blood Pressure 128/88 06/18/24 03:58 Pulse Oximetry 98 06/18/24 03:58 Temperature 36.8 C 06/18/24 03:58 Temperature Source Tympanic 06/18/24 03:58 Pulse 98 H 06/18/24 03:58 Respiratory Rate 20 06/18/24 03:58 Blood Pressure 128/88 06/18/24 03:58 Blood Pressure Position Supine 06/18/24 03:58 Pulse Oximetry 98 06/18/24 03:58 Oxygen Delivery Method Room Air 06/18/24 03:58 Oxygen Flow Rate 0 06/18/24 03:58 Medical Decision Making This is a 59-year-old female with a past medical history of asthma, irritable bowel syndrome, GERD, atypical EKG findings with chronic ST depression leading to 2 cardiac catheterizations without showing any evidence of disease or need for stenting, who presents today for evaluation of shortness of breath and chest pain. Patient states that for the last day or 2 she has had a cough and congestion, and tonight she developed worsening shortness of breath with some associated chest tightness. Worse when she breathes. She also admits to mild achiness in her calves bilaterally. She denies fever or chills. 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 She denies hemoptysis long trips surgeries or pr ocedures. She denies numbness tingling or weakness. No tearing or ripping sensation. No heaviness on her chest. No other complaints at this time. Exam demonstrates slightly short of breath appearing female, minimal wheezes in the bases. Oxygen saturation excellent. Pulses intact. Concern for COPD/asthma, less likely ACS or PE. Will evaluate for these etiologies given breathing treatment, monitor closely and reassess. EKG does demonstrate diffuse T wave inversions and depressions in the anterior lateral leads but this appears consistent with prior EKGs. 6:29 AM Laboratory workup has returned, no white count or bandemia or significant left shift. D-dimer mildly elevated, CT was ordered and shows no evidence of pulmonary embolism. There is some cholelithiasis but no other significant abnormality. No signs of pneumonia. VBG is stable aside from mild alkalosis. Electrolytes normal. COVID flu and RSV testing negative. Serial troponins are normal. proBNP normal at 320 suggesting no signs of significant heart strain. Patient feels significantly improved. Suspect viral etiology at this time as a cause of her symptoms as her symptoms are otherwise notably clinically inc onsistent with ACS, pneumothorax, pneumonia, PE or dissection. With the unchanged EKG findings, the lack of exertional chest pain, and the presence of a runny nose, congestion and cough I do suspect that her symptoms are outside sales account representative of a mild acute viral infection instead of a life-threatening cardiac etiology. Patient will be discharged home. However we did discuss red flags for which to immediately return. I have extensively reviewed the treatment plan and discharge instructions with the patient. I have addressed all patient concerns at this time. The patient was made aware of what symptoms to monitor for that would warrant a return to the emergency department. Discussed the plan with the patient, they demonstrate verbal understanding and agreement with our assessment and plan at this time. The documentation in this chart was dictated using [employer] dictation software. Please excuse any dictation errors. VASCULATURE: Pulmonary arteries: Normal. No pulmonary emboli. Aorta: No aortic aneurysm. No aortic dissection. Celiac trunk and mesenteric arteries: No occlusion or significant stenosis. Renal arteries: No occlusion or significant stenosis. Right iliac arteries: No occlusion or significant stenosis. Left iliac arteries: No occlusion or significant stenosis. CHEST: Lungs: Mild dependent changes at the lung bases. No acute lung infiltrates. No suspicious pulmonary nodules. Pleural spaces: Unremarkable. No pneumothorax. No pleural effusion. Heart: Mild cardiomegaly. Coronary arteries: No coronary artery calcification noted. ABDOMEN AND PELVIS: Liver: No mass. Gallbladder and biliary ducts: Unremarkable. No calcified stones. No ductal dilation. Pancreas: Unremarkable. No mass. No ductal dilation. Spleen: Unremarkable. No splenomegaly. Adrenal glands: Unremarkable. No mass. Kidneys and ureters: Unremarkable. No solid mass. No hydronephrosis. Stomach and bowel: Unremarkable. No obstruction. No mucosal thickening. Appendix: No evidence of appendicitis. Intraperitoneal space: Unremarkable. No free air. No significant fluid collection. Urinary bladder: Unremarkable. No mass. Reproductive: Unremarkable as visualized. Lymph nodes: Unremarkable. No enlarged lymph nodes. Bones/joints: Unremarkable. No acute fracture. Soft tissues: Unremarkable. Other findings: Gallstones are noted. IMPRESSION: 1. No evidence of pulmonary embolism. 2. Cholelithiasis. Thank you for allowing us to participate in the care of your patient. Dictated and Authenticated by: Clare Arevalo MD 06/18/2024 6:30 AM Eastern Time ([place] & [place]) Quality:SDOH Health Related Social Needs: No Data to Display PFSH All Active Problems (Updated 06/18/24 @ 06:52 by Gene Alberts DO) Pleurisy (Acute) Viral URI with cough (Acute) Medical History (Updated 06/18/24 @ 06:52 by Gene Alberts DO) History of abnormal cervical Pap smear Jan 2022: HPV+/normal cytology. [place]: no bx. Needs repeat pap Fall 2022 Syncope Postmenopausal bleeding 1 episode in Dec 2021, normal sono so no bx done. Will need bx if any future bleeding. Normal colonoscopy (~03/19/21) Asthma Hearing deficit Edentulous IBS (irritable bowel syndrome) GERD (gastroesophageal reflux disease) Depression Anxiety Abnormal finding on EKG had normal cath in past. Saw Cardiology resently and was cleared for surgery Learning disability Surgical History Appendectomy Arthroplasty of knee left cardiac cath pt. states 4-5 days, and f/u with PCP section History of colonoscopy (~03/19/21) stoiber History of hip replacement Laparoscopy, diagnostic with drainage of ovarian cyst Ligation of fallopian tube Replacement of total knee joint right Family History Other Diabetes Essential hypertension Hyperlipidemia Social History Smoking/Tobacco Use Status: Never Smoking risk assessment performed?: Yes Alcohol Intake: never Drug use: Never Substance use type: does not use Do you feel safe at home: Yes Do you feel safe in your relationship?: Yes Female Reproductive History Menstrual Age of Menarche: 13 Duration of menses: 3-5 days control method: none Menopause type: natural History History 3 Para 0 Hx # Term Pregnancies Multiple births Hx # Pregnancies Ectopic pregnancies AB induced Hx Number of Living Children AB spontaneous
[2024-06-18] MEDS: Albuterol/Ipratropium 3 ML UPD VIAL UPD (04:14)
[2024-06-18 04:18] LABS: BE (Venous) 1 mmol/L (-2-3); HCO3 (Venous) 26 mmol/L (23-28); O2 Sat (Venous) 69 %; TCO2 (Venous) 23 mmol/L (24-29); pCO2 (Venous) 39 mmHg (41-51); pH (Venous) 7.43 (7.31-7.41); pO2 (Venous) 34 mmHg
[2024-06-18 04:20] LABS: Abs Immature Grans 0.04 10^3/uL (0.0-0.06); Absolute Basophil Count 0.08 10^3/uL (0.0-0.2); Absolute Eosinophil Count 0.14 10^3/uL (0.0-0.7); Absolute Lymphocyte Count 2.37 10^3/uL (1.2-3.4); Absolute Monocyte Count 0.45 10^3/uL (0.1-0.8); Absolute Neutrophil Count 7.55 10^3/uL (1.2-6.7); Basophils % 0.8 %; Eosinophils % 1.3 %; HCT 40.1 % (36.0-46.0); HGB 13.1 g/dL (11.2-15.7); Immature Grans % 0.4 %; Lymphocytes % 22.3 %; MCH 28.7 pg (27.0-33.0); MCHC 32.7 % (32.0-36.0); MCV 88 fL (80-95); MPV 9.4 fL (8.0-11.0); Monocytes % 4.2 %; Platelet Count 314 10^3/uL (130-400); RBC 4.57 10^6/uL (3.93-5.22); RDW 12.8 % (11.7-14.6); RDW-SD 41.1 fL; WBC 10.63 10^3/uL (4.4-10.8)
[2024-06-18 04:39] LABS: ALT 14 U/L (14-59); Alkaline Phosphatase 110 U/L (46-116); BUN 16 mg/dL (7-18); Total Protein 7.1 g/dL (6.4-8.2)
[2024-06-18 04:42] LABS: PTT Activated 25.5 sec (20.6-30.2); Prothrombin Time 10.4 sec (9.1-11.1)
[2024-06-18 04:44] LABS: D-Dimer 554 ng/mlFEU (<500)
[2024-06-18 04:52] LABS: AST 9 U/L (15-37); Albumin 3.2 g/dL (3.4-5.0); Anion Gap 9.7 mmol/L (3-11); Bilirubin, Total 0.39 mg/dL (0.2-1.0); CO2 26.3 mmol/L (21.0-32.0); Chloride 106 mmol/L (98-107); Glucose 102 mg/dL (74-106); Potassium 3.5 mmol/L (3.5-5.1); Sodium 142 mmol/L (136-145); Troponin I < 4 ng/L (<or=51)
--- NOTE | 2024-06-18 05:00 | DI.CT_ITS ---
Exam(s) CT THORAX ABD/PEL CTA EXAM: CT THORAX ABD/PEL CTA CLINICAL HISTORY: elevated dimer, eval for PE. TECHNIQUE: Imaging Protocol: Axial CT angiography was performed with multi-slice acquisition and m ulti-planar and/or 3D reconstructions. CONTRAST MATERIAL: Intravenous: Omnipaque 350 Contrast volume:100 mL Oral: / no COMPARISON: CT CT ABDOMEN PELVIS W from 03/09/[address] CHEST PE CTA from 01/17/2022 FINDINGS: CHEST: Pulmonary Arteries: No evidence of filling defect to suggest pulmonary emboli. Tracheobronchial tree: Patent where visualized. Mediastinum and Mellissa: No dominant adenopathy or fluid collection. Pulmonary parenchyma: No consolidation or dominant measurable mass. Expiratory changes. Pleura: No effusion or pneumothorax. Heart: The heart is not dilated. No coronary artery calcifications are seen. Aorta: Thoracic aorta non-dilated. Bones: Normal. Tubes, Catheters, and Lines: ABDOMEN AND PELVIS: Abdomen: Celiac axis/mesenteric arteries: No evidence of occlusion or significant stenosis. Renal Arteries: No evidence of occlusion or significant stenosis. There is a single renal artery per fusing each kidney. Aorta: No evidence of occlusion or significant stenosis. No aneurysm or dissection. Pelvis: Iliac Arteries: No evidence of occlusion or significant stenosis. Common Femoral Arteries: No evidence of occlusion or significant stenosis. ABDOMEN: Liver: Normal density. No measurable mass. Portal, Superior Mesenteric, and Splenic Veins: Unremarkable. Gallbladder and Biliary Tract: 2 calcified stones. No biliary dilation. Pancreas: Normal density, no abnormal calcifications or inflammatory process. Spleen: Normal. Adrenals: No masses seen. Kidneys: Normal size, contour and axis. No radiodense stones or obstructive uropathy. No masses seen. Bowel: No obstruction or bowel wall thickening. Appendix is not visualized. Peritoneal Cavity: No ascites, collection or mesenteric inflammatory response. Lymph Nodes: Within normal limits. Bones: Unremarkable. Soft Tissues: Unremarkable. PELVIS: Bladder: Symmetric distention, no gross wall thickening. Reproductive Organs: Unremarkable as visualized. Lymph Nodes: Within normal limits. Bones: Left hip prosthesis. IMPRESSION: No evidence of pulmonary emboli or other acute abnormality in the chest. No acute abnormality in the abdomen or pelvis. Cholelithiasis. RADIATION DOSE DELIVERED: Total DLP DATA REPOSITORY: All CT scans at this facility are submitted to the National Radiology Data Registry (NRDR) Dose Index Registry (DIR) with the [employer] (ACR). RADIATION OPTIMIZATION: All CT scans at this facility use at least one of these dose optimization te chniques: automated exposure control; mA and/or kV adjustment per patient size (includes targeted exa ms where dose is matched to clinical indication); or iterative reconstruction.
[2024-06-18 05:01] LABS: COVID-19 PCR Negative (Negative); Influenza A PCR Negative (Negative); Influenza B PCR Negative (Negative); RSV PCR Negative (Negative)
[2024-06-18 05:06] LABS: Source Nasopharynx
[2024-06-18] MEDS: Omnipaque 350 MG/ML 100 ML BTL IJ (05:06)
[2024-06-18] MEDS: Normal Saline - Diluent 50 ML VIAL IJ (05:08)
[2024-06-18] MEDS: Normal Saline Flush 10 ML SYR IVP (05:09)
[2024-06-18 05:10] LABS: NT-proBNP 320 pg/mL (<300)
--- NOTE | 2024-06-18 05:12 | DI.VRAD_ITS ---
PROCEDURE INFORMATION: Exam: XR Chest Exam date and time: 06/18/2024 4:24 AM Age: 59 years old Clinical indication: Cough and shortness of breath; Cough, SOB TECHNIQUE: Imaging protocol: Radiologic exam of the chest. Views: 1 view. COMPARISON: CT CHEST PE CTA 01/17/2022 4:19 PM FINDINGS: Lungs: Well inflated. No consolidation. Pleural spaces: Unremarkable. No pleural effusion. No pneumothorax. Heart/Mediastinum: Unremarkable. No cardiomegaly. Bones/joints: Unremarkable. IMPRESSION: No acute findings. Dictated and Authenticated by: Gianluca Coon MD. Orderin eLxus Mills MD
[2024-06-18 05:35] LABS: Troponin I 4 ng/L (<or=51)
--- NOTE | 2024-06-18 06:30 | DI.VRAD_ITS ---
Addendum created by Clare Arevalo MD on 06/18/2024 6:33:02 AM EST: ADDENDUM: Additionally noted is elongation of the right hepatic lobe. The liver measures 21.6 cm in length. Correlate with LFTs. Left total hip arthroplasty also noted. Imaged portions of the hardware intact and in good position, without evidence of loosening. Initial report created on 06/18/2024 6:30:24 AM EST: PROCEDURE INFORMATION: Exam: CTA Chest With Contrast CTA Abdomen and Pelvis With Contrast Exam date and time: 06/18/2024 5:26 AM Age: 59 years old Clinical indication: Abdominal pain; Generalized; Other: Elevated d-dimer; Prior surgery; Surgery date: 6+ months; Surgery type: Hip; Elevated dimer, eval for pe, mid abd pain TECHNIQUE: Imaging protocol: Computed tomographic angiography of the chest with contrast. Exam focused on the arteries. Computed tomographic angiography of the abdomen and pelvis with contrast. Exam focused on the arteries. 3D rendering (Not supervised by radiologist): MIP and/or 3D reconstructed images were created by the technologist. Radiation optimization: All CT scans at this facility use at least one of these dose optimization techniques: automated exposure control; mA and/or kV adjustment per patient size (includes targeted exams where dose is matched to clinical indication); or iterative reconstruction. Contrast material: OMNIPAQUE 350; Contrast volume: 100 ml; Contrast route: INTRAVENOUS (IV); COMPARISON: CT CHEST PE CTA 01/17/2022 4:19 PM FINDINGS: VASCULATURE: Pulmonary arteries: Normal. No pulmonary emboli. Aorta: No aortic aneurysm. No aortic dissection. Celiac trunk and mesenteric arteries: No occlusion or significant stenosis. Renal arteries: No occlusion or significant stenosis. Right iliac arteries: No occlusion or significant stenosis. Left iliac arteries: No occlusion or significant stenosis. CHEST: Lungs: Mild dependent changes at the lung bases. No acute lung infiltrates. No suspicious pulmonary nodules. Pleural spaces: Unremarkable. No pneumothorax. No pleural effusion. Heart: Mild cardiomegaly. Coronary arteries: No coronary artery calcification noted. ABDOMEN AND PELVIS: Liver: No mass. Gallbladder and biliary ducts: Unremarkable. No calcified stones. No ductal dilation. Pancreas: Unremarkable. No mass. No ductal dilation. Spleen: Unremarkable. No splenomegaly. Adrenal glands: Unremarkable. No mass. Kidneys and ureters: Unremarkable. No solid mass. No hydronephrosis. Stomach and bowel: Unremarkable. No obstruction. No mucosal thickening. Appendix: No evidence of appendicitis. Intraperitoneal space: Unremarkable. No free air. No significant fluid collection. Urinary bladder: Unremarkable. No mass. Reproductive: Unremarkable as visualized. Lymph nodes: Unremarkable. No enlarged lymph nodes. Bones/joints: Unremarkable. No acute fracture. Soft tissues: Unremarkable. Other findings: Gallstones are noted. IMPRESSION: 1. No evidence of pulmonary embolism. 2. Cholelithiasis. Dictated and Authenticated by: Clare Arevalo MD. Orderin Lexus Mills MD
[2024-06-18] MEDS: Dexamethasone 10 MG/ML VIAL IVP (06:57)
== END 2024-06-18 07:17 | disposition home or self-care (01) ==
PROVIDERS: Emergency Provider Student in an Organized Health Care Education/Training Program; PCP Nurse Practitioner Acute Care
DX: J06.9 Acute upper respiratory infection, unspecified (principal); B97.89 Other viral agents as the cause of diseases classified elsewhere; R09.1 Pleurisy; R94.31 Abnormal electrocardiogram [ECG] [EKG]
CPT/HCPCS: 36415; 71275; 80053; 82805; 87637; 93005; 94640; 96374; 99285; 71045; 74174; 83880; 84484; 85025; 85379; 85610; 85730; 93010; J1100; J3490; J7620

== ENCOUNTER 2024-08-19 12:27 | Emergency (ER) | payer MEDICAID, SELFPAY ==
[2024-08-19] VITALS (25 sets, daily range): BP systolic 120–177; BP diastolic 60–152; PULSE 62–110; RESP 18; O2SAT 91–100
--- NOTE | 2024-08-19 12:30 | DI.RAD_ITS ---
Exam(s) XR SHOULDER LT COMPLETE 2+V EXAM: XR SHOULDER LT COMPLETE 2+V CLINICAL HISTORY: pain s/p fall. TECHNIQUE: 2D digital imaging was performed. COMPARISON: No exams were available for comparison FINDINGS: 3 views There is an acute comminuted fracture of the left humeral head-neck with avulsion of the greater tube rosity also evident. Mild impaction. No dislocation of glenohumeral joint. AC joint and clavicle appear intact as does the coracoid process. No osseous lesions IMPRESSION: There is an acute comminuted displaced fracture of the humeral head-neck. The greater tuberosity is avulsed/displaced. DATA REPOSITORY: RADIATION DOSE DELIVERED:
--- NOTE | 2024-08-19 12:30 | DI.RAD_ITS ---
Exam(s) XR ELBOW LT LIMITED EXAM: XR ELBOW LT LIMITED CLINICAL HISTORY: pain s/p fall. TECHNIQUE: 2D digital imaging was performed. COMPARISON: No exams were available for comparison FINDINGS: Single lateral view No evidence of obvious fracture nor prominent elbow joint effusion and no swelling of the olecranon b ursa. IMPRESSION: No obvious fracture evident on this limited single lateral view of the elbow. DATA REPOSITORY: RADIATION DOSE DELIVERED:
--- NOTE | 2024-08-19 12:42 | ED.GENADUL_ITS ---
Discharge Plan Disposition Patient Disposition: Home Condition: Stable Discharge Details Clinical Impression: Closed left humeral fracture, Contusion of elbow, left Primary Care Provider: Manoj Dee ED Provider: Mike Chauhan Home Meds and New Rx's Prescriptions: New oxycodone 5 mg tablet 5 mg PO Q6H PRNQty: 12 0RF Continued buspirone 5 mg tablet 5 mg PO TID naproxen 250 mg tablet 250 mg PO BID PRN nystatin 100,000 unit/gram powder 1 applic topical BID Qty: 30 2RF albuterol sulfate [Proventil HFA] 6.7 GM HFA aerosol inhaler 2 puff Inhalation PRN PRN fluoxetine 20 mg capsule 40 mg PO DAILY amitriptyline 25 mg Tablet 50 mg PO HS calcium carbonate-vitamin D3 [Calcium 500 + D (D3)] 500 mg(1,250mg) -125 unit Tablet 1 tab PO DAILY fluticasone propion-salmeterol [Advair Diskus] 250-50 mcg/dose Blister With Device 1 inh INHALATION 1XD atorvastatin 80 mg Tablet 80 mg PO DAILY nitroglycerin 0.4 mg Tablet, Sublingual 0.4 mg sublingual PRN PRN montelukast 10 mg Tablet 10 mg PO DAILY Patient Comments: does not take benzonatate 100 mg capsule 100 mg PO TID Qty: 30 0RF Discharge Instructions Additional Instructions: You have a broken proximal humerus fracture. This will require surgery. Call orthopedics to arrange for a follow-up appointment. You can take 600 mg of ibuprofen and 1000 mg of acetaminophen every 6 hours as needed. If you need additional pain medicine take the oxycodone. Return to the emergency department if you have severe uncontrolled pain or feel more ill Referrals: Ever Guerin MD [ [facility] STAFF PHYSICIAN] - [facility] General Mode of arrival: EMS . Date/Time Provider Initiated Documentation: 08/19/24 12:34 . Limitations to Documentation: no limitations . Information obtained by: patient . History of Present Illness 59 year old F presents to the emergency department with the chief complaint of left shoulder and elbow pain, described as moderate, Quality is described as aching, and is localized to the left and upper extremity. Patient reports no radiation. Patient started experiencing this hour(s) (1) and it has been constant. Rest improves symptom(s), Movement worsens symptoms . Patient notes no other symptoms.. Related Data Home Medications ?Medication ?Instructions ?Recorded ?Confirmed albuterol sulfate 90 mcg/actuation 2 puff inhalation PRN PRN 09/26/12 06/18/24 aerosol inhaler (Proventil HFA) amitriptyline 25 mg tablet 50 mg PO HS 05/13/18 06/18/24 calcium 500 mg (as 1 tab PO DAILY 05/13/18 06/18/24 carbonate)-vitamin D3 3.125 mcg (125 unit) tablet (Calcium) atorvastatin 80 mg tablet 80 mg PO DAILY 03/09/21 06/18/24 montelukast 10 mg tablet 10 mg PO DAILY 03/09/21 06/18/24 nitroglycerin 0.4 mg sublingual 0.4 mg sublingual PRN PRN 03/09/21 06/18/24 tablet fluoxetine 20 mg capsule 40 mg PO DAILY 03/11/21 06/18/24 fluticasone 250 mcg-salmeterol 50 1 inh inhalation 1XD 12/27/21 06/18/24 mcg/dose blistr powdr for inhalation (Advair Diskus) buspirone 5 mg tablet 5 mg PO TID 05/14/24 06/18/24 naproxen 250 mg tablet 250 mg PO BID PRN 05/14/24 06/18/24 nystatin 100,000 unit/gram topical 1 applic topical BID #30 grams 05/14/24 06/18/24 powder benzonatate 100 mg capsule 100 mg PO TID #30 caps 06/18/24 oxycodone 5 mg tablet 5 mg PO Q6H PRN #12 tabs 08/19/24 Previous Rx's ?Medication ?Instructions ?Recorded nystatin 100,000 unit/gram topical 1 applic topical BID #30 grams 05/14/24 powder benzonatate 100 mg capsule 100 mg PO TID #30 caps 06/18/24 oxycodone 5 mg tablet 5 mg PO Q6H PRN #12 tabs 08/19/24 Allergies Allergy/AdvReac Type Severity Reaction Status Date / Time No Known Allergies Allergy Unverified 06/18/24 04:03 General Stated Complaint: Fall/Non TraumaCriteria NIRU: 3 Review of Systems All systems reviewed & are unremarkable except as noted in HPI and below Constitutional Constitutional: Denies chills, Denies fever(s) and Denies weakness Cardiovascular Cardiovascular: Denies chest pain and Denies dyspnea Respiratory Respiratory: Denies cough and Denies dyspnea Gastrointestinal Gastrointestinal: Denies abdominal pain, Denies nausea and Denies vomiting Musculoskeletal Musculoskeletal: Denies numbness Neurologic Neurologic: Denies numbness and Denies weakness Psychiatric Psychiatric: Denies depression Exam Const General: no acute distress Orientation: alert HENWV Head: normal to inspection Ears: external ears normal General nose exam: external nose normal Mouth: moist mucous membranes Eyes General: appearance normal, both eyes and all related structures Neck Neck: normal visual inspection Resp Effort & Inspection: normal respiratory effort and able to speak in complete sentences Cardio Rate: regular rate Skin General skin exam: no rashes or lesions noted Neuro General: patient alert and patient oriented x3 Extrem General: capillary refill normal Psych Mental Status: mental status grossly normal Course Vital Signs Vital signs: Vital Signs Pulse 68 08/19/24 12:30 Respiratory Rate 18 08/19/24 12:30 Blood Pressure 120/70 08/19/24 12:30 Pulse Oximetry 98 08/19/24 12:30 Pulse 68 08/19/24 12:30 Respiratory Rate 18 08/19/24 12:30 Blood Pressure 120/70 08/19/24 12:30 Blood Pressure Position Supine 08/19/24 12:30 Pulse Oximetry 98 08/19/24 12:30 Oxygen Delivery Method Room Air 08/19/24 12:30 Oxygen Flow Rate 0 08/19/24 12:30 Pain Level 5 08/19/24 12:33 Medical Decision Making 59-year-old female comes in after she was walking a parking lot and tripped on an object that was on the back of a pickup truck causing her to fall and land on her left shoulder. She denies hitting her head or loss of consciousness. She denies any preceding symptoms in the fall states was purely mechanical from a trip. She has tenderness in the left anterior shoulder and the left lateral elbow. She has intact distal sensation and pulses. She has no signs of trauma to the head and no midline C-spine tenderness. Denies any chest or abdominal pain. I suspect fracture versus contusion will obtain x-rays to further evaluate. Elbow x-ray unremarkable, she does have a humeral fracture. Patient stable has no new pain elsewhere. On-call orthopedist Dr. Olivia reviewed the films and states only a sling is needed at this time but will need follow-up surgery. She is stable for discharge and will follow-up with orthopedics, return precautions given Differential Diagnosis Differential Diagnosis: Fracture, contusion Quality:SDOH Health Related Social Needs: No Data to Display PFSH All Active Problems (Updated 08/19/24 @ 15:00 by Mike Chauhan MD) Contusion of elbow, left (Acute) Closed left humeral fracture (Acute) Medical History (Updated 08/19/24 @ 15:00 by Mike Chauhan MD) History of abnormal cervical Pap smear Jan 2022: HPV+/normal cytology. [place]: no bx. Needs repeat pap Fall 2022 Syncope Postmenopausal bleeding 1 episode in Dec 2021, normal sono so no bx done. Will need bx if any future bleeding. Normal colonoscopy (~03/19/21) Asthma Hearing deficit Edentulous IBS (irritable bowel syndrome) GERD (gastroesophageal reflux disease) Depression Anxiety Abnormal finding on EKG had normal cath in past. Saw Cardiology resently and was cleared for surgery Learning disability Surgical History Appendectomy Arthroplasty of knee left cardiac cath pt. states 4-5 days, and f/u with PCP section History of colonoscopy (~03/19/21) stoiber History of hip replacement Laparoscopy, diagnostic with drainage of ovarian cyst Ligation of fallopian tube Replacement of total knee joint right Family History Other Diabetes Essential hypertension Hyperlipidemia Social History Smoking/Tobacco Use Status: Never Smoking risk assessment performed?: Yes Alcohol Intake: never Drug use: Never Substance use type: does not use Housing: apartment Do you feel safe at home: Yes Do you feel safe in your relationship?: Yes Female Reproductive History Menstrual Age of Menarche: 13 Duration of menses: 3-5 days control method: none Menopause type: natural History History 3 Para 0 Hx # Term Pregnancies Multiple births Hx # Pregnancies Ectopic pregnancies AB induced Hx Number of Living Children AB spontaneous
[2024-08-19] MEDS: oxyCODONE 5 MG TAB PO ×2 (12:52→15:04)
== END 2024-08-19 15:43 | disposition home or self-care (01) ==
PROVIDERS: Emergency Provider Emergency Medicine; PCP Nurse Practitioner Acute Care
DX: S42.292A Other displaced fracture of upper end of left humerus, initial encounter for closed fracture (principal); S50.02XA Contusion of left elbow, initial encounter; W01.198A Fall on same level from slipping, tripping and stumbling with subsequent striking against other object, initial encounter; Y93.01 Activity, walking, marching and hiking; Y92.481 Parking lot as the place of occurrence of the external cause
CPT/HCPCS: 99283; 73030; 73070

== ENCOUNTER 2024-08-21 01:29 | Outpatient (CLI) | payer MEDICAID, SELFPAY ==
--- NOTE | 2024-08-21 07:30 | DI.CT_ITS ---
Exam(s) CT UPPER EXTREMITY LT WO EXAM: CT UPPER EXTREMITY LT WO CLINICAL HISTORY: SURGICAL PLANNING,CLOSED LT HUMERAL FX,S42.302A TECHNIQUE: Imaging Protocol: Axial computed tomography images with coronal and sagittal reformatted images were created and reviewed. CONTRAST MATERIAL: Noncontrast COMPARISON: CR XR SHOULDER LT COMPLETE 2+V from 08/19/2024 FINDINGS: Bones: There is a comminuted fracture of the humeral head and neck. The greater tuberosity is fractu red as a separate fragment. There other smaller fragments. There is some impaction. No additional fractures are identified. No cellulitic or osteomyelitic changes are identified. No lytic or sclerotic lesions are identified. Atiny degenerative subchondral cyst is noted at the tip of the acromion. Joints: There is minimal spurring at the inferior glenoid. There is no evidence of joint space narro wing of the glenohumeral joint. The there is no significant spurring at the AC joint. Soft Tissues: Soft tissue swelling around the humeral head. IMPRESSION: Comminuted, impacted fracture of the humeral head/neck. RADIATION DOSE DELIVERED: Total DLP DATA REPOSITORY: All CT scans at this facility are submitted to the National Radiology Data Registry (NRDR) Dose Index Registry (DIR) with the [employer] (ACR). RADIATION OPTIMIZATION: All CT scans at this facility use at least one of these dose optimization te chniques: automated exposure control; mA and/or kV adjustment per patient size (includes targeted exa ms where dose is matched to clinical indication); or iterative reconstruction.
== END 2024-08-21 01:49 ==
LOC: DI 01:29
PROVIDERS: PCP Nurse Practitioner Acute Care; Visit Provider Student in an Organized Health Care Education/Training Program
DX: S42.292D Other displaced fracture of upper end of left humerus, subsequent encounter for fracture with routine healing (principal); X58.XXXD Exposure to other specified factors, subsequent encounter
CPT/HCPCS: 73200

== ENCOUNTER 2025-02-10 02:22 | Outpatient (CLI) | payer MEDICAID, SELFPAY ==
--- NOTE | 2025-02-10 | DI.RAD_ITS ---
Exam(s) XR SHOULDER LT COMPLETE 2+V EXAM: XR SHOULDER LT COMPLETE 2+V CLINICAL HISTORY: FX PROXIMAL LT HUMERUS S42.202D ? INTERVAL CHANGE. TECHNIQUE: 2D digital imaging was performed of the left shoulder. Six images were obtained. AP, Grashey, Y-view and axillary views were obtained. COMPARISON: CR XR SHOULDER LT COMPLETE 2+V from 08/19/[address] UPPER EXTREMITY LT WO from 08/21/2024 FINDINGS: BONES: Since the prior examination, the patient has undergone an open reduction and internal fixation of the proximal left humeral fracture. The alignment of the proximal humerus appears near anatomic. JOINTS: No dislocation present. There are mild degenerative changes seen at both the acromioclavicular and glenohumeral joints. SOFT TISSUE: Normal. IMPRESSION: Status post open reduction and internal fixation of the proximal left humeral fracture. The orthopedic hardware is unremarkable. The fracture appears well healed. DATA REPOSITORY: RADIATION DOSE DELIVERED:
== END 2025-02-10 02:42 ==
LOC: DI 02:22
PROVIDERS: PCP Nurse Practitioner Acute Care; Visit Provider Orthopaedic Surgery Adult Reconstructive Orthopaedic Surgery
DX: S42.292D Other displaced fracture of upper end of left humerus, subsequent encounter for fracture with routine healing (principal); X58.XXXD Exposure to other specified factors, subsequent encounter
CPT/HCPCS: 73030